=== PATIENT | female | born 1955 | race Caucasian/White ===

== ENCOUNTER → 2021-09-13 | Outpatient (CLI) | payer MEDICARE ==
--- NOTE | 2021-09-13 15:43 | XR ---
EXAMINATION TYPE: XR chest 2V DATE OF EXAM: 09/13/2021 COMPARISON: NONE TECHNIQUE: PA and lateral views submitted. HISTORY: Cough FINDINGS: The lungs are clear and there is no pneumothorax, pleural effusion, or focal pneumonia. Large 7.4 c m mass right upper lobe. Hyperinflation suggests COPD. Hypertrophic changes of the spine. Heart size normal with no overt failure. IMPRESSION: 1. Large 7.4 cm right upper lobe lung mass correlate for history of malignancy..
--- NOTE | 2021-09-13 16:15 | BD ---
EXAMINATION TYPE: Axial Bone Density DATE OF EXAM: 09/13/2021 COMPARISON: 2006 CLINICAL HISTORY: Postmenopausal screening Height: 5 FT 3 1/2 IN Weight: 126 FRAX RISK QUESTIONS: Alcohol (3 or more units per day): NO Family History (Parent hip fracture): NO Glucocorticoids (More than 3mos): NO (Ex: prednisone, prednisolone, methylprednisolone, dexamethasone, and hydrocortisone). History of Fracture in Adulthood: YES Secondary Osteoporosis: 1. Type 1 Diabetes: NO 2. Hyperthyroidism: NO 3. Menopause before 45: YES 4. Malnutrition: NO 5. Chronic liver disease: NO Rheumatoid Arthritis: YES Current Tobacco Use: YES RISK FACTORS HISTORY OF: Surgery to Spine/Hip(right/left)/Wrist (right/left): NO Family History of Osteoporosis: NO Active: SOMEWHAT Diet low in dairy products/other sources of calcium: NO Postmenopausal woman: YES HYST Take estrogen and/or progesterone medications: NO Lost more than 2 inches in height since high school: NO MEDICATIONS: Thyroid Medications: YES Which medication: SYNTHROID How Long: APPROX 30 YEARS Additional Medications: SYNTHROID, SINGULAIR, LISINOPRIL ,ALBUTEROL Additional History: EXAM MEASUREMENTS: Bone mineral densitometry was performed using the [employer] System. Bone mineral density as measured about the Lumbar spine is: ----- L1-L4(G/cm2): 1.099 T Score Values are as follows: ----- L2: -1.2 ----- L3: 0.2 ----- L4: -0.6 ----- L1-L4: -0.7 Bone mineral density has: NO CHANGE % since study of: 2006 Bone mineral density about the R hip (g/cm2): 0.777 Bone mineral density about the L hip (g/cm2): 0.803 T Score values are as follows: -----R Neck: -1.9 -----L Neck: -1.7 -----R Total: -2.0 -----L Total: -1.7 Bone mineral density has: DECREASED -11.3 % since study of: 2006 IMPRESSION: Osteopenia (T Score between -2.5 and -1). There is slightly increased risk of fracture and the patient may be considered for treatment. Re-Screen 2-5 years. NOTE: T-SCORE=SD OF THE YOUNG ADULT MEAN.
== END | disposition home or self-care (01) ==
LOC: RADBDWWP 15:06
PROVIDERS: ATTEND Family Medicine
DX: R91.8 Other nonspecific abnormal finding of lung field (principal); M85.89 Other specified disorders of bone density and structure, multiple sites; Z78.0 Asymptomatic menopausal state; Z79.899 Other long term (current) drug therapy
CPT/HCPCS: 71046; 77080

== ENCOUNTER → 2021-09-17 | Outpatient (CLI) | payer MEDICARE ==
--- NOTE | 2021-09-18 14:17 | MM ---
Reason for exam: screening (asymptomatic). Last mammogram was performed 14 years and 8 months ago. History: Patient is postmenopausal. 2 cyst aspirations of the left breast. Taking estrogen for 8 years 1 month beginning at age 43. Physical Findings: A clinical breast exam by your physician is recommended on an annual basis and results should be correlated with mammographic findings. MG 3D Screening Mammo W/Cad Bilateral CC and MLO view(s) were taken. Prior study comparison: January 26, 2007, bilateral screening mammogram w/CAD. December 12, 2005, CAD bilateral diagnostic mammogram. The breast tissue is heterogeneously dense. This may lower the sensitivity of mammography. There is chronic nodularity bilaterally. No significant changes when compared with prior studies. ASSESSMENT: Benign, BI-RAD 2 RECOMMENDATION: Routine screening mammogram of both breasts in 1 year.
== END | disposition home or self-care (01) ==
LOC: RADMAMWWP 16:29
PROVIDERS: ATTEND Family Medicine
DX: Z12.31 Encounter for screening mammogram for malignant neoplasm of breast (principal); Z78.0 Asymptomatic menopausal state
CPT/HCPCS: 77063; 77067

== ENCOUNTER → 2021-09-18 | Outpatient (CLI) | payer MEDICARE ==
[2021-09-18 07:57] LABS: African American GFR (CKD) >90 (>60 ml/min/1.73 sqM); Blood Urea Nitrogen 9 mg/dL (7-17); Non-African American GFR(CKD) 79 (>60 ml/min/1.73 sqM)
--- NOTE | 2021-09-18 09:30 | CT ---
EXAMINATION TYPE: CT chest w con DATE OF EXAM: 09/18/2021 COMPARISON: Radiograph 09/13/2021 HISTORY: 65-year-old female cough, D38.1, Lung mass TECHNIQUE: Contiguous axial scanning of the chest after the administration of 100 ml mL of Isovue 300 . Coronal/sagittal reconstructions performed. CT DLP: 163.1mGycm. Automatic exposure control utilized for a dose reduction. FINDINGS: Heart normal size with trace anterior pericardial effusion measuring 5 mm thick. Aorta normal caliber with mild atherosclerotic arch calcifications and balloon configuration to the a ortic arch. There is a medially located right upper lobe mass which cuts off the apical segmental bronchi measuri ng 7.9 cm craniocaudal (coronal image 35) by 6.7 x 5.9 cm. Some internal areas of early cavitary brown ge are demonstrated. There is contiguous right hilar lymphadenopathy measuring up to 3.5 x 2.2 cm. There is also adjacent precarinal lymphadenopathy measuring 1.9 x 1.8 cm. Moderate to advanced centrilobular emphysema. Septal thickening in the right upper lobe with some mil d volume loss and some patchy density which extends up to the apex likely postobstructive changes. Cl inical correlation to exclude postobstructive pneumonitis. 3 mm peripheral left basilar pulmonary nodule, axial image 51 is nonspecific. 3 mm left lower lobe pulmonary nodule, axial image 48 is nonspecific. 4 mm left mid lung pulmonary nodule, axial ex 35 is nonspecific. Nodular thickening left adrenal gland measuring 1.7 x 1.0 cm is nonspecific. Adrenal adenoma is possi ble. Scattered cortical hypodensities in both kidneys measuring up to 1.4 cm likely cysts. Bones: There is a destructive soft tissue lesion of the L1 vertebral body with mild extraosseous exte nsion into the ventral epidural space. IMPRESSION: 1. COPD with moderate to advanced emphysema. 2. Medial right upper lobe mass measuring 7.9 x 6.7 x 5.9 cm cutting off the apical segmental right u pper lobe bronchi. Endobronchial sampling recommended for tissue diagnosis. Some areas of early inter nal cavitation are demonstrated. Some postobstructive changes are present. Correlate to exclude posto bstructive pneumonitis. 3. Metastatic right hilar and precarinal lymphadenopathy. Additional lytic, soft tissue osseous metas tasis to the L1 vertebral body. 4. A 1.7 x 1.0 cm left adrenal gland nodule is nonspecific. Adrenal adenoma and early adrenal metasta sis are both in the differential. The former is somewhat favored. PET/CT can further evaluate. 5. A few left-sided pulmonary nodules measuring up to 4 mm are nonspecific.
== END | disposition home or self-care (01) ==
LOC: RADCTMAIN 07:03
PROVIDERS: ATTEND Family Medicine
DX: J43.9 Emphysema, unspecified (principal); R91.8 Other nonspecific abnormal finding of lung field; R59.0 Localized enlarged lymph nodes
CPT/HCPCS: 82565; 84520; 71260; 36415; Q9967

== ENCOUNTER 2021-09-27 10:48 | Day surgery (SDC) | payer MEDICARE ==
[2021-09-25 13:21] VITALS: BMI 21.9
[~2021-09-27 10:48] MED LIST: ALBUTEROL NEB (CONC) 2.5 MG/0.5 ML INHALATION ONE; LACTATED RINGERS 1,000 ML IV SCH; LIDOCAINE 2% (PF) 20 MG/ML 5 ML VIAL INHALATION ONE; LIDOCAINE VISCOUS 300 MG/15 ML CUP MUCOUS MEM ONE; SODIUM CHLORIDE 0.9% 1,000 ML IV SCH
[2021-09-27 11:22] VITALS: RESP 16
[2021-09-27] MEDS ORDERED: MIDAZOLAM 2 MG/2 ML VIAL IVP ONE (12:23)
--- NOTE | 2021-09-27 12:43 | CT ---
EXAMINATION TYPE: CT Chest theresa Felton Protocol DATE OF EXAM: 09/27/2021 COMPARISON: 09/18/2021 HISTORY: Pre bronchial navigation CT DLP: 658 mGycm, Automated exposure control for dose reduction was used. CONTRAST: Performed injected with 0 mL of Isovue 300. TECHNIQUE: Axial images were obtained at 5 mm thick sections. Reconstructed images are reviewed on [employer] computer in the coronal plane. FINDINGS: Portion of the thyroid visualized is normal. There is a 6.8 cm mass in the right upper lobe. This extends to the hilum. There is a 1.9 cm pretracheal lymph node just above the level of the aneesh. The ascending aorta jarad meter at the level of the main pulmonary artery is 3.2 cm. The main pulmonary artery diameter at the bifurcation is 2.[address] sections are obtained through the upper abdomen. Abdomen is essentially unremarkable. IMPRESSIONS: 1. Right upper lobe lung mass. 2. Enlarged pretracheal lymph node.
[2021-09-27] MEDS ORDERED: PHENYLEPHRINE-0.9% NACL SYG 1,000 MCG/10 ML SYRINGE ONE (13:00)
[2021-09-27] MEDS ORDERED: SUCCINYLCHOLINE CHLORIDE 100 MG/5 ML SYR IV ONE (13:00)
[2021-09-27] MEDS ORDERED: PROPOFOL 10 MG/ML 20 ML VIAL IV ONE (13:00)
[2021-09-27] MEDS ORDERED: fentaNYL (PF) 50 MCG/ML 2 ML AMP ONE (13:00)
[2021-09-27] MEDS ORDERED: MIDAZOLAM 2 MG/2 ML VIAL ONE (13:00)
--- NOTE | 2021-09-27 13:56 | P.PCN ---
Date of Procedure: 09/27/21 Operative Findings: Postoperative Diagnosis: 1 right upper lobe mass 2 mediastinal lymphadenopathy Postoperative Diagnosis: 1 right upper lobe mass 2 mediastinal lymphadenopathy 3 bronchial stenosis involving the apical segment of the right upper lobe with some endobronchial irregularities consistent of cancer. Procedure(s) Performed: 1 Navigational flexible bronchoscopy, airway inspection 2 endoscopic ultrasound (EBUS) 3 EBUS guided transbronchial needle aspirate of station 4R and station 10 R lymph nodes Surgeon: Casey Lorenzana Side Laster Staple #1: Kristine Mathew (Mervinjorje) Estimated Blood Loss (ml): 0 Pathology: other Condition: stable Disposition: same day Operative Findings: The patient underwent a CAT scan of the chest using the Veran protocol. The appropriate the pads were applied to her chest. The images were reviewed and the right upper lobe mass was mapped and all of this information was uploaded into a USB and later on into the medications hour. After obtaining the consent the patient was taken to the OR suite he was intubated and put on MV by anesthesia then the scope was advanced to the ET tube until the Trachea was seen and it was normal and then the aneesh appears normal then the scope advanced to the left main and VIKA LB1-LB3 were seen and no endobronchial lesions were seen then the scope advanced to the lingula and the LB4 and LB5 were seen and no endobronchial lesions were seen the scope retracted and advanced to the left lower lobes LB6 to LB12 were seen one by one and no endobronchial lesions, then the scope was retracted back to the aneesh and advanced to the Right main and RUL RB1 and RB2 and RB3 were seen one by one and there was endobronchial lesions causing significant narrowing and obstruction of the apical segment of the right upper lobe. Anterior segment and the posterior segments were patent within normal limits. Following that, the bronchoscope was retracted and advanced to the BI and RML RB4 and RB5 were seen and no endobronchial lesions were seen then it was retracted and advanced to the RLL RB6 to RB12 were seen one by one and no endobronchial lesions. The appropriate calibration was done using the aneesh and the secondary aneesh on the left as a reference points. Other navigational guidance, the bronchoscope was advanced to the right upper lobe and multiple biopsies of the right upper lobe mass was done. Following that, transbronchial brushing of the right upper lobe and lavage of the right upper lobe was done with a total of 80 mL of fluid was infused in 20 mL was suctioned back. The flexible bronchoscope was removed and the EBUS bronchoscope was introduced. The EBUS was used and the lymph nodes were examined. Direct measurement of the mediastinal lymph nodes revealed a 1.9x3 cm station 4R lymph node, and a very large station 10 R lymph node which was probably the extension of the right upper lobe mass. I performed transbronchial needle aspirate of station 4R and a total of 3 passes FNA without major bleeding station 10R lymph nodes were a total of 3 passes were obtained. No major bleeding and the scope was removed and taken out in total the patient was send to the floor in stable condition
[2021-09-27 14:05] VITALS: TEMP 97
--- NOTE | 2021-09-27 14:51 | XR ---
EXAMINATION TYPE: XR chest 1V portable DATE OF EXAM: 09/27/2021 COMPARISON: 09/13/2021 INDICATION: Post bronchoscopy TECHNIQUE: Single frontal view of the chest is obtained. FINDINGS: The heart size is normal. The pulmonary vasculature is normal. No pneumothorax is evident on this study. The 6 cm mass at the right suprahilar region is again evident. IMPRESSION: 1. No pneumothorax post bronchoscopy. Right suprahilar mass remains present.
[2021-09-27 15:09] VITALS: BP 152/78; PULSE 79
== END 2021-09-27 15:39 | disposition home or self-care (01) ==
LOC: ORWHC2ENDO 10:48
PROVIDERS: ATTEND Internal Medicine Critical Care Medicine
DX: C96.9 Malignant neoplasm of lymphoid, hematopoietic and related tissue, unspecified (principal); J44.9 Chronic obstructive pulmonary disease, unspecified; E03.9 Hypothyroidism, unspecified; I10 Essential (primary) hypertension; F17.210 Nicotine dependence, cigarettes, uncomplicated; K21.9 Gastro-esophageal reflux disease without esophagitis; M19.90 Unspecified osteoarthritis, unspecified site; Z79.899 Other long term (current) drug therapy
CPT/HCPCS: 88104; 88108; 88305; 88173; 88342; 88341; 71045; 71250; 31629; 31625; 31623; 31624; 31627; 31653; J2250; J3010; J2370; J0330; J2704

== ENCOUNTER → 2021-09-28 | Outpatient (CLI) | payer MEDICARE ==
--- NOTE | 2021-09-30 11:56 | PE ---
EXAMINATION TYPE: PET CT fusion skull to thigh DATE OF EXAM: 09/28/2021 COMPARISON: NONE chest CT September 18, 2021 HISTORY: Newly diagnosed lung cancer. TECHNIQUE: Following the intravenous administration of 11.79 mCi of F-18 FDG, whole body images are performed from the skull base to the midthigh. Images are reviewed on the computer in the coronal, a xial, and sagittal planes. Reconstructed rotating images are created on independent workstation and reviewed on the computer. A localization and attenuation correction CT is performed in conjunction with the PET scan. Blood glucose level equals 106 SCAN: Initial Scan FINDINGS: SKULL BASE AND NECK: No suspicious abnormal hypermetabolic uptake. Mild uptake at the level of vocal cords is symmetric presumed physiologic. CHEST, MEDIASTINUM, AND HILAR REGION: Frontal moderate to advanced underlying emphysematous change redemonstrated. Persistent hypermetaboli c left upper lobe mass extending to left hilar level measuring 6.8 x 5.9 cm axial image 84, central n ecrosis is present. Max SUV is 10.95. Abnormal hypermetabolic 2.3 x 1.8 cm paracarinal lymph node axial image 91, Max SUV is 6.25. ABDOMEN AND PELVIS: Normal excretion is seen. No adrenal masses. OSSEOUS STRUCTURES: Suspicious hypermetabolic destructive lesion L1 vertebral extends into the anteri or spinal canal axial image 142, max SUV is 8.88. OTHER CT: Ixhy-sg-lmfpeyjo calcified plaque bilateral carotid bulb level. Nasal septum deviated to ri ght of midline. Coronary calcifications are present. Mild/moderate calcified plaque of the aorta extends into branch vessels. Sigmoid colonic diverticulos is. There is a pessary type device in the vagina. Uterus is absent or atrophic. Slight underlying sco liotic curvature. IMPRESSION: Large right upper lung neoplasm extending to right hilar region. Abnormal paracarinal rosa elena nopathy. Large destructive lesion L1 vertebral extends into the anterior aspect of the spinal canal.
== END | disposition home or self-care (01) ==
LOC: RADPETMAIN 10:25
PROVIDERS: ATTEND Internal Medicine Critical Care Medicine
DX: C34.11 Malignant neoplasm of upper lobe, right bronchus or lung (principal); J43.9 Emphysema, unspecified; R59.0 Localized enlarged lymph nodes; G95.89 Other specified diseases of spinal cord
CPT/HCPCS: 78815; A9552

== ENCOUNTER 2021-10-25 10:15 | Inpatient (IN) | payer MEDICARE ==
[2021-10-25] MEDS ORDERED: SODIUM CHLORIDE 0.9% 1,000 ML IV STA (10:57)
[2021-10-25] MEDS ORDERED: MORPHINE SULFATE 4 MG/ML SYRINGE IVP STA (10:57)
[2021-10-25 11:28] LABS: Basophils % (A) 0 %; Eosinophils # (A) 0.3 k/uL (0-0.7); Eosinophils % (A) 1 %; HGB 12.4 gm/dL (11.4-16.0); Lymphocytes # (A) 0.5 k/uL (1.0-4.8); Lymphocytes % (A) 2 %; MCH 30.7 pg (25.0-35.0); MCHC 33.6 g/dL (31.0-37.0); MCV 91.2 fL (80.0-100.0); Mean Platelet Volume 7.3; Monocytes % (A) 4 %; Neutrophils # (A) 24.6 k/uL (1.3-7.7); Neutrophils % (A) 93 %; Platelet Count 376 k/uL (150-450); RBC 4.06 m/uL (3.80-5.40); RDW 14.7 % (11.5-15.5); WBC 26.6 k/uL (3.8-10.6)
[2021-10-25 11:45] LABS: ALT 22 U/L (4-34); African American GFR (CKD) >90 (>60 ml/min/1.73 sqM); Albumin 3.1 g/dL (3.5-5.0); Anion Gap 6 mmol/L; Blood Urea Nitrogen 29 mg/dL (7-17); Calcium 8.7 mg/dL (8.4-10.2); Carbon Dioxide 22 mmol/L (22-30); Chloride 107 mmol/L (98-107); Glucose 111 mg/dL (74-99); Non-African American GFR(CKD) >90 (>60 ml/min/1.73 sqM); Sodium 135 mmol/L (137-145); Total Bilirubin 0.6 mg/dL (0.2-1.3); Total Protein 6.7 g/dL (6.3-8.2)
[2021-10-25 11:52] LABS: AST 24 U/L (14-36); Alkaline Phosphatase 75 U/L (38-126); Potassium 4.2 mmol/L (3.5-5.1)
--- NOTE | 2021-10-25 12:16 | XR ---
EXAMINATION TYPE: XR Hip RT and AP Pelvis DATE OF EXAM: 10/25/2021 COMPARISON: NONE HISTORY: Pain TECHNIQUE: A single AP view of the pelvis is obtained. Two views of the right hip are obtained. FINDINGS: There is no acute fracture/dislocation evident in the pelvis. Moderate to severe arthropat hy of the hips. No acute fracture. Mild arthropathy of the SI joints. No destructive changes seen. IMPRESSION: 1. Arthropathy of the hips but no evidence of destructive change or acute fracture. Correlate with bandar ne scan as clinically warranted.
--- NOTE | 2021-10-25 12:17 | XR ---
EXAM TYPE: LUMBAR SPINE X RAY SERIES COMPARISON: NONE HISTORY: Pain TECHNIQUE: 3 views are submitted. FINDINGS: Compression fracture of L1 with probable destructive changes. Hypertrophic and degenerative change re maining lumbar spine. Vascular calcifications of the aorta. Facet arthropathy. IMPRESSION: 1. Probable pathologic compression fracture L1 which is been previously noted by PET scan. Correlate with MRI as clinically warranted. Suspected degree of retropulsion.
--- NOTE | 2021-10-25 12:48 | ED ---
Extremity Problem HPI - General Chief complaint: Extremity Problem,Nontraumatic Stated complaint: hip pain Time Seen by Provider: 10/25/21 10:43 Source: patient, RN notes reviewed Mode of arrival: wheelchair Limitations: no limitations - History of Present Illness Initial comments: Patient is a 65-year-old female that presents to the emergency Department from the oncologist's office for pain control. Patient notes she has not had a normal bowel movement in almost 2 weeks. Patient did have blood work this morning but it was outpatient. 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 She's done radiation to the spine 6. She notes that she cannot go home at this type of pain she is having difficulty just laying in bed by herself. Patient notes that her oncologist wants her admitted for pain control and constipation. Patient denied any other issues or complaints. She was very uncomfortable and emotionally distress while laying in bed. She denied chest pain shortness of breath headache nausea vomiting diarrhea constipation fever fatigue chills. - Related Data Home Medications Medication Instructions Recorded Confirmed Albuterol Sulfate [Proair Hfa] 2 puff INHALATION RT-Q6H PRN 09/25/21 10/25/21 Levothyroxine Sodium [Synthroid] 125 mcg PO DAILY 09/25/21 10/25/21 Lisinopril [Prinivil] 10 mg PO DAILY 09/25/21 10/25/21 Montelukast Sodium [Singulair] 10 mg PO HS 09/25/21 10/25/21 Multivitamins, Thera [Multivitamin 1 tab PO DAILY 09/25/21 10/25/21 (formulary)] Aspirin EC [Ecotrin Low Dose] 81 mg PO DAILY 10/25/21 10/25/21 Cholecalciferol [Vitamin D3 (25 25 mcg PO DAILY 10/25/21 10/25/21 Mcg = 1000 Iu)] Dexamethasone [Decadron] 4 mg PO Q6H 10/25/21 10/25/21 HYDROcodone/APAP 5-325MG [Gerry 1 tab PO Q6H PRN 10/25/21 10/25/21 5-325] Lisinopril [Prinivil] 5 mg PO HS 10/25/21 10/25/21 Vitamin C W/Zinc 1 tab PO DAILY 10/25/21 10/25/21 Zolpidem [Ambien] 10 mg PO HS PRN 10/25/21 10/25/21 Allergies Allergy/AdvReac Type Severity Reaction Status Date / Time procaine [From Novocain] Allergy Swelling Verified 10/25/21 12:40 Review of Systems ROS Statement: Those systems with pertinent positive or pertinent negative responses have been documented in the HPI. ROS Other: All systems not noted in ROS Statement are negative. Past Medical History Past Medical History: COPD, Hypertension Additional Past Medical History / Comment(s): "I have a spot on my lungs". 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 History of Any Multi-Drug Resistant Organisms: None Reported Past Surgical History: Hysterectomy Past Anesthesia/Blood Transfusion Reactions: No Reported Reaction Past Psychological History: No Psychological Hx Reported Smoking Status: Former smoker Past Alcohol Use History: None Reported Past Drug Use History: None Reported - Past Family History Father Family Medical History: No Reported History General Exam Limitations: no limitations General appearance: alert, in no apparent distress Head exam: Present: atraumatic, normocephalic, normal inspection Eye exam: Present: normal appearance, PERRL, EOMI. Absent: scleral icterus, conjunctival injection, periorbital swelling ENT exam: Present: normal exam, mucous membranes moist Neck exam: Present: normal inspection Respiratory exam: Present: normal lung sounds bilaterally. Absent: respiratory distress, wheezes, rales, rhonchi, stridor Cardiovascular Exam: Present: regular rate, normal rhythm, normal heart sounds. Absent: systolic murmur, diastolic murmur, rubs, gallop, clicks GI/Abdominal exam: Present: soft, normal bowel sounds. Absent: distended, tenderness, guarding, rebound, rigid Extremities exam: Present: normal inspection, full ROM, normal capillary refill. Absent: tenderness, pedal edema, joint swelling, calf tenderness Back exam: Present: normal inspection, paraspinal tenderness (Right low back) Neurological exam: Present: alert, oriented X3 Psychiatric exam: Present: normal affect, normal mood Skin exam: Present: warm, dry, intact, normal color. Absent: rash Course Vital Signs 10/25/21 10:33 Temperature 97.9 F Pulse Rate 91 Respiratory 17 Rate Blood Pressure 154/92 O2 Sat by Pulse 99 Oximetry Medical Decision Making - Medical Decision Making 65-year-old female complaining of low back pain and constipation for 2 weeks. Basic labs, x-ray lumbar and right hip ordered. Labs show a white count of 26.6, rest of labs are unremarkable. X-ray imaging shows no acute fractures dislocations or processes. Case discussed with Dr. Galloway, patient will be admitted per [facility] request for intractable pain and constipation. Dr. Aggarwal was consulted and will accept the admit, wants a CT of the abdomen and pelvis ordered. - Lab Data Result diagrams: 10/25/21 11:10/25/21 11: Lab Results 10/25/21 10/25/21 Range/Units 11:21 11:21 WBC 26.6 H (3.8-10.6) k/uL RBC 4.06 (3.80-5.40) m/uL Hgb 12.4 (11.4-16.0) gm/dL Hct 37.0 (34.0-46.0) % MCV 91.2 (80.0-100.0) fL MCH 30.7 (25.0-35.0) pg MCHC 33.6 (31.0-37.0) g/dL RDW 14.7 (11.5-15.5) % Plt Count 376 (150-450) k/uL MPV 7.3 Neutrophils % 93 % Lymphocytes % 2 % Monocytes % 4 % Eosinophils % 1 % Basophils % 0 % Neutrophils # 24.6 H (1.3-7.7) k/uL Lymphocytes # 0.5 L (1.0-4.8) k/uL Monocytes # 1.0 (0-1.0) k/uL Eosinophils # 0.3 (0-0.7) k/uL Basophils # 0.0 (0-0.2) k/uL Sodium 135 L (137-145) mmol/L Potassium 4.2 (3.5-5.1) mmol/L Chloride 107 (98-107) mmol/L Carbon Dioxide 22 (22-30) mmol/L Anion Gap 6 mmol/L BUN 29 H (7-17) mg/dL Creatinine 0.57 (0.52-1.04) mg/dL Est GFR (CKD-EPI)AfAm >90 (>60 ml/min/1.73 sqM) Est GFR (CKD-EPI)NonAf >90 (>60 ml/min/1.73 sqM) Glucose 111 H (74-99) mg/dL Calcium 8.7 (8.4-10.2) mg/dL Total Bilirubin 0.6 (0.2-1.3) mg/dL AST 24 (14-36) U/L ALT 22 (4-34) U/L Alkaline Phosphatase 75 (38-126) U/L Total Protein 6.7 (6.3-8.2) g/dL Albumin 3.1 L (3.5-5.0) g/dL - Radiology Data Radiology results: report reviewed, image reviewed X-ray of the lumbar spine: Probable pathologic compression fracture L1 which is been previously noted by PET scan. Correlate with MRI as clinically warranted suspect degree of retropulsion. X-ray the right hip and pelvis: Arthropathy of the hips but no evidence of distress change or acute fracture. Correlate with bone scan as clinically warranted. Disposition Clinical Impression: Constipation, Intractable pain Disposition: ADMITTED IP TO THIS [facility] Condition: Stable Is patient prescribed a controlled substance at d/c from ED?: No Referrals: Keenan Aggarwal DO [Primary Care Provider] - 1-2 days Time of Disposition: 12:53
[2021-10-25] MEDS ORDERED: NALOXONE 0.4 MG/ML 1 ML VIAL IV PRN (12:50)
--- NOTE | 2021-10-25 13:59 | CT ---
EXAMINATION TYPE: CT abdomen pelvis w con DATE OF EXAM: 10/25/2021 HISTORY: Rt hip pain, constipation, adenocarcinoma with bone mets CT DLP: 621.6mGycm Automated Exposure Control for Dose Reduction was Utilized. CONTRAST: CT scan of the abdomen and pelvis is performed without oral but with IV Contrast, patient injected wi th 100 mL of Isovue 300. COMPARISON: PET CT September 28, 2021. FINDINGS: LUNG BASES: Emphysematous change visualized lung bases.. LIVER/GB: No significant abnormality is appreciated. PANCREAS: No significant abnormality is seen. SPLEEN: No significant abnormality is seen. ADRENALS: No significant abnormality is seen. KIDNEYS: Scattered simple appearing thin-walled cysts seen throughout both kidneys. BOWEL: No suspicious small or large bowel dilatation. Moderate diffuse colonic fecal prominence now identified. Left and Sigmoid colonic diverticula are redemonstrated, no CT evidence for acute diverti culitis. UTERUS/ADNEXA: Uterus surgically absent or atrophic. Intravaginal pessary type device redemonstrated. LYMPH NODES: No greater than 1cm abdominal or pelvic lymph nodes are appreciated. OSSEOUS STRUCTURES: Redemonstration of pathologic fracture involving L1 vertebra with posterior exten jean paul into anterior spinal canal sagittal image 70. OTHER: Moderate peripheral plaque aorta extends into branch vessels. IMPRESSION: New moderate diffuse colonic fecal stasis. No bowel obstruction. No additional significan t new or acute finding is seen to account for patient's clinical symptoms.
[2021-10-25] MEDS: MORPHINE SULFATE 4 MG/ML SYRINGE IV PRN ×2 (16:47→22:35)
[2021-10-25] MEDS: SODIUM CHLORIDE 0.9% 1,000 ML IV SCH (19:29)
[2021-10-26] MEDS: MORPHINE SULFATE 4 MG/ML SYRINGE IV PRN ×3 (01:41→09:20)
[2021-10-26] MEDS: SODIUM CHLORIDE 0.9% 1,000 ML IV SCH ×3 (02:26→15:51)
[2021-10-26 11:24] VITALS: BMI 21.9
--- NOTE | 2021-10-26 11:55 | P.PAINCN ---
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, pt states no BM past 2 weeks since PET/cat scan, hypothyroid, bilateral pedal edema History of Any Multi-Drug Resistant Organisms: None Reported Past Surgical History: Hysterectomy Additional Past Surgical History / Comment(s): 09/27/21 bronchoscopy Past Anesthesia/Blood Transfusion Reactions: No Reported Reaction Smoking Status: Former smoker - Past Family History Father History Unknown: Yes Family Medical History: No Reported History Mother Family Medical History: Diabetes Mellitus Additional Family Medical History / Comment(s): Mother had a "bad heart" and at the age of 56yrs Medications and Allergies Home Medications Medication Instructions Recorded Confirmed Type Albuterol Sulfate [Proair Hfa] 2 puff INHALATION RT-Q6H PRN 09/25/21 10/25/21 History Levothyroxine Sodium [Synthroid] 125 mcg PO DAILY 09/25/21 10/25/21 History Lisinopril [Prinivil] 10 mg PO DAILY 09/25/21 10/25/21 History Montelukast Sodium [Singulair] 10 mg PO HS 09/25/21 10/25/21 History Multivitamins, Thera [Multivitamin 1 tab PO DAILY 09/25/21 10/25/21 History (formulary)] Aspirin EC [Ecotrin Low Dose] 81 mg PO DAILY 10/25/21 10/25/21 History Cholecalciferol [Vitamin D3 (25 25 mcg PO DAILY 10/25/21 10/25/21 History Mcg = 1000 Iu)] Dexamethasone [Decadron] 4 mg PO Q6H 10/25/21 10/25/21 History HYDROcodone/APAP 5-325MG [[place] 1 tab PO Q6H PRN 10/25/21 10/25/21 History 5-325] Lisinopril [Prinivil] 5 mg PO HS 10/25/21 10/25/21 History Vitamin C W/Zinc 1 tab PO DAILY 10/25/21 10/25/21 History Zolpidem [Ambien] 10 mg PO HS PRN 10/25/21 10/25/21 History Allergies Allergy/AdvReac Type Severity Reaction Status Date / Time procaine [From Novocain] Allergy Swelling Verified 10/25/21 12:40 Physical Exam Vitals: Vital Signs Temp Pulse Pulse Resp BP BP Pulse Ox 10/26/21 05:17 97.6 F 67 18 169/82 92 L 10/25/21 22:55 98.1 F 85 18 170/91 95 10/25/21 22:30 18 10/25/21 19:34 89 15 135/84 99 10/25/21 14:40 90 18 139/87 99 Intake and Output 10/25/21 10/26/21 10/26/21 22:59 06:59 14:59 Other: Voiding Method Toilet # Voids 3 Weight 56.245 kg Physical Examinations : -Constitutiona : Cooperative , not in acute distress . -HEENT : nech : supple , no Lymphadenopathy , normal thyroid size . : eyes : no ptosis , no icterus, no p hotophobia . - neurologic : Cranial nerve II to XII intact , no focal neurological deffecit . -psychatric : alert , oriented X 3 , appropriate affect , intact judgment and insight . -Lymphatic : no Lymphadenopathy . - musculoskeltal : Lumber spine moter stegnth lower extremities ,thigh and legs 5/5 Right side , 4/5 Left side deep tendon reflexes : normal Knee Jerk , normal ankle Jerk lumber facet Loading Test =positive Right , positive Left Range of motion of the lumbar spine Flexion 30 degrees, extension 10 degrees strait leg raising test = positive at 60 degree Fabere test= positive Right , and positive LT . Tenderness over the upper part of the lumbar spine. Sever tenderness over the Sacroiliac joint on the Right . Gaenslen test= positive right . Seated flexion test= positive right . Distraction test= positive right Sacroiliac compression test= positive right Results CBC & Chem 7: 10/25/21 11:21 10/25/21 11:21 Labs: Abnormal Lab Results - Last 24 Hours (Table) 10/25/21 Range/Units 11:21 Sodium 135 L (137-145) mmol/L BUN 29 H (7-17) mg/dL Glucose 111 H (74-99) mg/dL Albumin 3.1 L (3.5-5.0) g/dL Comments: X-ray of the lumbar spine compression fracture of L1 lumbar degenerative disc disease and lumbar facet arthropathy. pet scan= right upper lung neoplasm and large destructive lesion extend to L1 Assessment and Plan Plan: Assessment and plan=1-intractable pain. 2-pain secondary to malignancy. 3-compression fracture L1 vertebral. 4-lumbar spondylosis with lumbar facet arthropathy. 5-right sacroiliitis. The clinical findings support that currently most of the pain is coming from the right sacroiliac joint. She could benefit from a right sacroiliac joint steroid injection which can be done today under fluoroscopy guidance. Seizure risk and benefits and alternatives discussed with the patient she agreed to proceed Time with Patient: Greater than 30 PQRS Measure Charge Sheet PQRS Narrative: Do You Want the Pneumonia Yes Vaccine AT THIS TIME? Blood Pressure [Right Arm] 169/82 Blood Pressure 135/84 Pain Intensity [Right Hip] 8 Pain Intensity [Lower Back] 8 Pain Intensity 8 Pain Scale Used Numeric (1 - 10) Scale Used Numeric (1 - 10) Home Medications: Ambulatory Orders Albuterol Sulfate [Proair Hfa] 2 puff INHALATION RT-Q6H PRN 09/25/21 Levothyroxine Sodium [Synthroid] 125 mcg PO DAILY 09/25/21 Lisinopril [Prinivil] 10 mg PO DAILY 09/25/21 Montelukast Sodium [Singulair] 10 mg PO HS 09/25/21 Multivitamins, Thera [Multivitamin (formulary)] 1 tab PO DAILY 09/25/21 Aspirin EC [Ecotrin Low Dose] 81 mg PO DAILY 10/25/21 Cholecalciferol [Vitamin D3 (25 Mcg = 1000 Iu)] 25 mcg PO DAILY 10/25/21 Dexamethasone [Decadron] 4 mg PO Q6H 10/25/21 HYDROcodone/APAP 5-325MG [[place] 5-325] 1 tab PO Q6H PRN 10/25/21 Lisinopril [Prinivil] 5 mg PO HS 10/25/21 Vitamin C W/Zinc 1 tab PO DAILY 10/25/21 Zolpidem [Ambien] 10 mg PO HS PRN 10/25/21
[2021-10-26] MEDS ORDERED: ALBUTEROL NEBULIZED 2.5 MG/3 ML INHALATION PRN (13:15)
[2021-10-26] MEDS ORDERED: ZOLPIDEM 5 MG TAB PO PRN (13:15)
[2021-10-26] MEDS ORDERED: NA PHOS,M-B/NA PHOS,DI-BA 133 ML ENEMA RECTAL STA (13:15)
[2021-10-26] MEDS ORDERED: IV FLUID CONTINUATION 1,000 ML IV ONE (13:54)
[2021-10-26] MEDS ORDERED: ROPIVACAINE 5MG/ML 20ML VIAL ONE (14:28)
[2021-10-26] MEDS ORDERED: methylPREDNISolone ACETATE 40 MG/ML 1 ML VIAL ONE (14:28)
--- NOTE | 2021-10-26 14:54 | P.PCN ---
Date of Procedure: 10/26/21 Procedure(s) Performed: Procedure= Right sacroiliac joints steroid injection under fluoroscopy guidance (fluoroscopy image stored on file in the radiology Department ) Preoperative diagnosis= 1- Right sacroiliitis 2-lumbar degenerative disc disease 3-lumbar spondylosis with facet arthropathy Postoperative diagnosis=Same as preop Diagnosis . Complication = none Condition= stable Anesthesia= local anesthesia with ropivacaine 0.5% one mL. Indication for the procedure= patient complaining of low back pain , examination was positive for severe tenderness over the sacroiliac joints bilaterally and patient diagnosed with sacroiliitis, for this reason she was good candidate for sacroiliac joint steroid injection. Description of the procedure= procedure risk and benefits discussed with the patient, including but not limited, risk of infection and bleeding, and ALLERGIC reaction to the medication and not complete pain relief and patient agreed with the preceding patient taken to the operating room, placed in prone position or standard monitors applied to the patient then after induction of anesthesia back prepped with chlorhexidine 3 times , Then under strict sterile technique, I did the right sacroiliac joint the which was identified under fluoroscopy guidance been local infiltration of the skin and subcu interstitial with lidocaine 1% then 25-gauge Quincke Needle advanced slowly under fluoroscopy and placed in the right sacroiliac joint needle placement confirmed with AP and oblique and lateral view and after appropriate needle placement confirmed and after negative aspiration, or heme , then Ropivacaine 0.5% 4 mL, and 40 mg of Depo-Medrol mixed together and injected in the right sacroiliac joint after negative aspiration patient tolerated the procedure well without any complication.
--- NOTE | 2021-10-26 14:55 | FL ---
EXAMINATION TYPE: FL guided pain mgmt statistic DATE OF EXAM: 10/26/2021 HISTORY: Fluoroscopy time 7 seconds of fluoroscopy provided. IMPRESSION: 1. Fluoroscopy time.
[2021-10-26] MEDS: LACTULOSE 20 GM/30 ML CUP PO SCH (15:52)
[2021-10-26] MEDS: LEVOTHYROXINE 125 MCG TAB PO SCH (15:52)
[2021-10-26] MEDS: CHOLECALCIFEROL 25 MCG (1000 IU) TABLET PO SCH (15:52)
[2021-10-26] MEDS: PANTOPRAZOLE 40 MG/10 ML VIAL IVP SCH (15:52)
[2021-10-26] MEDS: lisinopriL 10 MG TAB PO SCH (15:53)
[2021-10-26] MEDS: ASPIRIN 81 MG PO SCH (15:53)
[2021-10-26] MEDS: MULTIVITAMINS, THERA 1 EACH TAB PO SCH (15:53)
--- NOTE | 2021-10-26 16:29 | P.CONS ---
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 This lesion has spinal canal invasion and the patient presents with significant pain. The patient completed a course of palliative radiotherapy from T12 to L2 finishing on October 19, 2021. She is subsequently been hospitalized now complaining of severe right buttock pain and also complaining of constipation. The patient reports that she was initially feeling much better after initiating radiotherapy and dexamethasone. However, she states this past she began having severe pain in the upper right buttock region. When this pain would flareup, it would radiate to the groin. This does seem to be in a different location from her prior pain, which was more consistent with her L1 metastatic disease. When the pain became intractable, she presented to the ER on October 25. She did have a repeat CT scan of the abdomen and pelvis which revealed the known L1 metastatic lesion, as well as moderate fecal stasis with no evidence of acute change. The patient was seen by pain management, and earlier today underwent an injection into the right sacroiliac joint with corticosteroids. There were concerned about right sacroiliitis. The patient reports she is feeling much better, but she is just recently completed this procedure. She has not attempted to get up and move around much since the procedure. Review of Systems Constitutional: Denies chills, Denies fever Eyes: denies blurred vision Ears, nose, mouth and throat: Denies headache Cardiovascular: Denies chest pain Respiratory: Denies cough, Denies dyspnea Gastrointestinal: Reports constipation Musculoskeletal: Reports low back pain Integumentary: Denies rash Neurological: Denies confusion Psychiatric: Denies anxiety, Denies depression 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, pt states no BM past 2 weeks since PET/cat scan, hypothyroid, bilateral pedal edema History of Any Multi-Drug Resistant Organisms: None Reported Past Surgical History: Hysterectomy Additional Past Surgical History / Comment(s): 09/27/21 bronchoscopy Past Anesthesia/Blood Transfusion Reactions: No Reported Reaction Smoking Status: Former smoker - Past Family History Father History Unknown: Yes Family Medical History: No Reported History Mother Family Medical History: Diabetes Mellitus Additional Family Medical History / Comment(s): Mother had a "bad heart" and di ed at the age of 56yrs Medications and Allergies Home Medications Medication Instructions Recorded Confirmed Type Albuterol Sulfate [Proair Hfa] 2 puff INHALATION RT-Q6H PRN 09/25/21 10/25/21 History Levothyroxine Sodium [Synthroid] 125 mcg PO DAILY 09/25/21 10/25/21 History Lisinopril [Prinivil] 10 mg PO DAILY 09/25/21 10/25/21 History Montelukast Sodium [Singulair] 10 mg PO HS 09/25/21 10/25/21 History Multivitamins, Thera [Multivitamin 1 tab PO DAILY 09/25/21 10/25/21 History (formulary)] Aspirin EC [Ecotrin Low Dose] 81 mg PO DAILY 10/25/21 10/25/21 History Cholecalciferol [Vitamin D3 (25 25 mcg PO DAILY 10/25/21 10/25/21 History Mcg = 1000 Iu)] Dexamethasone [Decadron] 4 mg PO Q6H 10/25/21 10/25/21 History HYDROcodone/APAP 5-325MG [[place] 1 tab PO Q6H PRN 10/25/21 10/25/21 History 5-325] Lisinopril [Prinivil] 5 mg PO HS 10/25/21 10/25/21 History Vitamin C W/Zinc 1 tab PO DAILY 10/25/21 10/25/21 History Zolpidem [Ambien] 10 mg PO HS PRN 10/25/21 10/25/21 History Allergies Allergy/AdvReac Type Severity Reaction Status Date / Time procaine [From Novocain] Allergy Swelling Verified 10/25/21 12:40 Physical Exam Vitals: Vital Signs Temp Pulse Pulse Resp BP BP Pulse Ox 10/26/21 13:55 89 20 152/76 95 10/26/21 12:32 97.7 F 85 17 158/88 94 L 10/26/21 05:17 97.6 F 67 18 169/82 92 L 10/25/21 22:55 98.1 F 85 18 170/91 95 10/25/21 22:30 18 10/25/21 19:34 89 15 135/84 99 Intake and Output 10/26/21 10/26/21 10/26/21 06:59 14:59 22:59 Intake Total 50 Balance 50 Intake: IV 50 Other: Voiding Method Toilet # Voids 3 Weight 56.245 kg - Constitutional General appearance: no acute distress - EENT Eyes: EOMI, PERRLA ENT: hearing grossly normal - Neck Neck: no lymphadenopathy - Respiratory Respiratory: bilateral: CTA - Cardiovascular Rhythm: regular - Gastrointestinal General gastrointestinal: no distended, no tenderness - Neurologic Neurologic: CNII-XII intact - Musculoskeletal Musculoskeletal: strength equal bilaterally - Psychiatric Psychiatric: A&O x's 3, appropriate affect, intact judgment & insight Results CBC & Chem 7: 10/25/21 11:21 10/25/21 11:21 CT scan - abdomen: report reviewed, image reviewed CT scan - pelvis: report reviewed, image reviewed Assessment and Plan Assessment: The patient is a 65-year-old female with a history of a clinical stage BLAISE (cT4, cN2, M1b) 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 This lesion has spinal canal invasion and the patient presents with significant pain. The patient completed a course of palliative radiotherapy from T12 to L2 finishing on October 19, 2021. She is subsequently been hospitalized now complaining of severe right buttock pain and also complaining of constipation. Plan: 1. Right upper buttock pain: This pain seems different in nature and location compared to the patient's initial presenting pain a few weeks ago prior to initiating radiotherapy. Following radiotherapy, the patient has had some increase in compression of the disc at L1. It is possible that the tumor is causing some more impingement, but this radiculopathy would not typically radiate to the buttock (although the groin is possible). I would recommend MRI of the LS spine to ensure that this increased compression has not resulted in retropulsion and spinal cord compromise. If this has, the patient would likely benefit from evaluation with spine surgery considering she has already completed a course of radiotherapy just 1 week prior. The patient is currently on 4 mg of Dex 4 times a day. 2. NSCLC - metastatic: Currently awaiting biomarker testing prior to initiation of therapy. Patient does need an MRI of the brain to rule out metastatic disease. This could be done as on an outpatient basis. Time with Patient: Less than 30
[2021-10-26] MEDS: MORPHINE SULFATE ER 15 MG TABLET PO SCH ×2 (16:33→21:30)
[2021-10-26] MEDS: dexAMETHasone 4 MG TAB PO SCH ×2 (16:34→17:22)
[2021-10-26] MEDS: MAG HYDROX/AL HYDROX/SIMETH 30 ML, diphenhydrAMINE ELIXIR 75 MG, LIDOCAINE VISCOUS 30 ML PO SCH ×6 (16:34→21:31)
[2021-10-26] MEDS: MONTELUKAST 10 MG TAB PO SCH (21:30)
[2021-10-26] MEDS: SENNOSIDES-DOCUSATE SODIUM 1 EACH TAB PO SCH (21:30)
[2021-10-26] MEDS: lisinopriL 5 MG TAB PO SCH (21:31)
--- NOTE | 2021-10-26 22:25 | P.CONS ---
History of Present Illness - Reason for Consult Consult date: 10/26/21 Pain and COnstipation Requesting physician: Chriss Roland - History of Present Illness Jud is referred by Dr Lorenzana after recent CT Scan and bronchoscopy revealed Adenocarcinoma of lung She stated having increasing cough X 6-12 months, had CXR > CT Scan > RUL 7.9 cm mass with R hilar & Pre-carinal lymphadenopathy. PET Scan: Highly supicious RUL and lymphadenopathy, as well as, L1 metastatic lesion. C/O increasing back pain X 2 months, Tyleno+Motrin not enough for pain control. Has anorexia & weight loss of 30-40 LBS X 3-6 months. She smoked 1 PPD X 45 years, quit 1 months ago. She was seen in office on 10/25/21 in severe pain. She also had complaints of severe constipation. She was taking 2 norco every 4 hours without relief. therefore she was sent to er for further evaluation. Pain management did evaluate and administer corticosteroid injection into hip. She stated this provided a little relief however still in pain. Her pain medication was adjusted with the addition of long acting Morphine sulfate and IV MS PRN. A bowel regimen was added to her daily scheduled medications as well. Review of Systems All systems: negative Constitutional: Reports as per HPI 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, pt states no BM past 2 weeks since PET/cat scan, hypothyroid, bilateral pedal edema History of Any Multi-Drug Resistant Organisms: None Reported Past Surgical History: Hysterectomy Additional Past Surgical History / Comment(s): 09/27/21 bronchoscopy Past Anesthesia/Blood Transfusion Reactions: No Reported Reaction Smoking Status: Former smoker - Past Family History Father History Unknown: Yes Family Medical History: No Reported History Mother Family Medical History: Diabetes Mellitus Additional Family Medical History / Comment(s): Mother had a "bad heart" and at the age of 56yrs Medications and Allergies Home Medications Medication Instructions Recorded Confirmed Type Albuterol Sulfate [Proair Hfa] 2 puff INHALATION RT-Q6H PRN 09/25/21 10/25/21 History Levothyroxine Sodium [Synthroid] 125 mcg PO DAILY 09/25/21 10/25/21 History Lisinopril [Prinivil] 10 mg PO DAILY 09/25/21 10/25/21 History Montelukast Sodium [Singulair] 10 mg PO HS 09/25/21 10/25/21 History Multivitamins, Thera [Multivitamin 1 tab PO DAILY 09/25/21 10/25/21 History (formulary)] Aspirin EC [Ecotrin Low Dose] 81 mg PO DAILY 10/25/21 10/25/21 History Cholecalciferol [Vitamin D3 (25 25 mcg PO DAILY 10/25/21 10/25/21 History Mcg = 1000 Iu)] Dexamethasone [Decadron] 4 mg PO Q6H 10/25/21 10/25/21 History HYDROcodone/APAP 5-325MG [[place] 1 tab PO Q6H PRN 10/25/21 10/25/21 History 5-325] Lisinopril [Prinivil] 5 mg PO HS 10/25/21 10/25/21 History Vitamin C W/Zinc 1 tab PO DAILY 10/25/21 10/25/21 History Zolpidem [Ambien] 10 mg PO HS PRN 10/25/21 10/25/21 History Allergies Allergy/AdvReac Type Severity Reaction Status Date / Time procaine [From Novocain] Allergy Swelling Verified 10/25/21 12:40 Physical Exam Vitals: Vital Signs Temp Pulse Pulse Resp BP BP Pulse Ox 10/26/21 13:55 89 20 152/76 95 10/26/21 12:32 97.7 F 85 17 158/88 94 L 10/26/21 05:17 97.6 F 67 18 169/82 92 L 10/25/21 22:55 98.1 F 85 18 170/91 95 10/25/21 22:30 18 10/25/21 19:34 89 15 135/84 99 10/25/21 14:40 90 18 139/87 99 Intake and Output 10/25/21 10/26/21 10/26/21 22:59 06:59 14:59 Other: Voiding Method Toilet Toilet # Voids 3 Weight 56.245 kg - Constitutional General appearance: cooperative, mild distress - EENT Eyes: EOMI ENT: hard of hearing, NA/AT - Neck Neck: normal ROM - Respiratory Respiratory: bilateral: diminished - Cardiovascular Rhythm: regular - Gastrointestinal General gastrointestinal: soft, tenderness - Integumentary Integumentary: pale - Neurologic non focal - Musculoskeletal Musculoskeletal: generalized weakness - Psychiatric Psychiatric: A&O x's 3 Results CBC & Chem 7: 10/25/21 11:21 10/25/21 11:21 CT scan - abdomen: report reviewed CT scan - pelvis: report reviewed Assessment and Plan (1) Constipation Current Visit: Yes Status: Acute Code(s): K59.00 - CONSTIPATION, UNSPECIFIED SNOMED Code(s): 67899580 (2) Intractable pain Current Visit: Yes Status: Acute Code(s): R52 - PAIN, UNSPECIFIED SNOMED Code(s): 42065022 (3) Mass of upper lobe of right lung Current Visit: No Status: Acute Code(s): R91.8 - OTHER NONSPECIFIC ABNORMAL FINDING OF LUNG FIELD SNOMED Code(s): 381333138 (4) Mediastinal adenopathy Current Visit: No Status: Acute Code(s): R59.0 - LOCALIZED ENLARGED LYMPH NODES SNOMED Code(s): 47725282 (5) Metastatic adenocarcinoma Current Visit: Yes Status: Acute Code(s): C79.9 - SECONDARY MALIGNANT NEOPLASM OF UNSPECIFIED SITE SNOMED Code(s): 844166724775205 Plan: Goals of admission is Pain management and Constipation relief - Senna-s and miralax scheduled - Pain Management following status post injection - Further evaluation of hip with MRI if not improved over next 24 hours - Status post Palliaitive radiation to spine and continues on dexamethasone for cord involvement, PPI - Long acting pain manageent added MSER 15 q12 and PRN MS IVP Physician Attest: I have completed the full history and physical and agree with above dictation, dictated as a scribe
[2021-10-27] MEDS: dexAMETHasone 4 MG TAB PO SCH ×4 (01:03→17:11)
[2021-10-27 04:25] LABS: Basophils % (A) 0 %; Eosinophils # (A) 0.1 k/uL (0-0.7); Eosinophils % (A) 1 %; HCT 34.7 % (34.0-46.0); HGB 11.3 gm/dL (11.4-16.0); Lymphocytes # (A) 0.4 k/uL (1.0-4.8); Lymphocytes % (A) 3 %; MCH 30.4 pg (25.0-35.0); MCHC 32.4 g/dL (31.0-37.0); MCV 93.7 fL (80.0-100.0); Mean Platelet Volume 7.1; Monocytes # (A) 0.3 k/uL (0-1.0); Monocytes % (A) 2 %; Neutrophils # (A) 15.6 k/uL (1.3-7.7); Neutrophils % (A) 94 %; Platelet Count 218 k/uL (150-450); RDW 15.5 % (11.5-15.5); WBC 16.7 k/uL (3.8-10.6)
[2021-10-27] MEDS: SODIUM CHLORIDE 0.9% 1,000 ML IV SCH ×4 (05:39→18:10)
[2021-10-27] MEDS: LEVOTHYROXINE 125 MCG TAB PO SCH (06:02)
[2021-10-27] MEDS ORDERED: ASCORBIC ACID 500 MG TAB PO SCH (09:00)
[2021-10-27] MEDS: CHOLECALCIFEROL 25 MCG (1000 IU) TABLET PO SCH (10:22)
[2021-10-27] MEDS: MULTIVITAMINS, THERA 1 EACH TAB PO SCH (10:23)
[2021-10-27] MEDS: lisinopriL 10 MG TAB PO SCH (10:24)
[2021-10-27] MEDS: ASPIRIN 81 MG PO SCH (10:24)
[2021-10-27] MEDS: MORPHINE SULFATE ER 15 MG TABLET PO SCH ×2 (10:24→20:21)
[2021-10-27] MEDS: PANTOPRAZOLE 40 MG/10 ML VIAL IVP SCH (10:25)
[2021-10-27] MEDS: SENNOSIDES-DOCUSATE SODIUM 1 EACH TAB PO SCH ×2 (10:28→20:21)
[2021-10-27] MEDS: polyethylene glycoL 3350 17 GM POWD.PACK PO SCH (10:28)
[2021-10-27] MEDS: LACTULOSE 20 GM/30 ML CUP PO SCH (10:29)
[2021-10-27 10:58] LABS: African American GFR (CKD) 121.1 (60.0-200.0); Anion Gap 11.4 mmol/L (10.00-18.00); BUN/Creat Ratio 30.29 Ratio (12.00-20.00); Blood Urea Nitrogen 13.6 mg/dL (9.0-27.0); Calcium 8.1 mg/dL (8.7-10.3); Carbon Dioxide 19.2 mmol/L (20.0-27.5); Non-African American GFR(CKD) 104.5 (60.0-200.0); Potassium 3.5 mmol/L (3.5-5.5)
[2021-10-27] MEDS: MORPHINE SULFATE 4 MG/ML SYRINGE IV PRN (14:12)
[2021-10-27] MEDS: MAG HYDROX/AL HYDROX/SIMETH 30 ML, diphenhydrAMINE ELIXIR 75 MG, LIDOCAINE VISCOUS 30 ML PO SCH ×9 (14:12→20:23)
[2021-10-27] MEDS: HYDROmorphone 0.5 MG/0.5 ML SYRINGE IVP PRN (16:05)
[2021-10-27] MEDS: KETOROLAC 30 MG/ML 1 ML VIAL IVP PRN (17:10)
[2021-10-27] MEDS: methylPREDNISolone SOD SUCCI 125 MG/2 ML VIAL IV SCH ×2 (18:06→23:11)
--- NOTE | 2021-10-27 18:43 | HP ---
HISTORY AND PHYSICAL I am covering for Dr. Aggarwal. DATE OF SERVICE: 10/27/2021 CHIEF COMPLAINT: Right hip pain. 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 The patient apparently had an injection in the back. The patient also had radiation to the spine 6 times. Because of significant pain on the hip which is felt while twisting, the patient came to [facility] and was admitted for further evaluation and treatment. Multiple consultants are following the patient closely. Multiple x-rays and a CT scan have been done which were personally reviewed by me. The plain radiograph showed arthropathy of the hip, but no evidence of any destruction. CT scan of the abdomen and pelvis was also done which showed moderate diffuse colonic fecal stasis. Dr. Goldberg performed right sacroiliac joint steroid injection under fluoroscopy. Dr. Bennett is following the patient as well as hematology/oncology team. The patient also had mediastinal adenopathy. There is no history of any fever, rigor or chills at this time. PAST MEDICAL HISTORY: History of COPD, history of GERD, hypertension, hyperlipidemia, hypothyroidism, adenocarcinoma of the right upper lung with metastases. HOME MEDICATIONS: Ambien, vitamin Z, multivitamin, Singulair, Prinivil, Synthroid, hydrocodone, dexamethasone, cholecalciferol, aspirin, albuterol. Doses are reviewed. ALLERGIES: PROCAINE. FAMILY HISTORY: History of heart disease in mother. SOCIAL HISTORY: History of alcohol. History of THC. REVIEW OF SYSTEMS: ENT: No diminished hearing. No diminished vision. CARDIOVASCULAR SYSTEM: As mentioned earlier. RESPIRATORY SYSTEM: As mentioned earlier. GI: As mentioned earlier. : No dysuria. NERVOUS SYSTEM: No numbness, weakness. ALLERGY/IMMUNOLOGY: No asthma or hay fever. MUSCULOSKELETAL: As mentioned earlier. HEMATOLOGY/ONCOLOGY: No history of anemia. ENDOCRINE: As mentioned earlier. CONSTITUTIONAL: As mentioned earlier. DERMATOLOGY: Negative. RHEUMATOLOGY: Negative. PSYCHIATRY: As mentioned earlier. PHYSICAL EXAMINATION: Patient alert and oriented x3. Pulse 70, blood pressure 151/81, respiration 18, temperature is 98.4, pulse ox 94% on room air. HEENT: Conjunctivae normal. NECK: No jugular venous distention. CARDIOVASCULAR: S1, S2 muffled. RESPIRATION: Breath sounds diminished at the bases. No rhonchi. No crackles. ABDOMEN: Soft. LEGS: Right leg pain present. NERVOUS SYSTEM: No focal deficit. LABS: WBC 16.7, hemoglobin 11.3. Sodium 137, potassium 3.5. ASSESSMENT: 1. Right leg pain and right hip pain and gait dysfunction. Rule out metastases. 2. Right upper lobe adenocarcinoma with metastases, status post spine radiation therapy. 3. Mediastinal lymphadenopathy. 4. Increased white count. 5. Anemia, normocytic. 6. Mild lymphopenia. 7. History of chronic obstructive pulmonary disease. 8. History of gastroesophageal reflux disease. 9. Hypertension. 10.History of pneumonia. 11.History of hypothyroidism. 12.History of hysterectomy. 13.Remote history of nicotine dependence. 14.FULL CODE. RECOMMENDATIONS AND DISCUSSION: In this 65-year-old woman who presented with multiple complex medical issues, we will monitor the patient closely, continue the current medications, continue with symptomatic treatment. Otherwise at this time I recommend continuing with pain medications. I would continue with dexamethasone, monitor blood sugars closely. I would also recommend Toradol. Repeat labs. Recommend a bone scan also. Prognosis is guarded because of multiple complex medical issues. Further recommendations to follow. A copy of this dictation is being forwarded to Dr. Aggarwal, who is the primary physician. MMTANISHAL / DEBIN: [id number] /
[2021-10-27 19:54] LABS: Glucose,Whole Blood 143 mg/dL (75-99)
[2021-10-27] MEDS: lisinopriL 5 MG TAB PO SCH (20:21)
[2021-10-27] MEDS: INSULIN ASPART (NovoLOG) 100 UNIT/ML VIAL SQ SCH (20:21)
[2021-10-27] MEDS: MONTELUKAST 10 MG TAB PO SCH (20:21)
[2021-10-28] MEDS: HYDROmorphone 0.5 MG/0.5 ML SYRINGE IVP PRN (01:41)
[2021-10-28] MEDS: SODIUM CHLORIDE 0.9% 1,000 ML IV SCH ×3 (03:33→17:37)
[2021-10-28] MEDS: KETOROLAC 30 MG/ML 1 ML VIAL IVP PRN ×3 (05:12→17:34)
[2021-10-28] MEDS: methylPREDNISolone SOD SUCCI 125 MG/2 ML VIAL IV SCH ×4 (05:12→23:16)
[2021-10-28] MEDS: LEVOTHYROXINE 125 MCG TAB PO SCH (05:13)
[2021-10-28 05:35] LABS: Basophils % (A) 0 %; Eosinophils % (A) 0 %; HCT 36.6 % (34.0-46.0); HGB 11.6 gm/dL (11.4-16.0); Lymphocytes # (A) 0.4 k/uL (1.0-4.8); Lymphocytes % (A) 3 %; MCH 30.2 pg (25.0-35.0); MCHC 31.6 g/dL (31.0-37.0); MCV 95.6 fL (80.0-100.0); Mean Platelet Volume 7.2; Monocytes # (A) 0.3 k/uL (0-1.0); Monocytes % (A) 2 %; Neutrophils # (A) 16.2 k/uL (1.3-7.7); Neutrophils % (A) 95 %; Platelet Count 217 k/uL (150-450); RBC 3.83 m/uL (3.80-5.40); RDW 15.4 % (11.5-15.5); WBC 17.1 k/uL (3.8-10.6)
[2021-10-28 07:25] LABS: Glucose,Whole Blood 170 mg/dL (75-99)
[2021-10-28] MEDS: polyethylene glycoL 3350 17 GM POWD.PACK PO SCH (08:20)
[2021-10-28] MEDS: CHOLECALCIFEROL 25 MCG (1000 IU) TABLET PO SCH (08:21)
[2021-10-28] MEDS: MULTIVITAMINS, THERA 1 EACH TAB PO SCH (08:21)
[2021-10-28] MEDS: MORPHINE SULFATE ER 15 MG TABLET PO SCH ×2 (08:21→22:22)
[2021-10-28] MEDS: LACTULOSE 20 GM/30 ML CUP PO SCH (08:21)
[2021-10-28] MEDS: SENNOSIDES-DOCUSATE SODIUM 1 EACH TAB PO SCH ×2 (08:21→22:21)
[2021-10-28] MEDS: INSULIN ASPART (NovoLOG) 100 UNIT/ML VIAL SQ SCH ×4 (08:21→22:22)
[2021-10-28] MEDS: ASPIRIN 81 MG PO SCH (08:21)
[2021-10-28] MEDS: PANTOPRAZOLE 40 MG TABLET PO SCH (08:21)
[2021-10-28] MEDS: ASCORBIC ACID 500 MG TAB PO SCH (08:22)
[2021-10-28] MEDS: lisinopriL 10 MG TAB PO SCH (08:22)
[2021-10-28] MEDS: MAG HYDROX/AL HYDROX/SIMETH 30 ML, diphenhydrAMINE ELIXIR 75 MG, LIDOCAINE VISCOUS 30 ML PO SCH ×9 (08:24→22:23)
[2021-10-28 10:51] LABS: African American GFR (CKD) 112.2 (60.0-200.0); Albumin 2.9 g/dL (3.8-4.9); Albumin/Globulin Ratio 1.06 (1.60-3.17); Anion Gap 11.9 mmol/L (10.00-18.00); BUN/Creat Ratio 34.74 Ratio (12.00-20.00); Blood Urea Nitrogen 19.7 mg/dL (9.0-27.0); Calcium 8.4 mg/dL (8.7-10.3); Carbon Dioxide 21.4 mmol/L (20.0-27.5); Globulin 2.7 g/dL (1.6-3.3); Non-African American GFR(CKD) 96.8 (60.0-200.0); Potassium 3.8 mmol/L (3.5-5.5); Total Bilirubin 0.3 mg/dL (0.30-1.20); Total Protein 5.6 g/dL (6.2-8.2)
[2021-10-28] MEDS: HYDROcodone/APAP 5-325MG 1 EACH TAB PO PRN ×2 (11:32→17:35)
[2021-10-28 12:14] LABS: Glucose,Whole Blood 81 mg/dL (75-99)
[2021-10-28 17:19] LABS: Glucose,Whole Blood 128 mg/dL (75-99)
--- NOTE | 2021-10-28 18:00 | PN ---
PROGRESS NOTE DATE OF SERVICE: 10/28/2021 I am covering for Dr. Aggarwal. This 65-year-old woman who was admitted with intractable pain is being closely monitored at this time. The patient also had a gluteal injection, also recently. The patient on multiple medications. The patient closely monitor monitored at this time. Lab bustos, white count is elevated to 17.1. The patient had evidence of mental status also on the recently done PET scan. Past medical history reviewed. REVIEW OF SYSTEMS: Cardiovascular: No angina. No palpitations. Respiration: As mentioned earlier. GI as mentioned earlier. : No dysuria. Nervous system: No numbness or weakness. CURRENT MEDICATIONS: Are reviewed and include: [place], vitamin C, aspirin, vitamin D3, Dilaudid. Doses reviewed. PHYSICAL EXAMINATION: Alert and oriented times three. Pulse is 81, blood pressure 170/84, respiration 18, temperature 97.8, pulse ox 95 percent on room air. HEENT: Conjunctivae normal. Neck: No JVD. Cardiovascular: S1, S2. Respiratory: Breath sounds diminished in the bases. A few scattered rhonchi. Abdomen: Soft. Nervous system: No focal deficits. LAB STUDIES: WBC 17.1. Labs are noted. ASSESSMENT: 1. Right leg pain and right hip and gluteal pain with severe gait dysfunction. Rule out metastasis. 2. Right upper lobe adenocarcinoma with METS status post spine radiation therapy. 3. Constipation. 4. Status post gluteal injection. 5. Mediastinal lymphadenopathy. 6. Increased WBC. 7. Anemia, normocytic. 8. Mild lymphopenia. 9. History of chronic obstructive pulmonary disease. 10.History of gastroesophageal reflux disease. 11.Hypertension. 12.History of pneumonia. 13.History of hypothyroidism. 14.History of hysterectomy. 15.Remote history of nicotine dependence. 16.FULL CODE: RECOMMENDATIONS AND DISCUSSION: Recommend to continue current medications, steroids, continue symptomatic treatment. Increase the dose of Toradol to 30 mg IV q.6h p.r.n. Otherwise, monitor renal functions closely. Otherwise Dr. Kenean Aggarwal will follow tomorrow and Hematology/Oncology and Radiation Oncology input appreciated. MMODL / DEBIN: [id number] /
[2021-10-28 20:16] LABS: Glucose,Whole Blood 176 mg/dL (75-99)
[2021-10-28] MEDS: MONTELUKAST 10 MG TAB PO SCH (22:21)
[2021-10-28] MEDS: lisinopriL 5 MG TAB PO SCH (22:22)
[2021-10-29] MEDS: HYDROcodone/APAP 5-325MG 1 EACH TAB PO PRN ×2 (03:28→12:32)
[2021-10-29] MEDS: KETOROLAC 30 MG/ML 1 ML VIAL IVP PRN (03:29)
[2021-10-29] MEDS: SODIUM CHLORIDE 0.9% 1,000 ML IV SCH ×2 (03:32→09:46)
[2021-10-29] MEDS: methylPREDNISolone SOD SUCCI 125 MG/2 ML VIAL IV SCH ×2 (06:01→12:33)
[2021-10-29] MEDS: LEVOTHYROXINE 125 MCG TAB PO SCH (06:03)
[2021-10-29 07:25] LABS: Glucose,Whole Blood 89 mg/dL (75-99)
[2021-10-29] MEDS: INSULIN ASPART (NovoLOG) 100 UNIT/ML VIAL SQ SCH ×4 (07:38→21:29)
[2021-10-29 08:07] LABS: Basophils # (A) 0.1 k/uL (0-0.2); Basophils % (A) 1 %; Eosinophils % (A) 0 %; HCT 38.7 % (34.0-46.0); HGB 11.9 gm/dL (11.4-16.0); Hypochromasia Moderate; Lymphocytes # (A) 0.3 k/uL (1.0-4.8); Lymphocytes % (A) 2 %; MCH 30.8 pg (25.0-35.0); MCHC 30.8 g/dL (31.0-37.0); MCV 100.1 fL (80.0-100.0); Macrocytosis Slight; Mean Platelet Volume 9.4; Monocytes # (A) 0.4 k/uL (0-1.0); Monocytes % (A) 2 %; Neutrophils # (A) 16.2 k/uL (1.3-7.7); Neutrophils % (A) 94 %; Platelet Count 152 k/uL (150-450); RBC 3.87 m/uL (3.80-5.40); RDW 15.3 % (11.5-15.5); WBC 17.3 k/uL (3.8-10.6)
[2021-10-29 09:28] LABS: African American GFR (CKD) 110.1 (60.0-200.0); Anion Gap 13.9 mmol/L (10.00-18.00); Calcium 8.4 mg/dL (8.7-10.3); Carbon Dioxide 18.1 mmol/L (20.0-27.5); Potassium 4.3 mmol/L (3.5-5.5)
[2021-10-29] MEDS: SENNOSIDES-DOCUSATE SODIUM 1 EACH TAB PO SCH ×2 (09:43→21:27)
[2021-10-29] MEDS: PANTOPRAZOLE 40 MG TABLET PO SCH (09:43)
[2021-10-29] MEDS: lisinopriL 10 MG TAB PO SCH (09:43)
[2021-10-29] MEDS: MULTIVITAMINS, THERA 1 EACH TAB PO SCH (09:43)
[2021-10-29] MEDS: ASPIRIN 81 MG PO SCH (09:44)
[2021-10-29] MEDS: MORPHINE SULFATE ER 15 MG TABLET PO SCH ×2 (09:44→21:27)
[2021-10-29] MEDS: CHOLECALCIFEROL 25 MCG (1000 IU) TABLET PO SCH (09:44)
[2021-10-29] MEDS: ASCORBIC ACID 500 MG TAB PO SCH (09:44)
[2021-10-29] MEDS: LACTULOSE 20 GM/30 ML CUP PO SCH (09:45)
[2021-10-29] MEDS: polyethylene glycoL 3350 17 GM POWD.PACK PO SCH (09:45)
[2021-10-29] MEDS: MAG HYDROX/AL HYDROX/SIMETH 30 ML, diphenhydrAMINE ELIXIR 75 MG, LIDOCAINE VISCOUS 30 ML PO SCH ×9 (09:46→21:28)
--- NOTE | 2021-10-29 10:31 | P.PN ---
Subjective Progress Note Date: 10/29/21 Principal diagnosis: Constipation, intractable back/hip pain In follow-up today patient reports bowel movement, decrease in her pain. She is status post steroid injection with pain management and she is on tramadol with good results. Objective - Vital Signs Vital signs: Vital Signs Temp 97.7 F 10/29/21 05:00 Pulse 68 10/29/21 05:00 Resp 16 10/29/21 05:00 BP 168/92 10/29/21 05:00 Pulse Ox 98 10/29/21 05:00 Intake & Output 10/28/21 10/29/21 10/29/21 18:59 06:59 18:59 Intake Total 120 590 Balance 120 590 Intake: Oral 120 590 Other: Voiding Method Toilet Bedside Commode Incontinent Bedpan # Voids 1 3 # Bowel Movements 3 2 - Constitutional General appearance: Present: average body habitus, cooperative, no acute distress - EENT Eyes: Present: anicteric sclerae, EOMI ENT: Present: hearing grossly normal - Respiratory Details: Respirations even and unlabored - Cardiovascular Rhythm: regular Heart sounds: normal: S1, S2 Abnormal Heart Sounds: Absent: systolic murmur, diastolic murmur, rub, S3 G allop, S4 Gallop, click, other - Peripheral edema leg Peripheral Edema: bilateral: None - Gastrointestinal General gastrointestinal: Present: soft - Integumentary Integumentary: Present: normal - Neurologic Neurologic: Present: CNII-XII intact - Musculoskeletal Musculoskeletal Comment(s): Patient is able to flex at the hip, bilateral lower extremity strength slightly weak but symmetrical. - Psychiatric Psychiatric: Present: A&O x's 3, appropriate affect, intact judgment & insight - Labs CBC & Chem 7: 10/29/21 06:44 10/29/21 06:44 Labs: Abnormal Lab Results - Last 24 Hours (Table) 10/28/21 10/28/21 10/28/21 Range/Units 05:06 17:17 20:14 WBC (3.8-10.6) k/uL MCV (80.0-100.0) fL MCHC (31.0-37.0) g/dL Neutrophils # (1.3-7.7) k/uL Lymphocytes # (1.0-4.8) k/uL Carbon Dioxide (20.0-27.5) mmol/L BUN/Creatinine Ratio 34.74 H (12.00-20.00) Ratio Glucose 154 H (70-110) mg/dL POC Glucose (mg/dL) 128 H 176 H (75-99) mg/dL Calcium 8.4 L (8.7-10.3) mg/dL AST 11 L (13-35) U/L Total Protein 5.6 L (6.2-8.2) g/dL Albumin 2.9 L (3.8-4.9) g/dL Albumin/Globulin Ratio 1.06 L (1.60-3.17) g/dL 10/29/21 10/29/21 Range/Units 06:44 06:44 WBC 17.3 H (3.8-10.6) k/uL MCV 100.1 H (80.0-100.0) fL MCHC 30.8 L (31.0-37.0) g/dL Neutrophils # 16.2 H (1.3-7.7) k/uL Lymphocytes # 0.3 L (1.0-4.8) k/uL Carbon Dioxide 18.1 L (20.0-27.5) mmol/L BUN/Creatinine Ratio 35.00 H (12.00-20.00) Ratio Glucose (70-110) mg/dL POC Glucose (mg/dL) (75-99) mg/dL Calcium 8.4 L (8.7-10.3) mg/dL AST (13-35) U/L Total Protein (6.2-8.2) g/dL Albumin (3.8-4.9) g/dL Albumin/Globulin Ratio (1.60-3.17) g/dL Assessment and Plan (1) Constipation due to opioid therapy Narrative/Plan: Patient has had a BM. She will continue on stool softening agents/mild laxative as long as she is on pain medications. Current Visit: Yes Status: Acute Priority: High Code(s): K59.03 - DRUG INDUCED CONSTIPATION; T40.2X5A - ADVERSE EFFECT OF OTHER OPIOIDS, INITIAL ENCOU NTER SNOMED Code(s): 841542805704648 (2) Intractable pain Narrative/Plan: Patient is status post radiation to the spinal lesion. Patient has received a steroid injection into the hip with improvement in pain. Patient states that Tramadol is working very well for her pain. Continue as prescribed. Current Visit: Yes Status: Resolved Priority: High Code(s): R52 - PAIN, UNSPECIFIED SNOMED Code(s): 20437581 (3) Metastatic adenocarcinoma Narrative/Plan: Patient has completed radiation for spinal lesion that was causing symptoms. She continues on dexamethasone 4 mg 4 times a day. F/U as scheduled Current Visit: Yes Status: Acute Priority: High Code(s): C79.9 - SECONDARY MALIGNANT NEOPLASM OF UNSPECIFIED SITE SNOMED Code(s): 393852020742459 Plan: Doctor attests: I performed a history and physical examination of this patient, developed impression and plan of care. Discussed with dictator. I agree with dictators note, documented as a scribe.
[2021-10-29 12:33] LABS: Glucose,Whole Blood 151 mg/dL (75-99)
--- NOTE | 2021-10-29 15:32 | P.PN ---
Subjective Progress Note Date: 10/29/21 Principal diagnosis: right hip pain / history of metastatic lung ca Patient reports she is still having some intermittent right hip pain. This can radiate to the groin or up the back. She states it can be up to 6-7/10 when it comes on. Still is better than prior to admission. Has been up with walker. Was very constipated, but got relief yesterday. She is using [place] + MS Contin. Objective - Vital Signs Vital signs: Vital Signs Temp 97.6 F 10/29/21 12:33 Pulse 83 10/29/21 12:33 Resp 20 10/29/21 12:33 BP 182/95 10/29/21 12:33 Pulse Ox 97 10/29/21 12:33 Intake & Output 10/28/21 10/29/21 10/29/21 18:59 06:59 18:59 Intake Total 120 590 Balance 120 590 Intake: Oral 120 590 Other: Voiding Method Toilet Bedside Commode Bedside Commode Incontinent Bedpan Bedpan # Voids 1 3 # Bowel Movements 3 2 - Constitutional General appearance: Present: no acute distress - EENT Eyes: Present: EOMI, PERRLA ENT: Present: hearing grossly normal - Neck Neck: Absent: lymphadenopathy - Respiratory Respiratory: bilateral: CTA - Cardiovascular Rhythm: regular - Gastrointestinal General gastrointestinal: Absent: distended - Integumentary Integumentary: Absent: calor, cellulitis - Neurologic Neurologic: Present: CNII-XII intact - Musculoskeletal Musculoskeletal: Present: strength equal bilaterally - Labs CBC & Chem 7: 10/29/21 06:44 10/29/21 06:44 Labs: Abnormal Lab Results - Last 24 Hours (Table) 10/28/21 10/28/21 10/29/21 Range/Units 17:17 20:14 06:44 WBC 17.3 H (3.8-10.6) k/uL MCV 100.1 H (80.0-100.0) fL MCHC 30.8 L (31.0-37.0) g/dL Neutrophils # 16.2 H (1.3-7.7) k/uL Lymphocytes # 0.3 L (1.0-4.8) k/uL Carbon Dioxide (20.0-27.5) mmol/L BUN/Creatinine Ratio (12.00-20.00) Ratio POC Glucose (mg/dL) 128 H 176 H (75-99) mg/dL Calcium (8.7-10.3) mg/dL 10/29/21 10/29/21 Range/Units 06:44 12:32 WBC (3.8-10.6) k/uL MCV (80.0-100.0) fL MCHC (31.0-37.0) g/dL Neutrophils # (1.3-7.7) k/uL Lymphocytes # (1.0-4.8) k/uL Carbon Dioxide 18.1 L (20.0-27.5) mmol/L BUN/Creatinine Ratio 35.00 H (12.00-20.00) Ratio POC Glucose (mg/dL) 151 H (75-99) mg/dL Calcium 8.4 L (8.7-10.3) mg/dL Assessment and Plan Assessment: The patient is a 65-year-old female with a history of a clinical stage BLAISE (cT4, cN2, M1b) 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 This lesion has spinal canal invasion and the patient presents with significant pain. The patient completed a course of palliative radiotherapy from T12 to L2 finishing on October 19, 2021. She is subsequently been hospitalized now complaining of severe right buttock pain and also complaining of constipation. Plan: 1. Right upper buttock pain: This pain seems different in nature and location compared to the patient's initial presenting pain a few weeks ago prior to initiating radiotherapy (was more mid-lower back consistent with L1 lesion). Pain is improving, but now on long acting pain medication. Would start to wean Decadron to 4 mg TID. Still consider MRI of the Lumbar/sacrum if patient is not progressing. No clear need for further radiotherapy to this area. Time with Patient: Less than 30
[2021-10-29 17:35] LABS: Glucose,Whole Blood 142 mg/dL (75-99)
[2021-10-29 21:16] LABS: Glucose,Whole Blood 151 mg/dL (75-99)
[2021-10-29] MEDS: lisinopriL 5 MG TAB PO SCH (21:27)
[2021-10-29] MEDS: MONTELUKAST 10 MG TAB PO SCH (21:27)
--- NOTE | 2021-10-29 23:32 | P.PN ---
Subjective Progress Note Date: 10/29/21 10/29/21 Patient evaluated today resting in bed. She is still having complaints for right hip pain about 7-8/10 as well as lower back pain 4/10. This is chronic for her but she states it is improving. She is s/p injection to the right sacroiliac joint from pain management services. She is being followed closely by oncology and rad-onc this admission. Patient will be evaluated by PT/OT today to begin discharge planning. She did have a large bowel movement today, denies blood in stool. She reports her last BM prior was mid September. She is on multiple pain medications which contribute to constipation, we did add miralax daily. Due to need for HOB to be elevated 30 degrees for therapeutics as well as to aid in increased mobility, comfort and healing, patient will require a hospital bed on discharge. Patient will also require a walker on discharge in order for her to complete her activities of daily living. Due to chronic and ongoing pain issues and gait dysfunction patient will also require a bedside commode at discharge. She does have live with family who will be able to assist in the use of these devices and participate in the care of this patient. She feels she may be ready for discharge after PT/OT evaluation. Dilaudid was discontinued today to see how patient tolerates pain and activity with her home medications. Labs today show a WBC count of 17.3. Vital signs include temp 97.9, heart rate 78, blood pressure 171/91, she is 95% on room air. ROS Constitutional: Denied any fatigue denied any fever. Cardio vascular: denied any chest pain, palpitations Gastrointestinal: denied any nausea vomiting Pulmonary: Denied any shortness of breath cough Neurologic denied any new focal deficits All inpatient medications were reviewed and appropriate changes in these medications as dictated in the interval history and assessment and plan. PHYSICAL EXAMINATION: GENERAL: The patient is alert and oriented x3, not in any acute distress. Well developed, well nourished. HEENT: Pupils are round and equally reacting to light. EOMI. No scleral icterus. No conjunctival pallor. Normocephalic, atraumatic. No pharyngeal erythema. No thyromegaly. CARDIOVASCULAR: S1 and S2 present. No murmurs, rubs, or gallops. PULMONARY: Chest is clear to auscultation, no wheezing or crackles. ABDOMEN: Soft, nontender, nondistended, normoactive bowel sounds. No palpable organomegaly. MUSCULOSKELETAL: No joint swelling or deformity. EXTREMITIES: No cyanosis, clubbing, Mild peripheral edema NEUROLOGICAL: Gross neurological examination did not reveal any focal deficits. SKIN: No rashes. Assessment and Plan Assessment Right leg pain and gluteal pain with severe gait dysfunction, rule out me tastasis Right upper lobe adenocarcinoma with METS s/p spine radiation therapy Constipation, resolved Status post right sacroiliac joint injection Mediastinal lymphadenopathy Leukocytosis, possible reactive Anemia History of COPD, not in acute exacerbation History of GERD Hypertension Hypothyroidism Remote nicotine dependence GI Prophylaxis DVT Prophylaxis FULL CODE Plan PT/OT consultation Decrease steroids Rad-Onc recommending f/u MRI to evaluate need for ongoing radiation Increase lisinopril, monitor BP AM labs Possible DC home tomorrow Continue all other supportive care Objective - Vital Signs Vital signs: Vital Signs Temp 97.6 F 10/29/21 12:33 Pulse 83 10/29/21 12:33 Resp 20 10/29/21 12:33 BP 182/95 10/29/21 12:33 Pulse Ox 97 10/29/21 12:33 Intake & Output 10/28/21 10/29/21 10/29/21 18:59 06:59 18:59 Intake Total 120 590 Balance 120 590 Intake: Oral 120 590 Other: Voiding Method Toilet Bedside Commode Bedside Commode Incontinent Bedpan Bedpan # Voids 1 3 # Bowel Movements 3 2 - Labs CBC & Chem 7: 10/29/21 06:44 10/29/21 06:44 Labs: Abnormal Lab Results - Last 24 Hours (Table) 10/28/21 10/28/21 10/29/21 Range/Units 17:17 20:14 06:44 WBC 17.3 H (3.8-10.6) k/uL MCV 100.1 H (80.0-100.0) fL MCHC 30.8 L (31.0-37.0) g/dL Neutrophils # 16.2 H (1.3-7.7) k/uL Lymphocytes # 0.3 L (1.0-4.8) k/uL Carbon Dioxide (20.0-27.5) mmol/L BUN/Creatinine Ratio (12.00-20.00) Ratio POC Glucose (mg/dL) 128 H 176 H (75-99) mg/dL Calcium (8.7-10.3) mg/dL 10/29/21 10/29/21 Range/Units 06:44 12:32 WBC (3.8-10.6) k/uL MCV (80.0-100.0) fL MCHC (31.0-37.0) g/dL Neutrophils # (1.3-7.7) k/uL Lymphocytes # (1.0-4.8) k/uL Carbon Dioxide 18.1 L (20.0-27.5) mmol/L BUN/Creatinine Ratio 35.00 H (12.00-20.00) Ratio POC Glucose (mg/dL) 151 H (75-99) mg/dL Calcium 8.4 L (8.7-10.3) mg/dL
[2021-10-30] MEDS: HYDROcodone/APAP 5-325MG 1 EACH TAB PO PRN (02:47)
[2021-10-30] MEDS: KETOROLAC 30 MG/ML 1 ML VIAL IVP PRN (02:48)
[2021-10-30 06:09] LABS: Basophils % (A) 0 %; Eosinophils # (A) 0.6 k/uL (0-0.7); Eosinophils % (A) 3 %; HCT 35.4 % (34.0-46.0); HGB 11.5 gm/dL (11.4-16.0); Lymphocytes # (A) 1.2 k/uL (1.0-4.8); Lymphocytes % (A) 6 %; MCH 30.7 pg (25.0-35.0); MCHC 32.6 g/dL (31.0-37.0); Mean Platelet Volume 7.6; Monocytes # (A) 0.7 k/uL (0-1.0); Monocytes % (A) 3 %; Neutrophils # (A) 17.8 k/uL (1.3-7.7); Neutrophils % (A) 87 %; Platelet Count 166 k/uL (150-450); RBC 3.75 m/uL (3.80-5.40); RDW 14.9 % (11.5-15.5); WBC 20.4 k/uL (3.8-10.6)
[2021-10-30 06:12] LABS: MCV 94.3 fL (80.0-100.0)
[2021-10-30] MEDS: LEVOTHYROXINE 125 MCG TAB PO SCH (06:17)
[2021-10-30 07:11] LABS: Glucose,Whole Blood 95 mg/dL (75-99)
[2021-10-30] MEDS: INSULIN ASPART (NovoLOG) 100 UNIT/ML VIAL SQ SCH ×3 (07:53→17:14)
[2021-10-30] MEDS: PANTOPRAZOLE 40 MG TABLET PO SCH (08:49)
[2021-10-30] MEDS: ASPIRIN 81 MG PO SCH (08:49)
[2021-10-30] MEDS: ASCORBIC ACID 500 MG TAB PO SCH (08:49)
[2021-10-30] MEDS: MORPHINE SULFATE ER 15 MG TABLET PO SCH (08:49)
[2021-10-30] MEDS: LACTULOSE 20 GM/30 ML CUP PO SCH (08:49)
[2021-10-30] MEDS: CHOLECALCIFEROL 25 MCG (1000 IU) TABLET PO SCH (08:49)
[2021-10-30] MEDS: SENNOSIDES-DOCUSATE SODIUM 1 EACH TAB PO SCH (08:49)
[2021-10-30] MEDS: polyethylene glycoL 3350 17 GM POWD.PACK PO SCH (08:49)
[2021-10-30] MEDS: MULTIVITAMINS, THERA 1 EACH TAB PO SCH (08:49)
[2021-10-30] MEDS: MAG HYDROX/AL HYDROX/SIMETH 30 ML, diphenhydrAMINE ELIXIR 75 MG, LIDOCAINE VISCOUS 30 ML PO SCH ×6 (08:50→17:39)
[2021-10-30] MEDS ORDERED: predniSONE 20 MG TAB PO SCH (09:00)
[2021-10-30] MEDS ORDERED: lisinopriL 10 MG TAB PO SCH (09:00)
[2021-10-30 10:01] LABS: African American GFR (CKD) 116.9 (60.0-200.0); Anion Gap 12.7 mmol/L (10.00-18.00); BUN/Creat Ratio 36.8 Ratio (12.00-20.00); Blood Urea Nitrogen 18.4 mg/dL (9.0-27.0); Calcium 8.1 mg/dL (8.7-10.3); Carbon Dioxide 20.3 mmol/L (20.0-27.5); Non-African American GFR(CKD) 100.9 (60.0-200.0); Potassium 3.9 mmol/L (3.5-5.5)
[2021-10-30 11:53] LABS: Glucose,Whole Blood 139 mg/dL (75-99)
[2021-10-30 12:28] VITALS: BP 143/90; PULSE 105; RESP 17; TEMP 97.7
--- NOTE | 2021-10-30 17:00 | P.PN ---
Subjective Progress Note Date: 10/30/21 Principal diagnosis: Constipation, intractable back/hip pain In follow-up today patient reports bowel movements, quite a few, today. Pain is controlled on current analgesics. She had the steroid injection. Tramadol was discontinued today. Pt is on MS contin and norco. She is also on prednisone. Objective - Vital Signs Vital signs: Vital Signs Temp 97.7 F 10/30/21 11:42 Pulse 105 H 10/30/21 11:42 Resp 17 10/30/21 11:42 BP 143/90 10/30/21 11:42 Pulse Ox 100 10/30/21 11:42 Intake & Output 10/29/21 10/30/21 10/30/21 18:59 06:59 18:59 Intake Total 1560 Balance 1560 Weight 56.245 kg Intake: Intake, IV Titration 1560 Amount Sodium Chloride 0.9% 1, 1560 000 ml @ 130 mls/hr IV . Q7H42M [facility] Rx#:[id number] Other: Voiding Method Bedside Commode Bedside Commode Bedpan - Constitutional General appearance: Present: average body habitus, cooperative, no acute distr ess - EENT Eyes: Present: anicteric sclerae, EOMI ENT: Present: hearing grossly normal - Respiratory Details: resp even and unlabored - Cardiovascular Rhythm: regular Heart sounds: normal: S1, S2 Abnormal Heart Sounds: Absent: systolic murmur, diastolic murmur, rub, S3 Gallop, S4 Gallop, click, other - Peripheral edema leg Peripheral Edema: bilateral: None - Gastrointestinal General gastrointestinal: Present: normal bowel sounds, soft - Neurologic Neurologic: Present: CNII-XII intact - Musculoskeletal Musculoskeletal: Present: generalized weakness, strength equal bilaterally - Psychiatric Psychiatric: Present: A&O x's 3, appropriate affect, intact judgment & insight - Labs CBC & Chem 7: 10/30/21 05:27 10/30/21 05:27 Labs: Abnormal Lab Results - Last 24 Hours (Table) 10/29/21 10/29/21 10/30/21 Range/Units 17:33 21:14 05:27 WBC 20.4 H (3.8-10.6) k/uL RBC 3.75 L (3.80-5.40) m/uL Neutrophils # 17.8 H (1.3-7.7) k/uL Creatinine (0.6-1.5) mg/dL BUN/Creatinine Ratio (12.00-20.00) Ratio POC Glucose (mg/dL) 142 H 151 H (75-99) mg/dL Calcium (8.7-10.3) mg/dL 10/30/21 10/30/21 Range/Units 05:27 11:52 WBC (3.8-10.6) k/uL RBC (3.80-5.40) m/uL Neutrophils # (1.3-7.7) k/uL Creatinine 0.5 L (0.6-1.5) mg/dL BUN/Creatinine Ratio 36.80 H (12.00-20.00) Ratio POC Glucose (mg/dL) 139 H (75-99) mg/dL Calcium 8.1 L (8.7-10.3) mg/dL Assessment and Plan (1) Constipation due to opioid therapy Narrative/Plan: Patient has had a BM. She will continue on stool softening agents daily and miralax PRN as long as she is on pain medications. Current Visit: Yes Status: Acute Priority: High Code(s): K59.03 - DRUG INDUCED CONSTIPATION; T40.2X5A - ADVERSE EFFECT OF OTHER OPIOIDS, INITIAL ENCOUNTER SNOMED Code(s): 289199966863980 (2) Intractable pain Narrative/Plan: Patient is status post radiation to the spinal lesion. Patient has received a steroid injection into the hip with improvement in pain. Patient states that Tramadol is working very well for her pain but, that was last given at 2 am. She has been on the MS contin so that has been sent. She will cont her norco PRN for breakthrough pain. Current Visit: Yes Status: Resolved Priority: High Code(s): R52 - PAIN, UNSPECIFIED SNOMED Code(s): 96978269 (3) Metastatic adenocarcinoma Narrative/Plan: Patient has completed radiation for spinal lesion that was causing symptoms. She was on solumedrol, not dexamethasone, 60 Q 6 while inpt. Will have her cont dex 4mg PO TID and plan for a taper Current Visit: Yes Status: Acute Priority: High Code(s): C79.9 - SECONDARY MALIGNANT NEOPLASM OF UNSPECIFIED SITE SNOMED Code(s): 231178612215034 Plan: Doctor attests: I performed a history and physical examination of this patient, developed impression and plan of care. Discussed with dictator. I agree with dictators note, documented as a scribe.
== END 2021-10-30 18:40 | disposition home or self-care (01) | DRG 552 ==
LOC: EC 10:15 → 5NMEDONC 12:50 → OBSVTOIN 10-27 07:54
PROVIDERS: ADMIT Family Medicine; ATTEND Family Medicine
PROC: 3E0U3BZ Introduction of Anesthetic Agent into Joints, Percutaneous Approach (ICD-10-PCS; 2021-10-26)
PROC: 3E0U33Z Introduction of Anti-inflammatory into Joints, Percutaneous Approach (ICD-10-PCS; principal; 2021-10-26 15:15)
DX: M46.1 Sacroiliitis, not elsewhere classified (principal); C79.51 Secondary malignant neoplasm of bone; M84.58XA Pathological fracture in neoplastic disease, other specified site, initial encounter for fracture; C34.11 Malignant neoplasm of upper lobe, right bronchus or lung; D72.810 Lymphocytopenia; D64.9 Anemia, unspecified; M51.36 Other intervertebral disc degeneration, lumbar region; M47.816 Spondylosis without myelopathy or radiculopathy, lumbar region; I10 Essential (primary) hypertension; J44.9 Chronic obstructive pulmonary disease, unspecified; Z20.822 Contact with and (suspected) exposure to COVID-19; K59.03 Drug induced constipation; T40.2X5A Adverse effect of other opioids, initial encounter; E78.5 Hyperlipidemia, unspecified; D72.829 Elevated white blood cell count, unspecified; E03.9 Hypothyroidism, unspecified; K21.9 Gastro-esophageal reflux disease without esophagitis; R26.9 Unspecified abnormalities of gait and mobility; R59.0 Localized enlarged lymph nodes; H91.90 Unspecified hearing loss, unspecified ear; Z79.82 Long term (current) use of aspirin; Z79.890 Hormone replacement therapy; Z79.899 Other long term (current) drug therapy; Z90.710 Acquired absence of both cervix and uterus; Z87.891 Personal history of nicotine dependence; Z87.42 Personal history of other diseases of the female genital tract; Z87.01 Personal history of pneumonia (recurrent); Z92.3 Personal history of irradiation; Z98.890 Other specified postprocedural states; Z88.4 Allergy status to anesthetic agent; Z83.3 Family history of diabetes mellitus; Z82.49 Family history of ischemic heart disease and other diseases of the circulatory system
CPT/HCPCS: 27096; 36415; 72100; 73502; 74177; 80048; 80053; 85025; 87635; 96361; 96374; 99285

== ENCOUNTER 2021-12-27 16:37 | Inpatient (IN) | payer MEDICARE ==
[2021-12-27] MEDS ORDERED: SODIUM CHLORIDE 0.9% 1,000 ML with MVI, ADULT NO.4 WITH VIT K 10 ML, THIAMINE 100 MG, F... IV ONE ×4 (17:23)
--- NOTE | 2021-12-27 17:50 | ED ---
General Adult HPI - General Chief complaint: Recheck/Abnormal Lab/Rx Stated complaint: LOW O2 SAT,Dr Portillo sent pt in Time Seen by Provider: 12/27/21 17:14 Source: patient, family, RN notes reviewed Mode of arrival: wheelchair Limitations: no limitations - History of Present Illness Initial comments: This is a pleasant 66-year-old female with a history of COPD and lung cancer. She was sent over from the [facility] [place] for low oxygen saturation. Received chemotherapy today. She is been getting chemotherapy every 3 weeks since September. She has also getting radiation therapy. Patient states she is not on home oxygen that was told to come here because of low oxygen percentage. Her only actual complaint is feeling a bit fatigued since this morning. She denies any productive cough. No shortness of breath or increased work of breathing. - Related Data Home Medications Medication Instructions Recorded Confirmed Albuterol Sulfate [Proair Hfa] 2 puff INHALATION RT-Q6H PRN 09/25/21 12/27/21 Levothyroxine Sodium [Synthroid] 125 mcg PO DAILY 09/25/21 12/27/21 Montelukast Sodium [Singulair] 10 mg PO HS 09/25/21 12/27/21 Multivitamins, Thera [Multivitamin 1 tab PO DAILY 09/25/21 12/27/21 (formulary)] Cholecalciferol [Vitamin D3 (25 25 mcg PO DAILY 10/25/21 12/27/21 Mcg = 1000 Iu)] Lisinopril [Zestril] 5 mg PO HS 12/27/21 12/27/21 Morphine Sulfate ER [Ms Contin] 15 mg PO BID 12/27/21 12/27/21 Pantoprazole [Protonix] 40 mg PO AC-BRKFST PRN 12/27/21 12/27/21 lisinopriL [Zestril] 10 mg PO DAILY 12/27/21 12/27/21 ondansetron HCL [Zofran] 8 mg PO Q6H PRN 12/27/21 12/27/21 Allergies Allergy/AdvReac Type Severity Reaction Status Date / Time procaine [From Novocain] Allergy Swelling Verified 12/27/21 18:26 throat Review of Systems ROS Statement: Those systems with pertinent positive or pertinent negative responses have been documented in the HPI. ROS Other: All systems not noted in ROS Statement are negative. 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, pt states no BM past 2 weeks since PET/cat scan, hypothyroid, bilateral pedal edema History of Any Multi-Drug Resistant Organisms: None Reported Past Surgical History: Hysterectomy Additional Past Surgical History / Comment(s): 09/27/21 bronchoscopy Past Anesthesia/Blood Transfusion Reactions: No Reported Reaction Past Psychological History: No Psychological Hx Reported Smoking Status: Former smoker Past Alcohol Use History: None Reported Past Drug Use History: None Reported - Past Family History Father History Unknown: Yes Family Medical History: No Reported History Mother Family Medical History: Diabetes Mellitus Additional Family Medical History / Comment(s): Mother had a "bad heart" and at the age of 56yrs General Exam Limitations: no limitations General appearance: alert, in no apparent distress Head exam: Present: atraumatic, normocephalic, normal inspection Eye exam: Present: normal appearance, PERRL, EOMI. Absent: scleral icterus, conjunctival injection, periorbital swelling ENT exam: Present: normal exam, mucous membranes moist Neck exam: Present: normal inspection. Absent: tenderness, meningismus, lymphadenopathy Respiratory exam: Present: rales. Absent: respiratory distress, wheezes, rhonchi, stridor Cardiovascular Exam: Present: regular rate, normal rhythm, normal heart sounds. Absent: systolic murmur, diastolic murmur, rubs, gallop, clicks GI/Abdominal exam: Present: soft, normal bowel sounds. Absent: distended, tenderness, guarding, rebound, rigid Extremities exam: Present: normal inspection, full ROM, normal capillary refill. Absent: tenderness, pedal edema, joint swelling, calf tenderness Back exam: Present: normal inspection Neurological exam: Present: alert, oriented X3, CN II-XII intact Psychiatric exam: Present: normal affect, normal mood Skin exam: Present: warm, dry, intact, normal color. Absent: rash Course Vital Signs 12/27/21 12/27/21 12/27/21 16:42 17:48 19:00 Temperature 98.9 F Pulse Rate 107 H 100 104 H Respiratory 22 18 18 Rate Blood Pressure 105/64 123/84 122/78 O2 Sat by Pulse 91 L 98 95 Oximetry - Reevaluation(s) Reevaluation #1: 12/27/21 18:24 Medical record is reviewed Symptoms unchanged, patient's potassium is 2.6. Replacement ordered. CT angiogram chest ordered to rule out pulmonary embolism. Patient is informed of results and questions answered Patient in no distress Reevaluation #2: 12/27/21 21:45 Medical record is reviewed Symptoms are improved here in the emergency department Patient is informed of results and questions answered Patient in no distress Reevaluation #3: 12/27/21 21:49 Medical record is reviewed Repeat potassium was 2.6. Patient is informed of results and questions answered Patient in no distress EKG Findings - EKG Comments: EKG Findings:: EKG reveals sinus tachycardia with a rate of 108. Normal intervals. Possible left atrial enlargement, possible right ventricular conduction delay with RSR pattern in V1 and V2. Specific T wave abnormalities, no comparison study Medical Decision Making - Medical Decision Making Vision with history of lung cancer, mild tachycardia, low oxygen saturation at the [facility] [place]. No increased work of breathing or shortness breath. Certainly given the patient's history pulmonary embolism is within the differential. Does not appear to be consistent with cardiac ischemic pain. She has no wheezing. Does not appear to be consistent with COPD exacerbation. Case discussed in detail with the hospitalist physician, Dr. Alvares. Calcitonin added. I believe the patient's CT findings are consistent with worsening lung mass. Patient also has what appears to worsening metastases to the spinal region. We will consult oncology and pulmonary for the patient. Discharge planning and social worker assistant to be consulted as well. Antibiotics held as I believe this is related to the patient's chronic carcinogenic lung disease. There was no evidence of pulmonary embolism. - Lab Data Result diagrams: 12/27/21 17:45 12/27/21 20:33 Lab Results 12/27/21 12/27/21 12/27/21 Range/Units 17:45 17:45 17:45 WBC 15.8 H (3.8-10.6) k/uL RBC 3.41 L (3.80-5.40) m/uL Hgb 8.9 L D (11.4-16.0) gm/dL Hct 30.2 L (34.0-46.0) % MCV 88.6 D (80.0-100.0) fL MCH 26.2 (25.0-35.0) pg MCHC 29.6 L (31.0-37.0) g/dL RDW 16.7 H (11.5-15.5) % Plt Count 735 H D (150-450) k/uL MPV 6.7 Neutrophils % 80 % Lymphocytes % 11 % Monocytes % 5 % Eosinophils % 2 % Basophils % 0 % Neutrophils # 12.7 H (1.3-7.7) k/uL Lymphocytes # 1.7 (1.0-4.8) k/uL Monocytes # 0.8 (0-1.0) k/uL Eosinophils # 0.3 (0-0.7) k/uL Basophils # 0.0 (0-0.2) k/uL Hypochromasia Marked Poikilocytosis Moderate Anisocytosis Slight PT 11.1 (9.0-12.0) sec INR 1.0 (<1.2) APTT 19.4 L (22.0-30.0) sec Sodium 139 (137-145) mmol/L Potassium 2.6 L* (3.5-5.1) mmol/L Chloride 104 (98-107) mmol/L Carbon Dioxide 29 (22-30) mmol/L Anion Gap 6 mmol/L BUN 18 H (7-17) mg/dL Creatinine 0.75 (0.52-1.04) mg/dL Est GFR (CKD-EPI)AfAm >90 (>60 ml/min/1.73 sqM) Est GFR (CKD-EPI)NonAf 83 (>60 ml/min/1.73 sqM) Glucose 104 H (74-99) mg/dL Calcium 11.0 H (8.4-10.2) mg/dL Magnesium 2.4 H (1.6-2.3) mg/dL Total Bilirubin 0.5 (0.2-1.3) mg/dL AST 17 (14-36) U/L ALT 9 (4-34) U/L Alkaline Phosphatase 123 (38-126) U/L Troponin I (0.000-0.034) ng/mL NT-Pro-B Natriuret Pep pg/mL Total Protein 6.6 (6.3-8.2) g/dL Albumin 2.5 L (3.5-5.0) g/dL Lipase 16 L (23-300) U/L Urine Color Urine Appearance (Clear) Urine pH (5.0-8.0) Ur Specific [employer] (1.001-1.035) Urine Protein (Negative) Urine Glucose (UA) (Negative) Urine Ketones (Negative) Urine Blood (Negative) Urine Nitrite (Negative) Urine Bilirubin (Negative) Urine Urobilinogen (<2.0) mg/dL Ur Leukocyte Esterase (Negative) Urine RBC (0-5) /hpf Urine WBC (0-5) /hpf Ur Squamous Epith Cells (0-4) /hpf Amorphous Sediment (None) /hpf Urine Bacteria (None) /hpf Coronavirus (PCR) (Not Detectd) 12/27/21 12/27/21 12/27/21 Range/Units 17:45 17:45 17:45 WBC (3.8-10.6) k/uL RBC (3.80-5.40) m/uL Hgb (11.4-16.0) gm/dL Hct (34.0-46.0) % MCV (80.0-100.0) fL MCH (25.0-35.0) pg MCHC (31.0-37.0) g/dL RDW (11.5-15.5) % Plt Count (150-450) k/uL MPV Neutrophils % % Lymphocytes % % Monocytes % % Eosinophils % % Basophils % % Neutrophils # (1.3-7.7) k/uL Lymphocytes # (1.0-4.8) k/uL Monocytes # (0-1.0) k/uL Eosinophils # (0-0.7) k/uL Basophils # (0-0.2) k/uL Hypochromasia Poikilocytosis Anisocytosis PT (9.0-12.0) sec INR (<1.2) APTT (22.0-30.0) sec Sodium (137-145) mmol/L Potassium (3.5-5.1) mmol/L Chloride (98-107) mmol/L Carbon Dioxide (22-30) mmol/L Anion Gap mmol/L BUN (7-17) mg/dL Creatinine (0.52-1.04) mg/dL Est GFR (CKD-EPI)AfAm (>60 ml/min/1.73 sqM) Est GFR (CKD-EPI)NonAf (>60 ml/min/1.73 sqM) Glucose (74-99) mg/dL Calcium (8.4-10.2) mg/dL Magnesium (1.6-2.3) mg/dL Total Bilirubin (0.2-1.3) mg/dL AST (14-36) U/L ALT (4-34) U/L Alkaline Phosphatase (38-126) U/L Troponin I <0.012 (0.000-0.034) ng/mL NT-Pro-B Natriuret Pep 3790 pg/mL Total Protein (6.3-8.2) g/dL Albumin (3.5-5.0) g/dL Lipase (23-300) U/L Urine Color Urine Appearance (Clear) Urine pH (5.0-8.0) Ur Specific [employer] (1.001-1.035) Urine Protein (Negative) Urine Glucose (UA) (Negative) Urine Ketones (Negative) Urine Blood (Negative) Urine Nitrite (Negative) Urine Bilirubin (Negative) Urine Urobilinogen (<2.0) mg/dL Ur Leukocyte Esterase (Negative) Urine RBC (0-5) /hpf Urine WBC (0-5) /hpf Ur Squamous Epith Cells (0-4) /hpf Amorphous Sediment (None) /hpf Urine Bacteria (None) /hpf Coronavirus (PCR) Not Detected (Not Detectd) 12/27/21 12/27/21 Range/Units 19:00 20:33 WBC (3.8-10.6) k/uL RBC (3.80-5.40) m/uL Hgb (11.4-16.0) gm/dL Hct (34.0-46.0) % MCV (80.0-100.0) fL MCH (25.0-35.0) pg MCHC (31.0-37.0) g/dL RDW (11.5-15.5) % Plt Count (150-450) k/uL MPV Neutrophils % % Lymphocytes % % Monocytes % % Eosinophils % % Basophils % % Neutrophils # (1.3-7.7) k/uL Lymphocytes # (1.0-4.8) k/uL Monocytes # (0-1.0) k/uL Eosinophils # (0-0.7) k/uL Basophils # (0-0.2) k/uL Hypochromasia Poikilocytosis Anisocytosis PT (9.0-12.0) sec INR (<1.2) APTT (22.0-30.0) sec Sodium (137-145) mmol/L Potassium 2.6 L* (3.5-5.1) mmol/L Chloride (98-107) mmol/L Carbon Dioxide (22-30) mmol/L Anion Gap mmol/L BUN (7-17) mg/dL Creatinine (0.52-1.04) mg/dL Est GFR (CKD-EPI)AfAm (>60 ml/min/1.73 sqM) Est GFR (CKD-EPI)NonAf (>60 ml/min/1.73 sqM) Glucose (74-99) mg/dL Calcium (8.4-10.2) mg/dL Magnesium (1.6-2.3) mg/dL Total Bilirubin (0.2-1.3) mg/dL AST (14-36) U/L ALT (4-34) U/L Alkaline Phosphatase (38-126) U/L Troponin I (0.000-0.034) ng/mL NT-Pro-B Natriuret Pep pg/mL Total Protein (6.3-8.2) g/dL Albumin (3.5-5.0) g/dL Lipase (23-300) U/L Urine Color Yellow Urine Appearance Cloudy H (Clear) Urine pH 6.0 (5.0-8.0) Ur Specific [employer] 1.015 (1.001-1.035) Urine Protein 1+ H (Negative) Urine Glucose (UA) Negative (Negative) Urine Ketones Negative (Negative) Urine Blood Trace H (Negative) Urine Nitrite Negative (Negative) Urine Bilirubin Negative (Negative) Urine Urobilinogen <2.0 (<2.0) mg/dL Ur Leukocyte Esterase Trace H (Negative) Urine RBC 3 (0-5) /hpf Urine WBC 17 H (0-5) /hpf Ur Squamous Epith Cells 20 H (0-4) /hpf Amorphous Sediment Rare H (None) /hpf Urine Bacteria Occasional H (None) /hpf Coronavirus (PCR) (Not Detectd) Disposition Clinical Impression: Hypoxemia, Hypokalemia, General weakness, History of lung cancer Narrative: Patient has history of metastatic lung cancer Disposition: ADMITTED IP TO THIS HOSP Condition: Fair Referrals: Bruno Ramírez MD [Primary Care Provider] - 1-2 days Decision to Admit Reason: Admit from EC Decision Time: 21:49
[2021-12-27 18:04] LABS: Anisocytosis Slight; Basophils % (A) 0 %; Eosinophils # (A) 0.3 k/uL (0-0.7); Eosinophils % (A) 2 %; HCT 30.2 % (34.0-46.0); HGB 8.9 gm/dL (11.4-16.0); Hypochromasia Marked; Lymphocytes # (A) 1.7 k/uL (1.0-4.8); Lymphocytes % (A) 11 %; MCH 26.2 pg (25.0-35.0); MCHC 29.6 g/dL (31.0-37.0); Mean Platelet Volume 6.7; Monocytes # (A) 0.8 k/uL (0-1.0); Monocytes % (A) 5 %; Neutrophils # (A) 12.7 k/uL (1.3-7.7); Neutrophils % (A) 80 %; Poikilocytosis Moderate; RBC 3.41 m/uL (3.80-5.40); RDW 16.7 % (11.5-15.5); WBC 15.8 k/uL (3.8-10.6)
[2021-12-27 18:05] LABS: MCV 88.6 fL (80.0-100.0); Platelet Count 735 k/uL (150-450)
[2021-12-27 18:13] LABS: Prothrombin Time 11.1 sec (9.0-12.0)
[2021-12-27 18:14] LABS: ALT 9 U/L (4-34); AST 17 U/L (14-36); African American GFR (CKD) >90 (>60 ml/min/1.73 sqM); Albumin 2.5 g/dL (3.5-5.0); Alkaline Phosphatase 123 U/L (38-126); Anion Gap 6 mmol/L; Blood Urea Nitrogen 18 mg/dL (7-17); Carbon Dioxide 29 mmol/L (22-30); Chloride 104 mmol/L (98-107); Glucose 104 mg/dL (74-99); Lipase 16 U/L (23-300); Magnesium 2.4 mg/dL (1.6-2.3); Non-African American GFR(CKD) 83 (>60 ml/min/1.73 sqM); Sodium 139 mmol/L (137-145); Total Bilirubin 0.5 mg/dL (0.2-1.3); Total Protein 6.6 g/dL (6.3-8.2)
[2021-12-27 18:21] LABS: Potassium 2.6 mmol/L (3.5-5.1)
[2021-12-27 18:23] LABS: Partial Thromboplastin Time 19.4 sec (22.0-30.0)
[2021-12-27] MEDS ORDERED: Potassium Replacement Protocol 1 EACH MISC MISCELLANE PRN (18:23)
--- NOTE | 2021-12-27 18:59 | XR ---
EXAMINATION TYPE: XR chest 1V portable DATE OF EXAM: 12/27/2021 6:04 PM COMPARISON: Chest radiograph 09/27/2021, CT 09/27/2021. TECHNIQUE: XR chest 1V portable Frontal view of the chest. CLINICAL INDICATION:Female, 66 years old with history of abdominal pain; FINDINGS: Lungs/Pleura: Right upper lobe consolidation which is increased from prior on 09/27/2021. No evidence of pneumothorax or pleural effusion. COPD changes with apical lucency of the left upper lung and fla ttening of the diaphragm. Pulmonary vascularity: Unremarkable. Heart/mediastinum: Cardiomediastinal silhouette is unremarkable. Musculoskeletal: No acute osseous pathology. IMPRESSION: 1. Right upper lobe consolidation likely postobstructive atelectasis from known right upper lobe mas s and/or enlargement of the right upper lobe mass. 2. COPD changes
[2021-12-27] MEDS: POTASSIUM CHLORIDE ER 20 MEQ TAB.ER PO SCH (19:04)
[2021-12-27] MEDS: POTASSIUM CHLORIDE 10 MEQ in WATER FOR INJECTION 1 100ML.BAG IVPB SCH ×3 (19:04→23:24)
[2021-12-27 19:14] LABS: Amorphous Sediment,Urine Rare /hpf; Appearance,Urine Cloudy (Clear); Bacteria,Urine Occasional /hpf; Bilirubin,Urine Negative (Negative); Blood,Urine Trace (Negative); Color,Urine Yellow; Glucose,Urine (UA) Negative (Negative); Ketones,Urine Negative (Negative); Leukocyte Esterase,Urine Trace (Negative); Nitrite,Urine Negative (Negative); Protein,Urine 1+ (Negative); RBC,Urine 3 /hpf (0-5); Specific Gravity,Urine 1.015 (1.001-1.035); Squamous Epithelial Cell,Urine 20 /hpf (0-4); Urobilinogen,Urine <2.0 mg/dL (<2.0); WBC,Urine 17 /hpf (0-5)
--- NOTE | 2021-12-27 21:02 | CT ---
EXAMINATION TYPE: CT angio chest CT DLP: 223.8 mGycm, Automated exposure control for dose reduction was used. DATE OF EXAM: 12/27/2021 8:13 PM COMPARISON: Chest radiograph from same day. Multiple CTs of the chest with most recent on 09/18/2021 . CLINICAL INDICATION:Female, 66 years old with history of Shortness of breath; SOB, hx lung ca TECHNIQUE/CONTRAST: CTA scan of the thorax is performed with IV Contrast, patient injected with 100 mL of Isovue 370, pul monary embolism protocol. MIP images are created and reviewed. FINDINGS: Pulmonary Artery: There is no evidence for a filling defect within the pulmonary vasculature to sugge st acute pulmonary embolism. The pulmonary artery is of normal size. Lungs/Pleura: Right upper lobe cavitary lesion with air-fluid level present measuring 10.3 x 10.8 x 8 .2 cm. Right lower lobe pulmonary nodule is increased in size now measuring 7 mm previously 4 mm. Lef t lower lobe 3 mm pulmonary nodules significantly different in size. There is centrilobular emphysema changes most proximal apices. Airway: She of the right upper lobe airways become structured just after the renal sinus simple inclu susan series 501 image 54 Heart: Within normal limits for size.. Vasculature: No evidence of aortic aneurysm. Mediastinum: No gross evidence of adenopathy. Musculoskeletal: Pathologic fractures seen on prior involving L1 vertebral body with increased height loss on today's exam as well as retropulsion into the spinal canal with 7 mm of retropulsion. Additi onal lucent area within the T7 vertebral body with mild compression deformity and 25% height loss is present. Additional lucent area within the T10 vertebral body suspicious for metastatic disease as we ll. Soft Tissues: Unremarkable. Lower neck: No significant findings. Upper Abdomen: Left renal cysts. Right indeterminate renal cyst measuring 31 Hounsfield units. IMPRESSION: 1. No evidence of pulmonary embolism. 2. Right upper lobe cavitary lesion with air-fluid level is new from prior where it had a solid appea sanju. There is surrounding consolidation and likely obstructive atelectasis of the right upper lobe. There is obstruction of the right upper lobe airway. 3. Enlarging right lower lobe pulmonary nodule on with progression of compression deformities with ly tic lesions within T7, T10 and L1 concerning for worsening metastatic disease. 4. Airspace opacities within the right middle lobe may represent acute infectious/inflammatory proces s. 5. L1 vertebral body pathologic compression fracture with 7 mm retropulsion this has has progressed f rom prior imaging with continued significant height loss on today's exam. Additionally there is new compression deformity of the T7 vertebral body with 25% height loss without retropulsion. There is al so a suspicious lucent area within the T11 vertebral body suspicious for metastatic disease. 6. Indeterminate right renal lesion. Stable in size from prior. 7. Moderate emphysema changes.
[2021-12-27] MEDS ORDERED: MAGNESIUM HYDROXIDE 2,400 MG/10 ML CUP PO PRN (21:51)
[2021-12-27] MEDS ORDERED: LORazepam 2 MG/ML INJ IV PRN (21:51)
[2021-12-27] MEDS ORDERED: MAG HYDROX/AL HYDROX/SIMETH 30 ML CUP PO PRN (21:51)
[2021-12-27] MEDS ORDERED: NALOXONE 0.4 MG/ML 1 ML VIAL IV PRN (21:51)
[2021-12-27] MEDS ORDERED: ACETAMINOPHEN TAB 325 MG TAB PO PRN (21:51)
[2021-12-27] MEDS ORDERED: ONDANSETRON 4 MG/2 ML VIAL IVP PRN (21:51)
[2021-12-27] MEDS ORDERED: ALBUTEROL NEBULIZED 2.5 MG/3 ML INHALATION PRN (21:55)
[2021-12-27] MEDS ORDERED: IPRATROPIUM-ALBUTEROL 3 ML NEB INHALATION PRN (21:55)
[2021-12-27] MEDS ORDERED: SODIUM CHLORIDE 0.9% 1,000 ML IV SCH (22:00)
[2021-12-28] MEDS: POTASSIUM CHLORIDE 10 MEQ in WATER FOR INJECTION 1 100ML.BAG IVPB SCH ×4 (01:09→03:46)
[2021-12-28] MEDS: POTASSIUM CHLORIDE ER 20 MEQ TAB.ER PO SCH ×3 (02:38→09:51)
[2021-12-28] MEDS ORDERED: POTASSIUM CHLORIDE ER 20 MEQ TAB.ER PO STA ×2 (03:15→12:24)
--- NOTE | 2021-12-28 03:16 | P.HPIM ---
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 The patient reports that she is currently undergoing chemotherapy for her malignancy and that she was advised to go to the ED since her SpO2 was diminished. The patient reports that she does not use any oxygen at home. She does report losing 20-30 pounds of weight since the diagnosis of her malignancy in August of last year. She denied any additional complaints. She denied chest discomfort, shortness of breath, fever, chills, cough, nausea, vomiting, abdominal pain, diarrhea. Upon presentation, the patient had an SpO2 of 91% on room air with laboratory evaluation showing leukocytosis of 15.8, hemoglobin 8.9, platelets 735, potassium 2.6. Chest CTA revealed a right upper lobe cavitary lesion with air fluid level new from prior with obstruction of the right upper lobe along with enlarging right lower lobe pulmonary nodule as well as a pathologic compression fracture of the L1 v ertebrae with progression. Review of systems: Pertinent positives and negatives as discussed in HPI, a complete review of systems was performed and all other systems are negative. Physical examination: General: non toxic, no distress, appears older than stated age, normal weight Derm: no unusual rashes/lesions no unusual ecchymoses, warm, dry Head: atraumatic, normocephalic, symmetric Eyes: EOMI, no lid lag, anicteric sclera, pupils equal round reactive to light ENT: Nose and ears atraumatic, no thrush, no pharyngeal erythema Neck: No thyromegaly, no cervical lymphadenopathy, trachea midline, supple Mouth: no lip lesion, mucus membranes moist Cardiovascular: S1S2 reg, no murmur, positive posterior tibial pulse bilateral, no edema, capillary refill less than 2 seconds Lungs: Scattered rhonchi without rales, no accessory muscle use Abdominal: soft, nontender to palpation, no guarding, no appreciable organomegaly, normal bowel sounds Ext: no gross muscle atrophy, muscle strength 5 out of 5 in all 4 extremities grossly, no contractures, Neuro: CN II-XI grossly intact, light touch intact all 4 extremities, finger to nose within normal limits, Psych: Alert, oriented, appropriate affect Assessment/plan Shortness of breath, suspected secondary to progression of lung malignancy in setting of emphysema -Patient will likely need chronic oxygen support -Pulmonary consulted -DuoNeb's Hypokalemia -Replace and monitor Leukocytosis, at baseline -Likely secondary to ongoing malignancy -Patient denying new cough, fever, chest pain DVT prophylaxis -Lovenox The patient is admitted with an anticipated less than 2 midnight stay for evaluation of SOB. 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, pt states no BM past 2 weeks since PET/cat scan, hypothyroid, bilateral pedal edema History of Any Multi-Drug Resistant Organisms: None Reported Past Surgical History: Hysterectomy Additional Past Surgical History / Comment(s): 09/27/21 bronchoscopy Past Anesthesia/Blood Transfusion Reactions: No Reported Reaction Past Psychological History: No Psychological Hx Reported Smoking Status: Former smoker Past Alcohol Use History: None Reported Past Drug Use History: None Reported - Past Family History Father History Unknown: Yes Family Medical History: No Reported History Mother Family Medical History: Diabetes Mellitus Additional Family Medical History / Comment(s): Mother had a "bad heart" and at the age of 56yrs Medications and Allergies Home Medications Medication Instructions Recorded Confirmed Type Albuterol Sulfate [Proair Hfa] 2 puff INHALATION RT-Q6H PRN 09/25/21 12/27/21 History Levothyroxine Sodium [Synthroid] 125 mcg PO DAILY 09/25/21 12/27/21 History Montelukast Sodium [Singulair] 10 mg PO HS 09/25/21 12/27/21 History Multivitamins, Thera [Multivitamin 1 tab PO DAILY 09/25/21 12/27/21 History (formulary)] Cholecalciferol [Vitamin D3 (25 25 mcg PO DAILY 10/25/21 12/27/21 History Mcg = 1000 Iu)] Lisinopril [Zestril] 5 mg PO HS 12/27/21 12/27/21 History Morphine Sulfate ER [Ms Contin] 15 mg PO BID 12/27/21 12/27/21 History Pantoprazole [Protonix] 40 mg PO AC-BRKFST PRN 12/27/21 12/27/21 History lisinopriL [Zestril] 10 mg PO DAILY 12/27/21 12/27/21 History ondansetron HCL [Zofran] 8 mg PO Q6H PRN 12/27/21 12/27/21 History Allergies Allergy/AdvReac Type Severity Reaction Status Date / Time procaine [From Novocain] Allergy Swelling Verified 12/27/21 18:26 throat Physical Exam Vitals: Vital Signs Temp Pulse Pulse Resp BP BP Pulse Ox 12/28/21 02:00 97.5 F L 95 18 133/84 94 L 12/28/21 00:00 79 20 143/92 95 12/27/21 22:00 70 18 134/89 94 L 12/27/21 20:00 67 20 124/90 95 12/27/21 19:00 104 H 18 122/78 95 12/27/21 17:48 100 18 123/84 98 12/27/21 16:42 98.9 F 107 H 22 105/64 91 L Intake and Output 12/27/21 12/27/21 12/28/21 14:59 22:59 06:59 Other: Weight 52.617 kg Results CBC & Chem 7: 12/27/21 17:45 12/27/21 20:33 Labs: Abnormal Lab Results - Last 24 Hours (Table) 12/27/21 12/27/21 12/27/21 Range/Units 17:45 17:45 17:45 WBC 15.8 H (3.8-10.6) k/uL RBC 3.41 L (3.80-5.40) m/uL Hgb 8.9 L D (11.4-16.0) gm/dL Hct 30.2 L (34.0-46.0) % MCHC 29.6 L (31.0-37.0) g/dL RDW 16.7 H (11.5-15.5) % Plt Count 735 H D (150-450) k/uL Neutrophils # 12.7 H (1.3-7.7) k/uL APTT 19.4 L (22.0-30.0) sec Potassium 2.6 L* (3.5-5.1) mmol/L BUN 18 H (7-17) mg/dL Glucose 104 H (74-99) mg/dL Calcium 11.0 H (8.4-10.2) mg/dL Magnesium 2.4 H (1.6-2.3) mg/dL Albumin 2.5 L (3.5-5.0) g/dL Lipase 16 L (23-300) U/L Urine Appearance (Clear) Urine Protein (Negative) Urine Blood (Negative) Ur Leukocyte Esterase (Negative) Urine WBC (0-5) /hpf Ur Squamous Epith Cells (0-4) /hpf Amorphous Sediment (None) /hpf Urine Bacteria (None) /hpf 12/27/21 12/27/21 Range/Units 19:00 20:33 WBC (3.8-10.6) k/uL RBC (3.80-5.40) m/uL Hgb (11.4-16.0) gm/dL Hct (34.0-46.0) % MCHC (31.0-37.0) g/dL RDW (11.5-15.5) % Plt Count (150-450) k/uL Neutrophils # (1.3-7.7) k/uL APTT (22.0-30.0) sec Potassium 2.6 L* (3.5-5.1) mmol/L BUN (7-17) mg/dL Glucose (74-99) mg/dL Calcium (8.4-10.2) mg/dL Magnesium (1.6-2.3) mg/dL Albumin (3.5-5.0) g/dL Lipase (23-300) U/L Urine Appearance Cloudy H (Clear) Urine Protein 1+ H (Negative) Urine Blood Trace H (Negative) Ur Leukocyte Esterase Trace H (Negative) Urine WBC 17 H (0-5) /hpf Ur Squamous Epith Cells 20 H (0-4) /hpf Amorphous Sediment Rare H (None) /hpf Urine Bacteria Occasional H (None) /hpf Microbiology - Last 24 Hours (Table) 12/27/21 19:00 Urine Culture - Preliminary Urine,Voided
[2021-12-28 06:02] LABS: Anisocytosis Slight; Basophils # (A) 0.1 k/uL (0-0.2); Basophils % (A) 1 %; Eosinophils # (A) 0.4 k/uL (0-0.7); Eosinophils % (A) 3 %; HCT 30.3 % (34.0-46.0); Hypochromasia Marked; Lymphocytes # (A) 1.9 k/uL (1.0-4.8); Lymphocytes % (A) 14 %; MCH 26.8 pg (25.0-35.0); MCHC 29.6 g/dL (31.0-37.0); MCV 90.7 fL (80.0-100.0); Mean Platelet Volume 6.9; Monocytes # (A) 0.7 k/uL (0-1.0); Monocytes % (A) 5 %; Neutrophils # (A) 10.3 k/uL (1.3-7.7); Neutrophils % (A) 75 %; Platelet Count 655 k/uL (150-450); Poikilocytosis Moderate; RBC 3.34 m/uL (3.80-5.40); RDW 16.5 % (11.5-15.5); WBC 13.7 k/uL (3.8-10.6)
[2021-12-28 06:16] LABS: ALT 9 U/L (4-34); AST 16 U/L (14-36); African American GFR (CKD) >90 (>60 ml/min/1.73 sqM); Albumin 2.3 g/dL (3.5-5.0); Alkaline Phosphatase 115 U/L (38-126); Anion Gap 4 mmol/L; Blood Urea Nitrogen 15 mg/dL (7-17); Calcium 10.4 mg/dL (8.4-10.2); Carbon Dioxide 25 mmol/L (22-30); Chloride 109 mmol/L (98-107); Glucose 107 mg/dL (74-99); Non-African American GFR(CKD) 85 (>60 ml/min/1.73 sqM); Potassium 3.4 mmol/L (3.5-5.1); Sodium 138 mmol/L (137-145); Total Bilirubin 0.5 mg/dL (0.2-1.3); Total Protein 6.2 g/dL (6.3-8.2)
[2021-12-28] MEDS: IPRATROPIUM-ALBUTEROL 3 ML NEB INHALATION SCH ×4 (07:22→19:44)
[2021-12-28] MEDS: ENOXAPARIN 40 MG/0.4 ML SYRINGE SQ SCH (08:20)
[2021-12-28] MEDS: HYDROcodone/APAP 5-325MG 1 EACH TAB PO PRN ×2 (10:02→20:34)
[2021-12-28 15:56] LABS: T4, Free (Free Thyroxine) 2.33 ng/dL (0.78-2.19)
[2021-12-28] MEDS: 0.9% NACL WITH KCL 20 MEQ/L 1,000 ML IV SCH (16:28)
--- NOTE | 2021-12-28 17:14 | P.CNPUL ---
History of Present Illness Consult date: 12/28/21 Requesting physician: Jer Alvares Reason for consult: hypoxemia, abnormal CXR/CT Chief complaint: generalized weakness History of present illness: This is a pleasant 66-year-old female patient with a known history of chronic and ongoing tobacco dependence of 50 years, chronic obstructive pulmonary disease with an FEV1 value 63% of predicted. she was initially seen in September 2021 for right upper lobe mass. 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 he was also found to have metastatic lytic lesions and [id number] lesion. She has been receiving chemotherapy and radiation therapy. She was receiving chemotherapy yesterday when they found her oxygen saturations to be low and she was referred here for the same. Chest x-ray continues to show a right upper lobe consolidation likely postobstructive atelectasis from known right upper lobe mass and/or enlargement of the right upper lobe mass. There is evidence of COPD. CT angiogram ruled out pulmonary embolism. There is again evidence of the right upper lobe cavitary lesion with air fluid level which is new compared to previous solid appearance. There is surrounding consolidation and likely obstructive atelectasis of the right upper lobe. There is obstruction of the right upper lobe airway. There is an enlarging right lower lobe pulmonary nodule with progression of compression deformities with lytic lesions T7, T10 and L1 concerning for worsening metastatic disease. Moderate emphysema changes. white count 13.7. Hemoglobin 9.0. Platelets 655. Sodium 138. Potassium 3.4. Creatinine 0.74. Glucose 107. Pro-calcitonin 0.17. TSH 0.37. Free T4 2 0.33. Cortisol 28. Narayan virus by PCR not detected. Urine culture pending. She's been initiated on DuoNeb inhalations, Lovenox for DVT prophylaxis. She is seen today in consultation on the oncology unit. She is currently sitting up in bed. Awake and alert. She does have a loose nonproductive cough. She is dyspneic with exertion. Her appetite is poor. She is having complaints of back pain. Review of Systems REVIEW OF SYSTEMS: CONSTITUTIONAL: Generalized weakness. Denies any recent significant weight loss or weight gain. EYES: Denies change in vision. EARS, NOSE, MOUTH, THROAT: Denies headaches, denies sore throat. CARDIOVASCULAR: Denies chest pain, palpitations or syncopal episodes. RESPIRATORY: Positive for shortness of breath, cough, congestion no hemoptysis. GASTROINTESTINAL: Denies change in appetite, denies abdominal pain GENITOURINARY: Denies hematuria, denies infections. MUSKULOSKELETAL: Positive for back pain, denies swelling. INTEGUMENTARY: Denies rash, denies eczema. NEUROLOGICAL: Denies recent memory loss, no recent seizure activity. PSYCHIATRIC: Denies anxiety, denies depression. HEMATOLOGIC/LYMPHATIC: Denies anemia, denies enlarged lymph nodes. 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, pt states no BM past 2 weeks since PET/cat sc an, hypothyroid, bilateral pedal edema History of Any Multi-Drug Resistant Organisms: None Reported Past Surgical History: Hysterectomy Additional Past Surgical History / Comment(s): 09/27/21 bronchoscopy Past Anesthesia/Blood Transfusion Reactions: No Reported Reaction Past Psychological History: No Psychological Hx Reported Smoking Status: Former smoker Past Alcohol Use History: None Reported Past Drug Use History: None Reported - Past Family History Father History Unknown: Yes Family Medical History: No Reported History Mother Family Medical History: Diabetes Mellitus Additional Family Medical History / Comment(s): Mother had a "bad heart" and at the age of 56yrs Medications and Allergies Home Medications Medication Instructions Recorded Confirmed Type Albuterol Sulfate [Proair Hfa] 2 puff INHALATION RT-Q6H PRN 09/25/21 12/27/21 History Levothyroxine Sodium [Synthroid] 125 mcg PO DAILY 09/25/21 12/27/21 History Montelukast Sodium [Singulair] 10 mg PO HS 09/25/21 12/27/21 History Multivitamins, Thera [Multivitamin 1 tab PO DAILY 09/25/21 12/27/21 History (formulary)] Cholecalciferol [Vitamin D3 (25 25 mcg PO DAILY 10/25/21 12/27/21 History Mcg = 1000 Iu)] Lisinopril [Zestril] 5 mg PO HS 12/27/21 12/27/21 History Morphine Sulfate ER [Ms Contin] 15 mg PO BID 12/27/21 12/27/21 History Pantoprazole [Protonix] 40 mg PO AC-BRKFST PRN 12/27/21 12/27/21 History lisinopriL [Zestril] 10 mg PO DAILY 12/27/21 12/27/21 History ondansetron HCL [Zofran] 8 mg PO Q6H PRN 12/27/21 12/27/21 History Allergies Allergy/AdvReac Type Severity Reaction Status Date / Time procaine [From Novocain] Allergy Swelling Verified 12/27/21 18:26 throat Physical Exam Vitals: Vital Signs Temp Pulse Pulse Pulse Pulse Pulse Pulse 12/28/21 15:56 84 12/28/21 15:47 12/28/21 15:44 83 12/28/21 12:25 97 90 12/28/21 11:56 78 85 78 84 12/28/21 11:27 70 12/28/21 11:25 98.0 F 70 12/28/21 11:18 67 12/28/21 07:23 12/28/21 04:26 97.6 F 85 12/28/21 02:00 97.5 F L 95 12/28/21 00:00 79 12/27/21 22:00 70 12/27/21 20:00 67 12/27/21 19:00 104 H 12/27/21 17:48 100 Resp BP BP Pulse Ox Pulse Ox Pulse Ox Pulse Ox 12/28/21 15:56 12/28/21 15:47 93 L 12/28/21 15:44 12/28/21 12:25 12/28/21 11:56 100 98 97 12/28/21 11:27 12/28/21 11:25 16 115/77 98 12/28/21 11:18 12/28/21 07:23 99 12/28/21 04:26 18 128/83 97 12/28/21 02:00 18 133/84 94 L 12/28/21 00:00 20 143/92 95 12/27/21 22:00 18 134/89 94 L 12/27/21 20:00 20 124/90 95 12/27/21 19:00 18 122/78 95 12/27/21 17:48 18 123/84 98 Pulse Ox 12/28/21 15:56 12/28/21 15:47 12/28/21 15:44 12/28/21 12:25 12/28/21 11:56 90 L 12/28/21 11:27 12/28/21 11:25 12/28/21 11:18 12/28/21 07:23 12/28/21 04:26 12/28/21 02:00 12/28/21 00:00 12/27/21 22:00 12/27/21 20:00 12/27/21 19:00 12/27/21 17:48 Intake and Output 12/28/21 12/28/21 12/28/21 06:59 14:59 22:59 Intake Total 840 Balance 840 Intake: Intake, IV Titration 600 Amount Potassium Chloride 10 meq 600 In Water For Injection 1 100ml.bag @ 100 mls/hr IVPB Q1HR TEN Rx#: [id number] Oral 240 Other: # Voids 1 # Bowel Movements 1 GENERAL EXAM: Alert, very pleasant 66 year old female patient, on 2 L nasal cannula, fairly comfortable in no apparent distress. HEAD: Normocephalic. EYES: Normal reaction of pupils, equal size. NOSE: Clear with pink turbinates. THROAT: No erythema or exudates. NECK: No masses, no JVD. CHEST: No chest wall deformity. LUNGS: Equal air entry with scattered rhonchi of the right lung. CVS: S1 and S2 normal with no audible murmur, regular rhythm. ABDOMEN: No hepatosplenomegaly, normal bowel sounds, no guarding or rigidity. SPINE: No scoliosis or deformity SKIN: No rashes CENTRAL NERVOUS SYSTEM: No focal deficits, tone is normal in all 4 extremities. EXTREMITIES: There is no peripheral edema. No clubbing, no cyanosis. Peripheral pulses are intact. Results - Laboratory Findings CBC and BMP: 12/28/21 05:36 12/28/21 05:36 PT/INR, D-dimer PT 11.1 sec (9.0-12.0) 12/27/21 17:45 INR 1.0 (<1.2) 12/27/21 17:45 Abnormal lab findings: Abnormal Labs 12/27/21 12/27/21 12/27/21 17:45 17:45 17:45 WBC 15.8 H RBC 3.41 L Hgb 8.9 L D Hct 30.2 L MCHC 29.6 L RDW 16.7 H Plt Count 735 H D Neutrophils # 12.7 H APTT 19.4 L Potassium 2.6 L* Chloride BUN 18 H Glucose 104 H Calcium 11.0 H Magnesium 2.4 H Total Protein Albumin 2.5 L Lipase 16 L Procalcitonin TSH Free T4 Urine Appearance Urine Protein Urine Blood Ur Leukocyte Esterase Urine WBC Ur Squamous Epith Cells Amorphous Sediment Urine Bacteria 12/27/21 12/27/21 12/28/21 19:00 20:33 05:36 WBC RBC Hgb Hct MCHC RDW Plt Count Neutrophils # APTT Potassium 2.6 L* Chloride BUN Glucose Calcium Magnesium Total Protein Albumin Lipase Procalcitonin 0.17 H TSH Free T4 Urine Appearance Cloudy H Urine Protein 1+ H Urine Blood Trace H Ur Leukocyte Esterase Trace H Urine WBC 17 H Ur Squamous Epith Cells 20 H Amorphous Sediment Rare H Urine Bacteria Occasional H 12/28/21 12/28/21 12/28/21 05:36 05:36 14:23 WBC 13.7 H RBC 3.34 L Hgb 9.0 L Hct 30.3 L MCHC 29.6 L RDW 16.5 H Plt Count 655 H Neutrophils # 10.3 H APTT Potassium 3.4 L Chloride 109 H BUN Glucose 107 H Calcium 10.4 H Magnesium Total Protein 6.2 L Albumin 2.3 L Lipase Procalcitonin TSH 0.373 L Free T4 2.33 H Urine Appearance Urine Protein Urine Blood Ur Leukocyte Esterase Urine WBC Ur Squamous Epith Cells Amorphous Sediment Urine Bacteria - Diagnostic Findings Chest x-ray: image reviewed CT scan - chest: image reviewed Assessment and Plan Assessment: 1 Acute hypoxemic respiratory failure secondary to progressive right upper lobe lung cancer with suspected postobstructive atelectasis 2 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 Currently receiving chemotherapy and radiation therapy with evidence of possible progression 3 Lytic lesions of L1, T10 and T7 4 Chronic obstructive pulmonary disease 5 Chronic tobacco dependence 6 Hypothyroidism 7 Hypertension Plan: The patient was seen and evaluated Chest x-ray, CAT scans and labs reviewed Continue DuoNeb inhalations Add empiric antibiotics in the form of Augmentin Titrate the FiO2 as tolerated We will continue to follow and make further recommendations based on her clinical status I, the cosigning physician, performed a history & physical examination of the patient. Lungs sounds with scattered rhonchi of the right lung. Maintaining good O2 saturations in the 90s on 2 L/m per nasal cannula. I discussed the assessment and plan of care with my nurse practitioner, Kristine Mathew. I attest to the above consultation as dictated by her. I have personally seen and examined the patient, performed the documentation and the assessment and plan as written. Number of minutes spent on the visit: 20.
--- NOTE | 2021-12-28 18:59 | P.CONS ---
History of Present Illness - Reason for Consult Consult date: 12/28/21 Lung Cancer Requesting physician: Keith May - History of Present Illness Follow up on lung cancer HPI : Jud is referred by Dr Lorenzana after recent CT Scan and bronchoscopy revealed Adenocarcinoma of lung, PMH of adenocarcinoma of the lung with metastases to spine, COPD, hypertension, and hypothyroidism She stated having increasing cough X 6-12 months, had CXR > CT Scan > RUL 7.9 cm mass with R hilar & Pre-carinal lymphadenopathy. PET Scan: Highly suspicious RUL and lymphadenopathy, as well as, L1 metastatic lesion. C/O increasing back pain X 2 months, Tyleno+Motrin not enough for pain control. Has anorexia & weight loss of 30-40 LBS X 3-6 months. She smoked 1 PPD X 45 years, quit 1 months ago. She has recently been evaluated by Dr. Portillo and was started on Keytruda 12/06/21 (status post two immune therapy). She presented to ER with hypoxia and increasing Shortness of breath. On admission: leukocytosis of 15.8, hemoglobin 8.9, platelets 735, potassium 2.6 CTA revealed a right upper lobe cavitary lesion with air fluid level new from prior with obstruction of the right upper lobe along with enlarging right lower lobe pulmonary nodule as and pathologic compression fracture of the L1 vertebrae with what appears to be progression. Review of Systems All systems: negative Constitutional: Reports as per HPI 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, pt states no BM past 2 weeks since PET/cat scan, hypothyroid, bilateral pedal edema History of Any Multi-Drug Resistant Organisms: None Reported Past Surgical History: Hysterectomy Additional Past Surgical History / Comment(s): 09/27/21 bronchoscopy Past Anesthesia/Blood Transfusion Reactions: No Reported Reaction Past Psychological History: No Psychological Hx Reported Smoking Status: Former smoker Past Alcohol Use History: None Reported Past Drug Use History: None Reported - Past Family History Father History Unknown: Yes Family Medical History: No Reported History Mother Family Medical History: Diabetes Mellitus Additional Family Medical History / Comment(s): Mother had a "bad heart" and at the age of 56yrs Medications and Allergies Home Medications Medication Instructions Recorded Confirmed Type Albuterol Sulfate [Proair Hfa] 2 puff INHALATION RT-Q6H PRN 09/25/21 12/27/21 History Levothyroxine Sodium [Synthroid] 125 mcg PO DAILY 09/25/21 12/27/21 History Montelukast Sodium [Singulair] 10 mg PO HS 09/25/21 12/27/21 History Multivitamins, Thera [Multivitamin 1 tab PO DAILY 09/25/21 12/27/21 History (formulary)] Cholecalciferol [Vitamin D3 (25 25 mcg PO DAILY 10/25/21 12/27/21 History Mcg = 1000 Iu)] Lisinopril [Zestril] 5 mg PO HS 12/27/21 12/27/21 History Morphine Sulfate ER [Ms Contin] 15 mg PO BID 12/27/21 12/27/21 History Pantoprazole [Protonix] 40 mg PO AC-BRKFST PRN 12/27/21 12/27/21 History lisinopriL [Zestril] 10 mg PO DAILY 12/27/21 12/27/21 History ondansetron HCL [Zofran] 8 mg PO Q6H PRN 12/27/21 12/27/21 History Allergies Allergy/AdvReac Type Severity Reaction Status Date / Time procaine [From Novocain] Allergy Swelling Verified 12/27/21 18:26 throat Physical Exam Vitals: Vital Signs Temp Pulse Pulse Pulse Pulse Pulse Pulse 12/28/21 12:25 97 90 12/28/21 11:56 78 85 78 84 12/28/21 11:27 70 12/28/21 11:25 98.0 F 70 12/28/21 11:18 67 12/28/21 07:23 12/28/21 04:26 97.6 F 85 12/28/21 02:00 97.5 F L 95 12/28/21 00:00 79 12/27/21 22:00 70 12/27/21 20:00 67 12/27/21 19:00 104 H 12/27/21 17:48 100 12/27/21 16:42 98.9 F 107 H Resp BP BP Pulse Ox Pulse Ox Pulse Ox Pulse Ox 12/28/21 12:25 12/28/21 11:56 100 98 97 12/28/21 11:27 02/18/22 11:25 16 115/77 98 12/28/21 11:18 12/28/21 07:23 99 12/28/21 04:26 18 128/83 97 12/28/21 02:00 18 133/84 94 L 12/28/21 00:00 20 143/92 95 12/27/21 22:00 18 134/89 94 L 12/27/21 20:00 20 124/90 95 12/27/21 19:00 18 122/78 95 12/27/21 17:48 18 123/84 98 12/27/21 16:42 22 105/64 91 L Pulse Ox 12/28/21 12:25 12/28/21 11:56 90 L 12/28/21 11:27 12/28/21 11:25 12/28/21 11:18 12/28/21 07:23 12/28/21 04:26 12/28/21 02:00 12/28/21 00:00 12/27/21 22:00 12/27/21 20:00 12/27/21 19:00 12/27/21 17:48 12/27/21 16:42 Intake and Output 12/27/21 12/28/21 12/28/21 22:59 06:59 14:59 Intake Total 840 Balance 840 Intake: Intake, IV Titration 600 Amount Potassium Chloride 10 meq 600 In Water For Injection 1 100ml.bag @ 100 mls/hr IVPB Q1HR TEN Rx#: [id number] Oral 240 Other: # Voids 1 # Bowel Movements 1 Weight 52.617 kg - Constitutional General appearance: Present: average body habitus, cooperative, no acute di stress - EENT Eyes: Present: anicteric sclerae, EOMI ENT: Present: hearing grossly normal - Respiratory Details: resp even and unlabored - Cardiovascular Rhythm: regular Heart sounds: normal: S1, S2 Abnormal Heart Sounds: Absent: systolic murmur, diastolic murmur, rub, S3 Gallop, S4 Gallop, click, other - Peripheral edema leg Peripheral Edema: bilateral: None - Gastrointestinal General gastrointestinal: Present: normal bowel sounds, soft - Neurologic Neurologic: Present: CNII-XII intact - Musculoskeletal Musculoskeletal: Present: generalized weakness, strength equal bilaterally - Psychiatric Psychiatric: Present: A&O x's 3, appropriate affect, intact judgment & insight Results CBC & Chem 7: 12/28/21 05:36 12/28/21 05:36 Labs: Abnormal Lab Results - Last 24 Hours (Table) 12/27/21 12/27/21 12/27/21 Range/Units 17:45 17:45 17:45 WBC 15.8 H (3.8-10.6) k/uL RBC 3.41 L (3.80-5.40) m/uL Hgb 8.9 L D (11.4-16.0) gm/dL Hct 30.2 L (34.0-46.0) % MCHC 29.6 L (31.0-37.0) g/dL RDW 16.7 H (11.5-15.5) % Plt Count 735 H D (150-450) k/uL Neutrophils # 12.7 H (1.3-7.7) k/uL APTT 19.4 L (22.0-30.0) sec Potassium 2.6 L* (3.5-5.1) mmol/L Chloride (98-107) mmol/L BUN 18 H (7-17) mg/dL Glucose 104 H (74-99) mg/dL Calcium 11.0 H (8.4-10.2) mg/dL Magnesium 2.4 H (1.6-2.3) mg/dL Total Protein (6.3-8.2) g/dL Albumin 2.5 L (3.5-5.0) g/dL Lipase 16 L (23-300) U/L Procalcitonin (0.02-0.09) ng/mL Urine Appearance (Clear) Urine Protein (Negative) Urine Blood (Negative) Ur Leukocyte Esterase (Negative) Urine WBC (0-5) /hpf Ur Squamous Epith Cells (0-4) /hpf Amorphous Sediment (None) /hpf Urine Bacteria (None) /hpf 12/27/21 12/27/21 12/28/21 Range/Units 19:00 20:33 05:36 WBC (3.8-10.6) k/uL RBC (3.80-5.40) m/uL Hgb (11.4-16.0) gm/dL Hct (34.0-46.0) % MCHC (31.0-37.0) g/dL RDW (11.5-15.5) % Plt Count (150-450) k/uL Neutrophils # (1.3-7.7) k/uL APTT (22.0-30.0) sec Potassium 2.6 L* (3.5-5.1) mmol/L Chloride (98-107) mmol/L BUN (7-17) mg/dL Glucose (74-99) mg/dL Calcium (8.4-10.2) mg/dL Magnesium (1.6-2.3) mg/dL Total Protein (6.3-8.2) g/dL Albumin (3.5-5.0) g/dL Lipase (23-300) U/L Procalcitonin 0.17 H (0.02-0.09) ng/mL Urine Appearance Cloudy H (Clear) Urine Protein 1+ H (Negative) Urine Blood Trace H (Negative) Ur Leukocyte Esterase Trace H (Negative) Urine WBC 17 H (0-5) /hpf Ur Squamous Epith Cells 20 H (0-4) /hpf Amorphous Sediment Rare H (None) /hpf Urine Bacteria Occasional H (None) /hpf 12/28/21 12/28/21 Range/Units 05:36 05:36 WBC 13.7 H (3.8-10.6) k/uL RBC 3.34 L (3.80-5.40) m/uL Hgb 9.0 L (11.4-16.0) gm/dL Hct 30.3 L (34.0-46.0) % MCHC 29.6 L (31.0-37.0) g/dL RDW 16.5 H (11.5-15.5) % Plt Count 655 H (150-450) k/uL Neutrophils # 10.3 H (1.3-7.7) k/uL APTT (22.0-30.0) sec Potassium 3.4 L (3.5-5.1) mmol/L Chloride 109 H (98-107) mmol/L BUN (7-17) mg/dL Glucose 107 H (74-99) mg/dL Calcium 10.4 H (8.4-10.2) mg/dL Magnesium (1.6-2.3) mg/dL Total Protein 6.2 L (6.3-8.2) g/dL Albumin 2.3 L (3.5-5.0) g/dL Lipase (23-300) U/L Procalcitonin (0.02-0.09) ng/mL Urine Appearance (Clear) Urine Protein (Negative) Urine Blood (Negative) Ur Leukocyte Esterase (Negative) Urine WBC (0-5) /hpf Ur Squamous Epith Cells (0-4) /hpf Amorphous Sediment (None) /hpf Urine Bacteria (None) /hpf Microbiology - Last 24 Hours (Table) 12/27/21 19:00 Urine Culture - Preliminary Urine,Voided Assessment and Plan Plan: Hypercalcemia: - Likely secondary to metastatic cancer to spine and pathologic fracture - PTH - Hydration and Recheck in am - Will check if Biphosphonate was given in past 30 days Acute on Chronic Hypoxic Respiratory Failure: - Likely secondary to metastatic lung cancer, potential part of post obstructive - Blood cultures and Urinalysis and Culture Hypokalemia: - Replaced per primary team - Patient on immune therapy need to assess for adrenal insufficiency and/or worsening hypothyroid. TSh, Cortisol, ACTH Metastatic adenocarcinoma Narrative/Plan: - Diagnosed in October - Patient has completed radiation for spinal lesion that was causing symptoms at time of diagnosis and started on monotherapy with imune therapy Keytruda in November 2021. - Potential Progression Current Visit: Yes Status: Acute Priority: High Code(s): C79.9 - SECONDARY MALIGNANT NEOPLASM OF UNSPECIFIED SITE SNOMED Code(s): 227595510309113 PLAN: - Add IV hydration for clinical and metabolic dehydration - Recheck Calcium in am, if improve will hold off on biphosphonate - Await IO side effect work up Doctor attests: I performed a history and physical examination of this patient, developed impression and plan of care. Discussed with dictator. I agree with dictators note, documented as a scribe.
[2021-12-28] MEDS: SENNOSIDES-DOCUSATE SODIUM 1 EACH TAB PO SCH (20:34)
[2021-12-29 02:41] LABS: % Iron Saturation 13.72 (12.00-45.00); Iron 22 ug/dL (50-170); Total Iron Binding Capacity 160 ug/dL (228-460); Vitamin B12 >2000.0 pg/mL (200.0-944.0)
[2021-12-29 03:22] LABS: Folate, Serum >20.00 ng/mL (4.40-31.00)
[2021-12-29] MEDS: 0.9% NACL WITH KCL 20 MEQ/L 1,000 ML IV SCH ×3 (07:08→22:43)
[2021-12-29] MEDS: IPRATROPIUM-ALBUTEROL 3 ML NEB INHALATION SCH ×4 (07:15→19:23)
[2021-12-29 08:59] LABS: Basophils # (A) 0.05 X 10*3/uL (0.00-0.10); Basophils % (A) 0.4 %; Eosinophils # (A) 0.38 X 10*3/uL (0.04-0.35); Eosinophils % (A) 3.2 %; HCT 27.2 % (37.2-46.3); HGB 7.7 g/dL (12.0-15.0); Immature Grans, Automated 1.8 %; Lymphocytes # (A) 1.97 X 10*3/uL (0.90-5.00); Lymphocytes % (A) 16.5 %; MCH 25.8 pg (27.0-32.0); MCHC 28.3 g/dL (32.0-37.0); Mean Platelet Volume 9.1 fL (9.5-12.2); Monocytes % (A) 6.7 %; NRBC Per 100 WBC 0.3 /100 WBCS (0.0-0.0); Neutrophils % (A) 71.4 %; Platelet Count 578 X 10*3/uL (140-440); RBC 2.99 X 10*6/uL (4.10-5.20); RDW 17.4 % (11.5-14.5); WBC 11.91 X 10*3/uL (4.50-10.00)
[2021-12-29 09:13] LABS: ALT 7 U/L (8-44); AST 9 U/L (13-35); African American GFR (CKD) 116.2 (60.0-200.0); Albumin 2.1 g/dL (3.8-4.9); Albumin/Globulin Ratio 0.62 (1.60-3.17); Alkaline Phosphatase 91 U/L (41-126); BUN/Creat Ratio 24.45 Ratio (12.00-20.00); Blood Urea Nitrogen 12.2 mg/dL (9.0-27.0); Calcium 9.5 mg/dL (8.7-10.3); Carbon Dioxide 20.6 mmol/L (20.0-27.5); Chloride 112 mmol/L (96-109); Globulin 3.4 g/dL (1.6-3.3); Glucose 85 mg/dL (70-110); Magnesium 2.6 mg/dL (1.5-2.4); Non-African American GFR(CKD) 100.2 (60.0-200.0); Potassium 4.1 mmol/L (3.5-5.5); Sodium 142 mmol/L (135-145); Total Bilirubin <0.15 mg/dL (0.30-1.20); Total Protein 5.6 g/dL (6.2-8.2)
[2021-12-29] MEDS: SENNOSIDES-DOCUSATE SODIUM 1 EACH TAB PO SCH ×2 (10:09→20:45)
[2021-12-29] MEDS: ENOXAPARIN 40 MG/0.4 ML SYRINGE SQ SCH (10:09)
[2021-12-29] MEDS: HYDROcodone/APAP 5-325MG 1 EACH TAB PO PRN ×3 (10:17→22:41)
[2021-12-29] MEDS: AMOXIC-POT CLAV 875-125MG 1 EACH TAB PO SCH ×2 (13:43→20:43)
--- NOTE | 2021-12-29 15:21 | P.PN ---
Subjective Progress Note Date: 12/29/21 This is a pleasant 66-year-old female patient with a known history of chronic and ongoing tobacco dependence of 50 years, chronic obstructive pulmonary disease with an FEV1 value 63% of predicted. she was initially seen in September 2021 for right upper lobe mass. 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 he was also found to have metastatic lytic lesions and [id number] lesion. She has been receiving chemotherapy and radiation therapy. She was receiving chemotherapy yesterday when they found her oxygen saturations to be low and she was referred here for the same. Chest x-ray continues to show a right upper lobe consolidation likely postobstructive atelectasis from known right upper lobe mass and/or enlargement of the right upper lobe mass. There is evidence of COPD. CT angiogram ruled out pulmonary embolism. There is again evidence of the right upper lobe cavitary lesion with air fluid level which is new compared to previous solid appearance. There is surrounding consolidation and likely obstructive atelectasis of the right upper lobe. There is obstruction of the right upper lobe airway. There is an enlarging right lower lobe pulmonary nodule with progression of compression deformities with lytic lesions T7, T10 and L1 concerning for worsening metastatic disease. Moderate emphysema changes. white count 13.7. Hemoglobin 9.0. Platelets 655. Sodium 138. Potassium 3.4. Creatinine 0.74. Glucose 107. Pro-calcitonin 0.17. TSH 0.37. Free T4 2 0.33. Cortisol 28. Narayan virus by PCR not detected. Urine culture pending. She's been initiated on DuoNeb inhalations, Lovenox for DVT prophylaxis. She is seen today in consultation on the oncology unit. She is currently sitting up in bed. Awake and alert. She does have a loose nonproductive cough. She is dyspneic with exertion. Her appetite is poor. She is having complaints of back pain. The patient is seen today 12/29/2021 in follow-up on the regular medical floor. She is currently sitting up in bed having lunch. Awake and alert in no acute distress. Breathing easier today compared to yesterday. Less cough and congestion. He is maintaining good O2 saturations in the mid to upper 90s on 2 L/m per nasal cannula. Afebrile. Hemodynamically stable. Urine culture positive for group D enterococcus. White count 11.9. Hemoglobin 7.7. Sodium 142. Potassium 4.1. Creatinine 0.5. Cortisol level XIX.5. ACTH 20.9. She remains on Augmentin, DuoNeb inhalations, prednisone. Objective - Vital Signs Vital signs: Vital Signs Temp 97.7 F 12/29/21 13:00 Pulse 84 12/29/21 15:13 Resp 19 12/29/21 13:00 BP 120/77 12/29/21 13:00 Pulse Ox 97 12/29/21 13:00 Intake & Output 12/28/21 12/29/21 12/29/21 18:59 06:59 18:59 Intake Total 200 1100 Balance 200 1100 Intake: Intake, IV Titration 200 1100 Amount 0.9% NaCl with KCl 20 Meq 200 1100 /l 1,000 ml @ 100 mls/hr IV .Q10H [facility] Rx#: [id number] Other: Voiding Method Toilet # Voids 1 3 # Bowel Movements 1 2 - Exam GENERAL EXAM: Alert, very pleasant 66 year old female patient, on 2 L nasal cannula, fairly comfortable in no apparent distress. HEAD: Normocephalic. EYES: Normal reaction of pupils, equal size. NOSE: Clear with pink turbinates. THROAT: No erythema or exudates. NECK: No masses, no JVD. CHEST: No chest wall deformity. LUNGS: Equal air entry with scattered rhonchi of the right lung. CVS: S1 and S2 normal with no audible murmur, regular rhythm. ABDOMEN: No hepatosplenomegaly, normal bowel sounds, no guarding or rigidity. SPINE: No scoliosis or deformity SKIN: No rashes CENTRAL NERVOUS SYSTEM: No focal deficits, tone is normal in all 4 extremities. EXTREMITIES: There is no peripheral edema. No clubbing, no cyanosis. Peripheral pulses are intact. - Labs CBC & Chem 7: 12/29/21 06:19 12/29/21 06:19 Labs: Abnormal Lab Results - Last 24 Hours (Table) 12/28/21 12/28/21 12/29/21 Range/Units 14:23 14:23 06:19 WBC 11.91 H (4.50-10.00) X 10*3/uL RBC 2.99 L (4.10-5.20) X 10*6/uL Hgb 7.7 L (12.0-15.0) g/dL Hct 27.2 L (37.2-46.3) % MCH 25.8 L (27.0-32.0) pg MCHC 28.3 L (32.0-37.0) g/dL RDW 17.4 H (11.5-14.5) % Plt Count 578 H (140-440) X 10*3/uL MPV 9.1 L (9.5-12.2) fL Absolute Nucleated RBC 0.03 H (0.00-0.00) X 10*3/uL Immature Gran # 0.21 H (0.00-0.04) X 10*3/uL Neutrophils # 8.50 H (1.80-7.70) X 10*3/uL Eosinophils # 0.38 H (0.04-0.35) X 10*3/uL NRBC/100 WBC Diff 0.3 H (0.0-0.0) /100 WBCS Chloride (96-109) mmol/L Anion Gap (10.00-18.00) mmol/L Creatinine (0.6-1.5) mg/dL BUN/Creatinine Ratio (12.00-20.00) Ratio Magnesium (1.5-2.4) mg/dL Iron 22 L (50-170) ug/dL TIBC 160 L (228-460) ug/dL Transferrin 114.0 L (204.0-354.0) mg/dL Total Bilirubin (0.30-1.20) mg/dL AST (13-35) U/L ALT (8-44) U/L Total Protein (6.2-8.2) g/dL Albumin (3.8-4.9) g/dL Globulin (1.6-3.3) g/dL Albumin/Globulin Ratio (1.60-3.17) g/dL Vitamin B12 >2000.0 H (200.0-944.0) pg/mL TSH 0.373 L (0.465-4.680) mIU/L Free T4 2.33 H (0.78-2.19) ng/dL PTH Intact 7.2 L (14.0-72.0) pg/mL 12/29/21 Range/Units 06:19 WBC (4.50-10.00) X 10*3/uL RBC (4.10-5.20) X 10*6/uL Hgb (12.0-15.0) g/dL Hct (37.2-46.3) % MCH (27.0-32.0) pg MCHC (32.0-37.0) g/dL RDW (11.5-14.5) % Plt Count (140-440) X 10*3/uL MPV (9.5-12.2) fL Absolute Nucleated RBC (0.00-0.00) X 10*3/uL Immature Gran # (0.00-0.04) X 10*3/uL Neutrophils # (1.80-7.70) X 10*3/uL Eosinophils # (0.04-0.35) X 10*3/uL NRBC/100 WBC Diff (0.0-0.0) /100 WBCS Chloride 112 H (96-109) mmol/L Anion Gap 9.50 L (10.00-18.00) mmol/L Creatinine 0.5 L (0.6-1.5) mg/dL BUN/Creatinine Ratio 24.45 H (12.00-20.00) Ratio Magnesium 2.6 H (1.5-2.4) mg/dL Iron (50-170) ug/dL TIBC (228-460) ug/dL Transferrin (204.0-354.0) mg/dL Total Bilirubin <0.15 L (0.30-1.20) mg/dL AST 9 L (13-35) U/L ALT 7 L (8-44) U/L Total Protein 5.6 L (6.2-8.2) g/dL Albumin 2.1 L (3.8-4.9) g/dL Globulin 3.4 H (1.6-3.3) g/dL Albumin/Globulin Ratio 0.62 L (1.60-3.17) g/dL Vitamin B12 (200.0-944.0) pg/mL TSH (0.465-4.680) mIU/L Free T4 (0.78-2.19) ng/dL PTH Intact (14.0-72.0) pg/mL Microbiology - Last 24 Hours (Table) 02/17/22 19:00 Urine Culture - Preliminary Urine,Voided Group D Enterococcus Assessment and Plan Assessment: 1 Acute hypoxemic respiratory failure secondary to progressive right upper lobe lung cancer with suspected postobstructive atelectasis 2 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 Currently receiving chemotherapy and radiation therapy with evidence of possible progression 3 Lytic lesions of L1, T10 and T7 4 Chronic obstructive pulmonary disease 5 Chronic tobacco dependence 6 Hypothyroidism 7 Hypertension Plan: The patient was seen and evaluated Continue DuoNeb inhalations, Symbicort, prednisone Continue Augmentin Titrate the FiO2 as tolerated Follow-up chest x-ray in a.m. We will continue to follow I, the cosigning physician, performed a history & physical examination of the patient. Lungs sounds with scattered rhonchi of the right lung. Maintaining good O2 saturations in the 90s on 2 L/m per nasal cannula. I discussed the assessment and plan of care with my nurse practitioner, Kristine Mathew. I attest to the above note as dictated by her. I have personally seen and examined the patient, performed the documentation and the assessment and plan as written. Number of minutes spent on the visit: 10.
[2021-12-29] MEDS: MORPHINE SULFATE 4 MG/ML SYRINGE IV PRN (16:12)
[2021-12-29] MEDS: SYMBICORT 160-4.5 MCG INHALER INHALATION SCH (19:23)
--- NOTE | 2021-12-29 21:20 | P.PN ---
Subjective Progress Note Date: 12/29/21 66-year-old female with a PMH of adenocarcinoma of the lung with metastases to spine, COPD, hypertension, and hypothyroidism who was sent to the emergency room from [facility] for hypoxia. The patient reports that she is currently undergoing chemotherapy for her malignancy and that she was advised to go to the ED since her SpO2 was diminished. The patient reports that she does not use any oxygen at home. She does report losing 20-30 pounds of weight since the diagnosis of her malignancy in August of last year. She denied any additional complaints. She denied chest discomfort, shortness of breath, fever, chills, cough, nausea, vomiting, abdominal pain, diarrhea. Upon presentation, the patient had an SpO2 of 91% on room air with laboratory evaluation showing leukocytosis of 15.8, hemoglobin 8.9, platelets 735, potassium 2.6. Chest CTA revealed a right upper lobe cavitary lesion with air fluid level new from prior with obstruction of the right upper lobe along with enlarging right lower lobe pulmonary nodule as well as a pathologic compression fracture of the L1 vertebrae with progression. Objective - Vital Signs Vital signs: Vital Signs Temp 97.7 F 12/29/21 13:00 Pulse 84 12/29/21 15:25 Resp 19 12/29/21 13:00 BP 120/77 12/29/21 13:00 Pulse Ox 97 12/29/21 13:00 Intake & Output 12/28/21 12/29/21 12/29/21 18:59 06:59 18:59 Intake Total 200 1100 Balance 200 1100 Intake: Intake, IV Titration 200 1100 Amount 0.9% NaCl with KCl 20 Meq 200 1100 /l 1,000 ml @ 100 mls/hr IV .Q10H [facility] Rx#: [id number] Other: Voiding Method Toilet # Voids 1 3 # Bowel Movements 1 2 - Exam General: non toxic, no distress, appears older than stated age, normal weight Head: atraumatic, normocephalic, symmetric Eyes: EOMI, no lid lag, anicteric sclera, pupils equal round reactive to light Neck: No thyromegaly, no cervical lymphadenopathy, trachea midline, supple Cardiovascular: S1S2 reg, no murmur, positive posterior tibial pulse bilateral, no edema, capillary refill less than 2 seconds Lungs: Scattered rhonchi without rales, no accessory muscle use Abdominal: soft, nontender to palpation, no guarding, no appreciable organomegaly, normal bowel sounds Ext: no gross muscle atrophy, muscle strength 5 out of 5 in all 4 extremities grossly, no contractures, Neuro: CN II-XI grossly intact, light touch intact all 4 extremities, finger to nose within normal limits, - Labs CBC & Chem 7: 12/29/21 06:19 12/29/21 06:19 Labs: Abnormal Lab Results - Last 24 Hours (Table) 12/28/21 12/28/21 12/29/21 Range/Units 14:23 14:23 06:19 WBC 11.91 H (4.50-10.00) X 10*3/uL RBC 2.99 L (4.10-5.20) X 10*6/uL Hgb 7.7 L (12.0-15.0) g/dL Hct 27.2 L (37.2-46.3) % MCH 25.8 L (27.0-32.0) pg MCHC 28.3 L (32.0-37.0) g/dL RDW 17.4 H (11.5-14.5) % Plt Count 578 H (140-440) X 10*3/uL MPV 9.1 L (9.5-12.2) fL Absolute Nucleated RBC 0.03 H (0.00-0.00) X 10*3/uL Immature Gran # 0.21 H (0.00-0.04) X 10*3/uL Neutrophils # 8.50 H (1.80-7.70) X 10*3/uL Eosinophils # 0.38 H (0.04-0.35) X 10*3/uL NRBC/100 WBC Diff 0.3 H (0.0-0.0) /100 WBCS Chloride (96-109) mmol/L Anion Gap (10.00-18.00) mmol/L Creatinine (0.6-1.5) mg/dL BUN/Creatinine Ratio (12.00-20.00) Ratio Magnesium (1.5-2.4) mg/dL Iron 22 L (50-170) ug/dL TIBC 160 L (228-460) ug/dL Transferrin 114.0 L (204.0-354.0) mg/dL Total Bilirubin (0.30-1.20) mg/dL AST (13-35) U/L ALT (8-44) U/L Total Protein (6.2-8.2) g/dL Albumin (3.8-4.9) g/dL Globulin (1.6-3.3) g/dL Albumin/Globulin Ratio (1.60-3.17) g/dL Vitamin B12 >2000.0 H (200.0-944.0) pg/mL Free T4 2.33 H (0.78-2.19) ng/dL PTH Intact 7.2 L (14.0-72.0) pg/mL 12/29/21 Range/Units 06:19 WBC (4.50-10.00) X 10*3/uL RBC (4.10-5.20) X 10*6/uL Hgb (12.0-15.0) g/dL Hct (37.2-46.3) % MCH (27.0-32.0) pg MCHC (32.0-37.0) g/dL RDW (11.5-14.5) % Plt Count (140-440) X 10*3/uL MPV (9.5-12.2) fL Absolute Nucleated RBC (0.00-0.00) X 10*3/uL Immature Gran # (0.00-0.04) X 10*3/uL Neutrophils # (1.80-7.70) X 10*3/uL Eosinophils # (0.04-0.35) X 10*3/uL NRBC/100 WBC Diff (0.0-0.0) /100 WBCS Chloride 112 H (96-109) mmol/L Anion Gap 9.50 L (10.00-18.00) mmol/L Creatinine 0.5 L (0.6-1.5) mg/dL BUN/Creatinine Ratio 24.45 H (12.00-20.00) Ratio Magnesium 2.6 H (1.5-2.4) mg/dL Iron (50-170) ug/dL TIBC (228-460) ug/dL Transferrin (204.0-354.0) mg/dL Total Bilirubin <0.15 L (0.30-1.20) mg/dL AST 9 L (13-35) U/L ALT 7 L (8-44) U/L Total Protein 5.6 L (6.2-8.2) g/dL Albumin 2.1 L (3.8-4.9) g/dL Globulin 3.4 H (1.6-3.3) g/dL Albumin/Globulin Ratio 0.62 L (1.60-3.17) g/dL Vitamin B12 (200.0-944.0) pg/mL Free T4 (0.78-2.19) ng/dL PTH Intact (14.0-72.0) pg/mL Microbiology - Last 24 Hours (Table) 12/27/21 19:00 Urine Culture - Preliminary Urine,Voided Group D Enterococcus Assessment and Plan Assessment: 1. Acute hypoxemic respiratory failure; multifactorial -- Progressive right upper lobe lung cancer - Suspected postobstructive atelectasis 2. Metastatic adenocarcinoma of lung with metastases to spine - Patient is currently receiving chemotherapy and radiation therapy; there is evidence of possible progression 3. Spine metastasis with lytic lesions to L1, T10 and T7 4. COPD; not in exacerbation; continue with DuoNeb nebulizer treatments, Symbicort and steroids; patient remains on Augmentin 5. Hypothyroidism; continue with home dose of levothyroxine 6. Hypertension; currently stable DVT prophylaxis; SCDs/subcu Lovenox CODE STATUS; full code
[2021-12-30] MEDS: MORPHINE SULFATE 4 MG/ML SYRINGE IV PRN ×3 (01:51→13:54)
--- NOTE | 2021-12-30 07:55 | XR ---
EXAMINATION TYPE: XR chest 1V portable DATE OF EXAM: 12/30/2021 Comparison: 12/27/2021 Clinical History: 66-year-old female RUL mass, post obstructive pneumonia Findings: Near-complete opacification right upper lobe persists. Air cavity in the right apex persists. Interst itial prominence throughout the remainder of the lungs and hyperinflation is similar. Heart normal si ze. Impression: Similar dense right upper lobe opacification with right apical cavitary change. Background COPD.
[2021-12-30] MEDS: IPRATROPIUM-ALBUTEROL 3 ML NEB INHALATION SCH ×4 (08:10→20:06)
[2021-12-30] MEDS: SYMBICORT 160-4.5 MCG INHALER INHALATION SCH ×2 (08:10→20:05)
[2021-12-30] MEDS: AMOXIC-POT CLAV 875-125MG 1 EACH TAB PO SCH ×2 (09:28→20:52)
[2021-12-30] MEDS: ENOXAPARIN 40 MG/0.4 ML SYRINGE SQ SCH (09:28)
[2021-12-30] MEDS: 0.9% NACL WITH KCL 20 MEQ/L 1,000 ML IV SCH ×2 (09:29→17:09)
[2021-12-30] MEDS: predniSONE 10 MG TAB PO SCH ×2 (09:29→09:31)
[2021-12-30] MEDS: SENNOSIDES-DOCUSATE SODIUM 1 EACH TAB PO SCH ×3 (09:29→20:53)
[2021-12-30] MEDS: MORPHINE SULFATE ER 15 MG TABLET PO SCH ×2 (11:15→20:50)
--- NOTE | 2021-12-30 11:54 | P.PN ---
Subjective Progress Note Date: 12/30/21 Principal diagnosis: Acute hypoxemic respiratory failure; multifactorial Progressive right upper lobe lung cancer Suspected postobstructive atelectasis Metastatic adenocarcinoma of lung with metastases to spine 66-year-old female with a PMH of adenocarcinoma of the lung with metastases to spine, COPD, hypertension, and hypothyroidism who was sent to the emergency room from [facility] for hypoxia. The patient reports that she is currently undergoing chemotherapy for her malignancy and that she was advised to go to the ED since her SpO2 was diminished. The patient reports that she does not use any oxygen at home. She does report losing 20-30 pounds of weight since the diagnosis of her malignancy in August of last year. She denied any additional complaints. She denied chest discomfort, shortness of breath, fever, chills, cough, nausea, vomiting, abdominal pain, diarrhea. Upon presentation, the patient had an SpO2 of 91% on room air with laboratory evaluation showing leukocytosis of 15.8, hemoglobin 8.9, platelets 735, potassium 2.6. Chest CTA revealed a right upper lobe cavitary lesion with air fluid level new from prior with obstruction of the right upper lobe along with enlarging right lower lobe pulmonary nodule as well as a pathologic compression fracture of the L1 vertebrae with progression. 12/30/2021 Patient is seen and evaluated in room at bedside and discussed with nursing staff; reports uncontrolled back pain Vital signs are reviewed; temperature of 97.7, pulse 73, respirations 16 and blo od pressure 137/82 Continues to have uncontrolled pain; currently on morphine sulfate 4 mg IV every 4 hours when necessary which is not sustaining; we will reorder home medication of MS Contin 15 mg every 12 hours Repeat chest x-ray this morning remains unchanged, revealing similar dense right upper lobe opacification with right apical cavitary change Continue with DuoNeb nebulizer treatments, Symbicort and prednisone; patient remains on Augmentin; plan is to titrate FiO2 as able Pulmonary to make further recommendations after reviewing chest x-ray Objective - Vital Signs Vital signs: Vital Signs Temp 97.7 F 12/30/21 04:51 Pulse 86 12/30/21 08:20 Resp 16 12/30/21 04:51 BP 137/82 12/30/21 04:51 Pulse Ox 97 12/30/21 04:51 Intake & Output 02/19/22 02/20/22 02/20/22 18:59 06:59 18:59 Intake Total 1200 590 Balance 1200 590 Intake: Intake, IV Titration 1200 Amount 0.9% NaCl with KCl 20 Meq 1200 /l 1,000 ml @ 100 mls/hr IV .Q10H [facility] Rx#: [id number] Oral 590 Other: Voiding Method Toilet # Voids 2 3 # Bowel Movements 3 3 - Exam General: non toxic, no distress, appears older than stated age, normal weight Head: atraumatic, normocephalic, symmetric Eyes: EOMI, no lid lag, anicteric sclera, pupils equal round reactive to light Neck: No thyromegaly, no cervical lymphadenopathy, trachea midline, supple Cardiovascular: S1S2 reg, no murmur, positive posterior tibial pulse bilateral, no edema, capillary refill less than 2 seconds Lungs: Scattered rhonchi without rales, no accessory muscle use Abdominal: soft, nontender to palpation, no guarding, no appreciable organomegaly, normal bowel sounds Ext: no gross muscle atrophy, muscle strength 5 out of 5 in all 4 extremities grossly, no contractures, Neuro: CN II-XI grossly intact, light touch intact all 4 extremities, finger to nose within normal limits, - Labs CBC & Chem 7: 12/29/21 06:19 12/29/21 06:19 Labs: Microbiology - Last 24 Hours (Table) 12/27/21 19:00 Urine Culture - Final Urine,Voided Enterococcus faecalis 12/28/21 14:23 Blood Culture - Preliminary Blood No Growth after 24 hours 12/28/21 14:23 Blood Culture - Preliminary Blood No Growth after 24 hours Assessment and Plan Assessment: 1. Acute hypoxemic respiratory failure; multifactorial -- Progressive right upper lobe lung cancer - Suspected postobstructive atelectasis 2. Metastatic adenocarcinoma of lung with metastases to spine - Patient is currently receiving chemotherapy and radiation therapy; there is evidence of possible progression 3. Spine metastasis with lytic lesions to L1, T10 and T7 4. COPD; not in exacerbation; continue with DuoNeb nebulizer treatments, Symbicort and steroids; patient remains on Augmentin 5. Hypothyroidism; continue with home dose of levothyroxine 6. Hypertension; currently stable DVT prophylaxis; SCDs/subcu Lovenox CODE STATUS; full code
--- NOTE | 2021-12-30 14:31 | P.PN ---
Subjective Progress Note Date: 12/30/21 Principal diagnosis: Lung cancer. This is a pleasant 66-year-old female patient with a known history of chronic and ongoing tobacco dependence of 50 years, chronic obstructive pulmonary disease with an FEV1 value 63% of predicted. she was initially seen in September 2021 for right upper lobe mass. 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 he was also found to have metastatic lytic lesions and E4ioeyl lesion. She has been receiving chemotherapy and radiation therapy. She was receiving chemotherapy yesterday when they found her oxygen saturations to be low and she was referred here for the same. Chest x-ray continues to show a right upper lobe consolidation likely postobstructive atelectasis from known right upper lobe mass and/or enlargement of the right upper lobe mass. There is evidence of COPD. CT angiogram ruled out pulmonary embolism. There is again evidence of the right upper lobe cavitary lesion with air fluid level which is new compared to previous solid appearance. There is surrounding consolidation and likely obstructive atelectasis of the right upper lobe. There is obstruction of the right upper lobe airway. There is an enlarging right lower lobe pulmonary nodule with progression of compression deformities with lytic lesions T7, T10 and L1 concerning for worsening metastatic disease. Moderate emphysema changes. white count 13.7. Hemoglobin 9.0. Platelets 655. Sodium 138. Potassium 3.4. Creatinine 0.74. Glucose 107. Pro-calcitonin 0.17. TSH 0.37. Free T4 2 0.33. Cortisol 28. Narayan virus by PCR not detected. Urine culture pending. She's been initiated on DuoNeb inhalations, Lovenox for DVT prophylaxis. She is seen today in consultation on the oncology unit. She is currently sitting up in bed. Awake and alert. She does have a loose nonproductive cough. She is dyspneic with exertion. Her appetite is poor. She is having complaints of back pain. The patient is seen today 12/29/2021 in follow-up on the regular medical floor. She is currently sitting up in bed having lunch. Awake and alert in no acute distress. Breathing easier today compared to yesterday. Less cough and congestion. He is maintaining good O2 saturations in the mid to upper 90s on 2 L/m per nasal cannula. Afebrile. Hemodynamically stable. Urine culture positive for group D enterococcus. White count 11.9. Hemoglobin 7.7. Sodium 142. Potassium 4.1. Creatinine 0.5. Cortisol level XIX.5. ACTH 20.9. She remains on Augmentin, DuoNeb inhalations, prednisone. Progress note dated 12/30/2021. Currently, the patient's feeling much better. The patient is currently on 2 L nasal cannula. She's getting saline with 20 mEq potassium, at 50 mL an hour. Her cough is much improved. She feels much less short of breath. Yesterday, we added Augmentin, prednisone and updrafts. It seems to have helped. No new labs today. Labs from yesterday are reviewed. Urine reveals Enterococcus faecalis. Chest x-ray shows density in the right upper lobe, with cavitary changes. X-ray is essentially unchanged in my opinion. Objective - Vital Signs Vital signs: Vital Signs Temp 98 F 12/30/21 13:00 Pulse 91 12/30/21 13:00 Resp 18 12/30/21 13:00 BP 145/81 12/30/21 13:00 Pulse Ox 98 12/30/21 13:00 Intake & Output 12/29/21 12/30/21 12/30/21 18:59 06:59 18:59 Intake Total 1200 590 Balance 1200 590 Intake: Intake, IV Titration 1200 Amount 0.9% NaCl with KCl 20 Meq 1200 /l 1,000 ml @ 100 mls/hr IV .Q10H [facility] Rx#: [id number] Oral 590 Other: Voiding Method Toilet Toilet # Voids 2 3 # Bowel Movements 3 3 - Exam No acute distress, oriented 3. Currently on 2 L nasal cannula. Saturations are 96%. HEENT examination is grossly unremarkable. Neck supple. Full range of motion. No adenopathy thyromegaly or neck vein distention. Cardiovascular examination reveals regular rhythm rate. S1-S2 normal. No S3 or S4. No discernible murmur noted. Heart sounds are distant. Heart rate 80 bpm. Lungs reveal diffuse coarse rhonchi. Breath sounds equal bilaterally. Minimal expiratory wheezes. No crackles. Breath sounds are improved. Abdomen soft bowel sounds are heard. No masses or tenderness. Extremities are intact. No cyanosis clubbing or edema. Skin is without rash or lesion. Neurologic examination is brief but nonfocal. - Labs CBC & Chem 7: 12/29/21 06:19 12/29/21 06:19 Labs: Microbiology - Last 24 Hours (Table) 12/27/21 19:00 Urine Culture - Final Urine,Voided Enterococcus faecalis 12/28/21 14:23 Blood Culture - Preliminary Blood No Growth after 24 hours 12/28/21 14:23 Blood Culture - Preliminary Blood No Growth after 24 hours Assessment and Plan Assessment: 1 Acute hypoxemic respiratory failure secondary to progressive right upper lobe lung cancer with suspected postobstructive atelectasis. 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 Currently receiving chemotherapy and radiation therapy with evidence of possible progression. 3 Lytic lesions of L1, T10 and T7. 4 Chronic obstructive pulmonary disease. 5 Chronic tobacco dependence. 6 Hypothyroidism. 7 Hypertension. 8 Enterococcus faecalis urinary tract infection. Plan: Plan dated 12/30/2021. Patient is doing much better. The patient's breathing is much improved. The patient states that her cough is much improved as well. She's currently on 2 L nasal cannula. The patient's getting saline with 20 mEq of potassium at 50 mL an hour. In addition, we added Augmentin, Symbicort, DuoNeb nebs, and prednisone. Additional recommendations and suggestions are forthcoming. Prognosis is guarded. We will continue to follow make recommendations where appropriate. Time with Patient: Less than 30
--- NOTE | 2021-12-30 18:26 | P.PN ---
Subjective Progress Note Date: 12/30/21 The patient is doing better. She continues on oxygen, as well as respiratory treatments and antibiotic. Well endurance is still markedly compromise, respiratory status at rest, as well as cough has shown definite improvement Objective - Vital Signs Vital signs: Vital Signs Temp 98 F 12/30/21 13:00 Pulse 91 12/30/21 13:00 Resp 18 12/30/21 13:00 BP 145/81 12/30/21 13:00 Pulse Ox 98 12/30/21 13:00 Intake & Output 12/29/21 12/30/21 12/30/21 18:59 06:59 18:59 Intake Total 5721 599 9986 Balance 1975 668 0801 Intake: Intake, IV Titration 1200 1200 Amount 0.9% NaCl with KCl 20 Meq 1200 1200 /l 1,000 ml @ 100 mls/hr IV .Q10H TEN Rx#: [id number] Oral 590 240 Other: Voiding Method Toilet Toilet # Voids 2 3 4 # Bowel Movements 3 3 - Constitutional General appearance: Present: no acute distress - EENT Eyes: Present: EOMI ENT: Present: hearing grossly normal, normal oropharynx - Respiratory Respiratory: bilateral: diminished, prolonged expiration - Cardiovascular Rhythm: regular Heart sounds: normal: S1, S2 - Gastrointestinal General gastrointestinal: Present: normal bowel sounds, soft - Integumentary Integumentary: Present: normal - Neurologic Neurologic: Present: CNII-XII intact - Musculoskeletal Musculoskeletal: Present: generalized weakness, strength equal bilaterally - Psychiatric Psychiatric: Present: A&O x's 3, appropriate affect - Labs CBC & Chem 7: 12/29/21 06:19 12/29/21 06:19 Labs: Microbiology - Last 24 Hours (Table) 12/28/21 14:23 Blood Culture - Preliminary Blood No Growth after 48 hours 12/28/21 14:23 Blood Culture - Preliminary Blood No Growth after 48 hours 12/27/21 19:00 Urine Culture - Final Urine,Voided Enterococcus faecalis Assessment and Plan (1) Hypoxemia Narrative/Plan: the patient workup was negative for pulmonary embolus, cardiac causes, as well as pneumonitis. Her symptoms have improved with treatment for COPD exacerbatio n/bronchitis. He is also doing better since being initiated on oxygen. Continue treatment for the admitting service and pulmonary medicine. Current Visit: Yes Status: Acute Code(s): R09.02 - HYPOXEMIA SNOMED Code(s): 445572427 (2) History of lung cancer Narrative/Plan: the patient has been initiated on immunotherapy in the first-line for her met astatic lung cancer in 12/01. Her CT scan results from this visit were discussed with her. They show possible progression of malignancy. She was advised that these results are NOT to be considered in terms of assessing her cancer response at this time. There was a lag between her last CT scan prior to this, and initiation of treatment. During which time operation could have occurred. In addition, with immunotherapy, pseudo-progression in the initial stages of treatment is also quite possible. 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 She was advised that typically with her type of treatment, restaging scans are performed after 3-4 months. - Therefore, the plan would be to resume her current treatment post discharge as and when she is medically stable for the same Current Visit: Yes Status: Acute Code(s): Z85.118 - PERSONAL HISTORY OF MALIGNANT NEOPLASM OF BRONCHUS AND LUNG SNOMED Code(s): 590752591
[2021-12-31] MEDS: HYDROcodone/APAP 5-325MG 1 EACH TAB PO PRN ×2 (00:29→11:57)
[2021-12-31] MEDS: 0.9% NACL WITH KCL 20 MEQ/L 1,000 ML IV SCH ×3 (06:15→22:17)
[2021-12-31] MEDS: SENNOSIDES-DOCUSATE SODIUM 1 EACH TAB PO SCH ×3 (07:49→20:44)
[2021-12-31] MEDS: AMOXIC-POT CLAV 875-125MG 1 EACH TAB PO SCH ×2 (07:49→20:48)
[2021-12-31] MEDS: predniSONE 10 MG TAB PO SCH (07:49)
[2021-12-31] MEDS: MORPHINE SULFATE ER 15 MG TABLET PO SCH ×2 (07:49→20:44)
[2021-12-31] MEDS: ENOXAPARIN 40 MG/0.4 ML SYRINGE SQ SCH (07:49)
[2021-12-31] MEDS: IPRATROPIUM-ALBUTEROL 3 ML NEB INHALATION SCH ×4 (08:17→19:14)
[2021-12-31] MEDS: SYMBICORT 160-4.5 MCG INHALER INHALATION SCH ×2 (08:17→19:14)
--- NOTE | 2021-12-31 11:47 | P.PN ---
Subjective Progress Note Date: 12/31/21 Principal diagnosis: Acute hypoxia On the 12/31/2021 patient seen in follow-up on medical surgical floor. She is breathing more comfortably today, she is satting 98% on 2-1/2 L, she is awake and alert, oriented 3. She's been afebrile, vital signs have been stable. No significant cough or phlegm production, no complaints of chest discomfort, her last chest x-ray from 12/30/2021 showed a similar dense right upper lobe opacification with right apical cavitary changes on the background of COPD. However clinically patient is improving. She remains on abiotic's for evidence of urinary tract infection and urine culture positive for Enterococcus faecalis, blood cultures have been negative. These labs have been reviewed, with blood cell count is improving and is down to 11.9, hemoglobin is 7.7, sodium is 142, potassium is 4.1, chloride is 112, BUN is 12.5, creatinine is 0.5. Patient remains on nebulized bronchodilators, she is on oral Augmentin, Symbicort. She is receiving IV hydration with 0.9 normal saline with 20 of potassium chloride at a rate of 100 ML per hour. Objective - Vital Signs Vital signs: Vital Signs Temp 97.5 F L 12/31/21 04:50 Pulse 79 12/31/21 09:16 Resp 18 12/31/21 04:50 BP 133/81 12/31/21 04:50 Pulse Ox 98 12/31/21 04:50 Intake & Output 12/30/21 12/31/21 12/31/21 18:59 06:59 18:59 Intake Total 1440 900 Balance 1440 900 Intake: Intake, IV Titration 1200 900 Amount 0.9% NaCl with KCl 20 Meq 1200 900 /l 1,000 ml @ 100 mls/hr IV .Q10H TEN Rx#: [id number] Oral 240 Other: Voiding Method Toilet Toilet # Voids 4 4 - Exam GENERAL EXAM: Alert, very pleasant, 66-year-old white female, resting comfortably in bed, satting 98% on 2-1/2 L comfortable in no apparent distress. HEAD: Normocephalic/atraumatic. EYES: Normal reaction of pupils, equal size. Conjunctiva pink, sclera white. NOSE: Clear with pink turbinates. THROAT: No erythema or exudates. NECK: No masses, no JVD, no thyroid enlargement, no adenopathy. CHEST: No chest wall deformity. Symmetrical expansion. LUNGS: Equal air entry with diminished breath sounds in minimal crackles at the right upper lobe CVS: Regular rate and rhythm, normal S1 and S2, no gallops, no murmurs, no rubs ABDOMEN: Soft, nontender. No hepatosplenomegaly, normal bowel sounds, no guarding or rigidity. EXTREMITIES: No clubbing, no edema, no cyanosis, 2+ pulses and upper and lower extremities. MUSCULOSKELETAL: Muscle strength and tone normal. SPINE: No scoliosis or deformity SKIN: No rashes CENTRAL NERVOUS SYSTEM: Alert and oriented -3. No focal deficits, tone is normal in all 4 extremities. PSYCHIATRIC: Alert and oriented -3. Appropriate affect. Intact judgment and insight. - Labs CBC & Chem 7: 12/29/21 06:19 12/29/21 06:19 Labs: Microbiology - Last 24 Hours (Table) 12/28/21 14:23 Blood Culture - Preliminary Blood No Growth after 48 hours 12/28/21 14:23 Blood Culture - Preliminary Blood No Growth after 48 hours Assessment and Plan Plan: Assessment: #1. Acute hypoxic respiratory failure secondary to progressive right upper lobe lung cancer with suspected postobstructive atelectasis #2. 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 Patient is currently receiving chemotherapy and radiation, there is cuca dence of possible progression #3. Lytic lesions to a 1, T10 and T7 #4. Chronic COPD, with FEV1 of 63% of predicted #5. Tobacco dependence #6. Hypothyroidism #7. Hypertension #8. Acute urinary tract infection related to enterococcus faecalis Plan: Patient continues to improve Breathing comfortably, she is afebrile Obtain home oxygen assessment No acute events overnight, no fever or chills Continues on oral antibiotics From pulmonary perspective she can be considered for discharge home if cleared by medicine and medical oncology Outpatient follow-up with Dr. Peña in the office in one or 2 weeks I performed a history & physical examination of the patient and discussed their management with my nurse practitioner, Mary Jeffries. I reviewed the nurse practitioner's note and agree with the documented findings and plan of care. Lung sounds are positive for dim breath sounds throughout the lung velasquez. The findings and the impression was discussed with the patient. I attest to the documentation by the nurse practitioner. Time with Patient: Less than 30
--- NOTE | 2021-12-31 16:04 | P.PN ---
Subjective Progress Note Date: 12/31/21 Acute hypoxemic respiratory failure; multifactorial Progressive right upper lobe lung cancer Suspected postobstructive atelectasis Metastatic adenocarcinoma of lung with metastases to spine 66-year-old female with a PMH of adenocarcinoma of the lung with metastases to spine, COPD, hypertension, and hypothyroidism who was sent to the emergency room from [facility] for hypoxia. The patient reports that she is currently undergoing chemotherapy for her malignancy and that she was advised to go to the ED since her SpO2 was diminished. The patient reports that she does not use any oxygen at home. She does report losing 20-30 pounds of weight since the diagnosis of her malignancy in August of last year. She denied any additional complaints. She denied chest discomfort, shortness of breath, fever, chills, cough, nausea, vomiting, abdominal pain, diarrhea. Upon presentation, the patient had an SpO2 of 91% on room air with laboratory evaluation showing leukocytosis of 15.8, hemoglobin 8.9, platelets 735, potassium 2.6. Chest CTA revealed a right upper lobe cavitary lesion with air fluid level new from prior with obstruction of the right upper lobe along with enlarging right lower lobe pulmonary nodule as well as a pathologic compression fracture of the L1 vertebrae with progression. 12/30/2021 Patient is seen and evaluated in room at bedside and discussed with nursing staff; reports uncontrolled back pain Vital signs are reviewed; temperature of 97.7, pulse 73, respirations 16 and blood pressure 137/82 Continues to have uncontrolled pain; currently on morphine sulfate 4 mg IV every 4 hours when necessary which is not sustaining; we will reorder home medication of MS Contin 15 mg every 12 hours Repeat chest x-ray this morning remains unchanged, revealing similar dense right upper lobe opacification with right apical cavitary change Continue with DuoNeb nebulizer treatments, Symbicort and prednisone; patient remains on Augmentin; plan is to titrate FiO2 as able Pulmonary to make further recommendations after reviewing chest x-ray 12/31/2021 Patient is seen and evaluated and follow-up currently being closely monitored and pulmonary and oncology following closely. Patient is continued on 3 L via nasal cannula and states she does not use oxygen in the outpatient setting. Patient with COPD exacerbation and maintained on breathing inhalational treatments along with prednisone and Symbicort and will continue. Patient also on oral antibiotics in the form of Augmentin and subcutaneous Lovenox and will continue. Patient denies any chest pain or worsening shortness of breath. Patient encouraged to increase activity as tolerated. Recommend continue with current medications. Patient is afebrile. No reports of nausea or vomiting and tolerating diet. Will have home O2 evaluation as patient may require oxygen on discharge Review of systems: Constitutional: No reports of fatigue, fever, or chills Cardiovascular: No reports of chest pain or palpitations Respiratory: No reports of worsening shortness of breath , reports continued co ugh GI: reports of nausea, no reports of of vomiting, or diarrhea : No reports of dysuria or retention Neurovascular: No reports of weakness or numbness All medications have been reviewed Active Medications Acetaminophen (Acetaminophen Tab 325 Mg Tab) 650 mg PO Q6HR PRN PRN Reason: Mild Pain or Fever > 100.5 Hydrocodone Bitart/Acetaminophen (Hydrocodone/Apap 5-325mg 1 Each Tab) 1 each PO Q4HR PRN PRN Reason: Moderate Pain Last Admin: 12/31/21 11:57 Dose: 1 each Documented by: Albuterol/Ipratropium (Ipratropium-Albuterol 3 Ml Neb) 3 ml INHALATION RT-QID PRN PRN Reason: Shortness Of Breath Or Wheezing Last Admin: 12/31/21 02:59 Dose: 3 ml Documented by: Albuterol/Ipratropium (Ipratropium-Albuterol 3 Ml Neb) 3 ml INHALATION RT-QID [facility] Last Admin: 12/31/21 15:53 Dose: 3 ml Documented by: Amoxicillin/Clavulanate Potassium (Amoxic-Pot Clav 875-125mg 1 Each Tab) 1 each PO Q12HR [facility] Last Admin: 12/31/21 07:49 Dose: 1 each Documented by: Budesonide/Formoterol Fumarate (Symbicort 160-4.5 Mcg Inhaler) 2 puff INHALATION RT-BID [facility] Last Admin: 12/31/21 08:17 Dose: 2 puff Documented by: Enoxaparin Sodium (Enoxaparin 40 Mg/0.4 Ml Syringe) 40 mg SQ DAILY [facility] Last Admin: 12/31/21 07:49 Dose: 40 mg Documented by: Potassium Chloride/Sodium Chloride (Ns-Kcl 20 Meq/L Iv Solution) 1,000 mls @ 100 mls/hr IV .Q10H [facility] Last Admin: 12/31/21 11:53 Dose: 100 mls/hr Documented by: Lorazepam (Lorazepam 2 Mg/Ml Inj) 0.5 mg IV Q6HR PRN PRN Reason: Anxiety Last Admin: 12/31/21 03:16 Dose: 0.5 mg Documented by: Miscellaneous Information (Potassium Replacement Protocol 1 Each Misc) 1 each MISCELLANE DAILY PRN; Protocol PRN Reason: Per Protocol Morphine Sulfate (Morphine Sulfate 4 Mg/Ml Syringe) 4 mg IV Q4HR PRN PRN Reason: Severe Pain Last Admin: 12/30/21 13:54 Dose: 4 mg Documented by: Morphine Sulfate (Morphine Sulfate Er 15 Mg Tablet) 15 mg PO Q12HR TEN; Protocol Last Admin: 12/31/21 07:49 Dose: 15 mg Documented by: Naloxone HCl (Naloxone 0.4 Mg/Ml 1 Ml Vial) 0.2 mg IV Q2M PRN PRN Reason: Opioid Reversal Ondansetron HCl (Ondansetron 4 Mg/2 Ml Vial) 4 mg IVP Q8HR PRN PRN Reason: Nausea And Vomiting Prednisone (Prednisone 10 Mg Tab) 30 mg PO DAILY [facility] Last Admin: 12/31/21 07:49 Dose: 30 mg Documented by: Senna/Docusate Sodium (Sennosides-Docusate Sodium 1 Each Tab) 2 each PO BID [facility] Last Admin: 12/31/21 07:53 Dose: Not Given Documented by: PHYSICAL EXAMINATION: GENERAL: The patient is alert and oriented x4, Well developed, well nourished. Thin built HEENT: Pupils are round and equally reacting to light. EOMI. does have scleral icterus. No conjunctival pallor. Normocephalic, atraumatic. No pharyngeal erythema. No thyromegaly. CARDIOVASCULAR: S1 and S2 muffled PULMONARY: diminished breath sounds bilaterally with some scattered rhonchi and expiratory wheezes noted with crackles at the bases. ABDOMEN: soft. Nontender on exam. non-distended, normoactive bowel sounds. No palpable organomegaly. MUSCULOSKELETAL: No joint swelling or deformity. EXTREMITIES: No cyanosis, clubbing, or pedal edema. NEUROLOGICAL: Gross neurological examination did not reveal any focal deficits. SKIN: No rashes. Assessment: Acute hypoxic respiratory failure, multifactorial with progressive right upper lobe lung cancer Suspected postobstructive atelectasis Metastatic adenocarcinoma of the lung with metastasis to the spine, currently receiving chemotherapy and radiation therapy Spine metastasis with lytic lesions to the L1, T10, T7 COPD, acute exacerbation Hypothyroidism Hypertension GI prophylaxis DVT prophylaxis Full code Plan: Recommend to continue with current medications and management. Pulmonary and oncology following as patient is actively receiving chemoradiation treatments in the outpatient setting. Patient is maintained on oral Augmentin along with breathing inhalational treatments and oral prednisone and will continue. Patient is currently on 3 L via nasal cannula and does not wear oxygen in the outpatient setting and will evaluate for home O2 and case management to arrange for possible oxygen upon discharge. Recommend follow-up labs in the morning. Due to multiple complex medical issues, prognosis is guarded. The impression and plan of care has been dictated by Carolin Corrales, nurse practitioner as directed. MD Juany I have performed a history and examination and MDM of this patient, discussed the same with the dictator, and agree with the dictator's assessment and plan as written ,documented as a scribe. Based on total visit time, I have performed more than 50% of the visit. Any additional findings or plans will be noted. Objective - Vital Signs Vital signs: Vital Signs Temp 97.5 F L 12/31/21 04:50 Pulse 79 12/31/21 09:16 Resp 18 12/31/21 04:50 BP 133/81 12/31/21 04:50 Pulse Ox 98 12/31/21 04:50 Intake & Output 12/30/21 12/31/21 12/31/21 18:59 06:59 18:59 Intake Total 1440 900 Balance 1440 900 Intake: Intake, IV Titration 1200 900 Amount 0.9% NaCl with KCl 20 Meq 1200 900 /l 1,000 ml @ 100 mls/hr IV .Q10H TEN Rx#: [id number] Oral 240 Other: Voiding Method Toilet Toilet # Voids 4 4 - Labs CBC & Chem 7: 12/29/21 06:19 12/29/21 06:19 Labs: Microbiology - Last 24 Hours (Table) 12/28/21 14:23 Blood Culture - Preliminary Blood No Growth after 48 hours 12/28/21 14:23 Blood Culture - Preliminary Blood No Growth after 48 hours
[2021-12-31] MEDS ORDERED: CALCIUM CARBONATE 500 MG CHEWABLE PO PRN (19:38)
[2021-12-31] MEDS: PANTOPRAZOLE 40 MG/10 ML VIAL IVP SCH (20:44)
[2022-01-01] MEDS: SYMBICORT 160-4.5 MCG INHALER INHALATION SCH (07:36)
[2022-01-01] MEDS: IPRATROPIUM-ALBUTEROL 3 ML NEB INHALATION SCH ×2 (07:36→11:16)
[2022-01-01 07:44] LABS: Anisocytosis Slight; Basophils % (A) 0 %; Eosinophils # (A) 0.4 k/uL (0-0.7); Eosinophils % (A) 3 %; HCT 30.8 % (34.0-46.0); HGB 8.8 gm/dL (11.4-16.0); Hypochromasia Marked; Lymphocytes # (A) 1.3 k/uL (1.0-4.8); Lymphocytes % (A) 9 %; MCHC 28.6 g/dL (31.0-37.0); MCV 94.2 fL (80.0-100.0); Mean Platelet Volume 6.9; Monocytes # (A) 0.6 k/uL (0-1.0); Monocytes % (A) 5 %; Neutrophils # (A) 11.3 k/uL (1.3-7.7); Neutrophils % (A) 82 %; Platelet Count 548 k/uL (150-450); Poikilocytosis Slight; RBC 3.27 m/uL (3.80-5.40); RDW 17.2 % (11.5-15.5); WBC 13.8 k/uL (3.8-10.6)
[2022-01-01 07:52] VITALS: RESP 18
[2022-01-01 07:58] LABS: African American GFR (CKD) >90 (>60 ml/min/1.73 sqM); Anion Gap 3 mmol/L; Blood Urea Nitrogen 10 mg/dL (7-17); Calcium 8.8 mg/dL (8.4-10.2); Carbon Dioxide 22 mmol/L (22-30); Chloride 117 mmol/L (98-107); Glucose 74 mg/dL (74-99); Non-African American GFR(CKD) >90 (>60 ml/min/1.73 sqM); Potassium 3.8 mmol/L (3.5-5.1); Sodium 142 mmol/L (137-145)
[2022-01-01] MEDS: MORPHINE SULFATE ER 15 MG TABLET PO SCH (08:30)
[2022-01-01] MEDS: predniSONE 10 MG TAB PO SCH (09:43)
[2022-01-01] MEDS: AMOXIC-POT CLAV 875-125MG 1 EACH TAB PO SCH (09:43)
[2022-01-01] MEDS: PANTOPRAZOLE 40 MG/10 ML VIAL IVP SCH ×2 (09:44→10:28)
[2022-01-01] MEDS: ENOXAPARIN 40 MG/0.4 ML SYRINGE SQ SCH (09:44)
[2022-01-01] MEDS: SENNOSIDES-DOCUSATE SODIUM 1 EACH TAB PO SCH (10:13)
--- NOTE | 2022-01-01 11:05 | P.PN ---
Subjective Progress Note Date: 12/31/21 Principal diagnosis: hypoxemia, on IO for metastatic NSCLC In f/u today pt has persistent SOB, stable, congested cough without much expectoration. She had diarrhea on admit but, this is slowing down, she is tolerating oral intake without nausea. She states she is still feeling weak. Objective - Vital Signs Vital signs: Vital Signs Temp 97.5 F L 12/31/21 04:50 Pulse 79 12/31/21 09:16 Resp 18 12/31/21 04:50 BP 133/81 12/31/21 04:50 Pulse Ox 98 12/31/21 04:50 Intake & Output 12/30/21 12/31/21 12/31/21 18:59 06:59 18:59 Intake Total 1440 900 Balance 1440 900 Intake: Intake, IV Titration 1200 900 Amount 0.9% NaCl with KCl 20 Meq 1200 900 /l 1,000 ml @ 100 mls/hr IV .Q10H TEN Rx#: [id number] Oral 240 Other: Voiding Method Toilet Toilet # Voids 4 4 - Constitutional General appearance: Present: average body habitus, cooperative, no acute distress - EENT Eyes: Present: anicteric sclerae, EOMI ENT: Present: hearing grossly normal - Respiratory Respiratory: right: wheezing, left: diminished - Cardiovascular Rhythm: regular Heart sounds: normal: S1, S2 Abnormal Heart Sounds: Absent: systolic murmur, diastolic murmur, rub, S3 Gallop, S4 Gallop, click, other - Peripheral edema leg Peripheral Edema: bilateral: None - Gastrointestinal General gastrointestinal: Present: normal bowel sounds, soft - Integumentary Integumentary: Present: normal - Neurologic Neurologic: Present: CNII-XII intact - Musculoskeletal Musculoskeletal: Present: generalized weakness, strength equal bilaterally - Psychiatric Psychiatric: Present: A&O x's 3, appropriate affect, intact judgment & insight - Labs CBC & Chem 7: 01/01/22 07:27 01/01/22 07:27 Labs: Microbiology - Last 24 Hours (Table) 12/28/21 14:23 Blood Culture - Preliminary Blood No Growth after 48 hours 12/28/21 14:23 Blood Culture - Preliminary Blood No Growth after 48 hours - Imaging and Cardiology Chest x-ray: report reviewed Assessment and Plan (1) Metastatic adenocarcinoma Narrative/Plan: Pt is s/p 2 doses of keytruda. This will be held until pt treated and improved from pulmonary symptoms. Abx and supportive medications per Pulmonary. Will have to also wait for pred to be tapered to 10mg or less to proceed with IO Pt is s/p 2 cycles of keytruda. Pseudoprogress vs true progression needs to be considered. Re-image once pt has tapered on steroids and she has completed treatment for post obstructive pneumonia/atelectasis. Current Visit: No Status: Acute Priority: Medium Code(s): C79.9 - SECONDARY MALIGNANT NEOPLASM OF UNSPECIFIED SITE SNOMED Code(s): 848806554299182 (2) General weakness Narrative/Plan: PT/OT encouraged. Encouraged pt to be out of bed with assistance so she maintains her strength to go home Current Visit: Yes Status: Acute Priority: High Code(s): R53.1 - WEAKNESS SNOMED Code(s): 62229522 (3) Hypoxemia Narrative/Plan: O2 sats>90% on 2.5-3L, stable Current Visit: Yes Status: Acute Code(s): R09.02 - HYPOXEMIA SNOMED Code(s): 026646726 (4) Hypercalcemia Narrative/Plan: Level WNL after hydration PTH noted to be low, most consistent with hypercalcemia of malignancy. Pt did not receive bisphosphonate or RankLigand inhibitor treatment. Will plan for this outpt if needed since her calcium normalized with hydration Current Visit: Yes Status: Acute Priority: High Code(s): E83.52 - HYPERCALCEMIA SNOMED Code(s): 61120497 Plan: Please hold senna for diarrhea. Monitor consistency and makeup of stool to ensure it is not just water. Doctor attests: I performed a history and physical examination of this patient, developed impression and plan of care, discussed with dictator. I agree with dictators note, documented as a scribe.
--- NOTE | 2022-01-01 12:21 | P.PN ---
Subjective Progress Note Date: 01/01/22 Principal diagnosis: hypoxemia, on IO for metastatic NSCLC In f/u today pt feeling better, she is sitting up at the bedside independently. SOB is stable. No other c/o today. Objective - Vital Signs Vital signs: Vital Signs Temp 98.4 F 01/01/22 07:50 Pulse 80 01/01/22 08:30 Resp 18 01/01/22 08:30 BP 145/96 01/01/22 07:50 Pulse Ox 92 L 01/01/22 10:21 Intake & Output 12/31/21 01/01/22 01/01/22 18:59 06:59 18:59 Intake Total 1200 Balance 1200 Intake: Intake, IV Titration 1200 Amount 0.9% NaCl with KCl 20 Meq 1200 /l 1,000 ml @ 100 mls/hr IV .Q10H TEN Rx#: [id number] Other: Voiding Method Toilet # Voids 4 3 - Constitutional General appearance: Present: average body habitus, cooperative, no acute distress - EENT Eyes: Present: anicteric sclerae, EOMI ENT: Present: hearing grossly normal - Respiratory Details: increased RR, E>I, no distress noted - Integumentary Integumentary: Present: normal - Neurologic Neurologic: Present: CNII-XII intact - Musculoskeletal Musculoskeletal: Present: generalized weakness, strength equal bilaterally - Psychiatric Psychiatric: Present: A&O x's 3, appropriate affect, intact judgment & insight - Labs CBC & Chem 7: 01/01/22 07:27 01/01/22 07:27 Labs: Abnormal Lab Results - Last 24 Hours (Table) 01/01/22 01/01/22 Range/Units 07:27 07:27 WBC 13.8 H (3.8-10.6) k/uL RBC 3.27 L (3.80-5.40) m/uL Hgb 8.8 L (11.4-16.0) gm/dL Hct 30.8 L (34.0-46.0) % MCHC 28.6 L (31.0-37.0) g/dL RDW 17.2 H (11.5-15.5) % Plt Count 548 H (150-450) k/uL Neutrophils # 11.3 H (1.3-7.7) k/uL Chloride 117 H (98-107) mmol/L Microbiology - Last 24 Hours (Table) 12/28/21 14:23 Blood Culture - Preliminary Blood No Growth after 72 hours 12/28/21 14:23 Blood Culture - Preliminary Blood No Growth after 72 hours Assessment and Plan (1) Metastatic adenocarcinoma Narrative/Plan: Pt is s/p 2 doses of keytruda. This will be held until pt treated and improved from pulmonary symptoms. Abx and supportive medications per Pulmonary. Will have to also wait for pred to be tapered to 10mg or less to proceed with IO. She is not due for treatment until 01/17. She does see Dr. Portillo before Pt is s/p 2 cycles of keytruda. Pseudoprogression vs true progression needs to be considered. Re-image once pt has tapered on steroids and she has completed treatment for post obstructive pneumonia/atelectasis. Current Visit: No Status: Acute Priority: Medium Code(s): C79.9 - SECONDARY MALIGNANT NEOPLASM OF UNSPECIFIED SITE SNOMED Code(s): 286949693968024 (2) General weakness Narrative/Plan: PT/OT encouraged. Encouraged pt to be out of bed with assistance so she maintains her strength to go home Current Visit: Yes Status: Acute Priority: High Code(s): R53.1 - WEAKNESS SNOMED Code(s): 13106605 (3) Hypoxemia Narrative/Plan: O2 sats>90% on 2.5-3L, stable Current Visit: Yes Status: Acute Code(s): R09.02 - HYPOXEMIA SNOMED Code(s): 134202716 (4) Hypercalcemia Narrative/Plan: Level WNL after hydration PTH noted to be low, most consistent with hypercalcemia of malignancy. Pt did not receive bisphosphonate or RankLigand inhibitor treatment. Will plan for this outpt if needed since her calcium normalized with hydration Current Visit: Yes Status: Acute Priority: High Code(s): E83.52 - HYPERCALCEMIA SNOMED Code(s): 98192062 Plan: Please hold senna for diarrhea. Monitor consistency and makeup of stool to ensure it is not just water. Ok from Onc standpoint to be discharged once cleared by Attending and Consulting Physicians Doctor attests: I performed a history and physical examination of this patient, developed impression and plan of care, discussed with dictator. I agree with dictators note, documented as a scribe.
[2022-01-01 13:17] VITALS: BP 148/84; PULSE 99; TEMP 98.6
[2022-01-02] MEDS ORDERED: PANTOPRAZOLE 40 MG TABLET PO SCH (07:30)
--- NOTE | 2022-01-03 10:43 | P.DS ---
Providers Date of admission: 12/29/21 14:30 Expected date of discharge: 01/01/22 Attending physician: Keenan Aggarwal Consults: 12/27/21 21:51 Consult Physician Urgent Consulting Provider: Benji Portillo Consult Reason/Comments: lung ca Do you want consulting provider notified?: Yes Consult Physician Urgent Consulting Provider: Casey Lorenzana Consult Reason/Comments: lung ca, hypoxemia Do you want consulting provider notified?: Yes Primary care physician: Keenan Aggarwal Hospital Course: Final diagnoses: Acute hypoxic respiratory failure, multifactorial secondary to progressive right upper lobe lung cancer, suspected postobstructive atelectasis 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 Evaluated by oncology and pulmonary. Maintained on nebulized bronchodilators, Symbicort antibiotics, IV fluid hydration. Significant clinical improvement. Breathing improved Afebrile, vital signs stable. Cleared by pulmonary and oncology for discharge. Patient being evaluated for home oxygen. Patient will be discharged home today in a stable condition with guarded prognosis. The impression and plan of care has been dictated as directed. : I performed a history and examination of this patient, discussed the same with the dictator. I agree with the dictator's note ,documented as a scribe. Any additional findings or plans will be noted. Patient Condition at Discharge: Stable Plan - Discharge Summary New Discharge Prescriptions: New Amoxic-Pot Clav 875-125Mg [Augmentin 875-125] 1 each PO Q12HR #10 tab Budesonide-Formot 160-4.5 Mcg [Symbicort 160-4.5 Mcg Inhaler] 2 puff INHALATION RT-BID #1 inh Levothyroxine Sodium 100 mcg PO DAILY #30 tablet predniSONE 10 mg PO DIRECTED #18 tab HYDROcodone/APAP 5-325MG [[place] 5-325] 1 each PO Q6H PRN 3 Days #12 tab PRN Reason: Moderate Pain Sennosides-Docusate Sodium [Senokot-S] 2 each PO BID tab Continue Albuterol Sulfate [Proair Hfa] 2 puff INHALATION RT-Q6H PRN PRN Reason: Shortness Of Breath Lisinopril [Zestril] 5 mg PO HS Pantoprazole [Protonix] 40 mg PO AC-BRKFST PRN PRN Reason: gerds ondansetron HCL [Zofran] 8 mg PO Q6H PRN PRN Reason: Nausea Multivitamins, Thera [Multivitamin (formulary)] 1 tab PO DAILY Montelukast Sodium [Singulair] 10 mg PO HS Cholecalciferol [Vitamin D3 (25 Mcg = 1000 Iu)] 25 mcg PO DAILY Morphine Sulfate ER [Ms Contin] 15 mg PO BID Discontinued Levothyroxine Sodium [Synthroid] 125 mcg PO DAILY Discharge Medication List Albuterol Sulfate [Proair Hfa] 2 puff INHALATION RT-Q6H PRN 09/25/21 [History] Montelukast Sodium [Singulair] 10 mg PO HS 09/25/21 [History] Multivitamins, Thera [Multivitamin (formulary)] 1 tab PO DAILY 09/25/21 [History] Cholecalciferol [Vitamin D3 (25 Mcg = 1000 Iu)] 25 mcg PO DAILY 10/25/21 [History] Lisinopril [Zestril] 5 mg PO HS 12/27/21 [History] Morphine Sulfate ER [Ms Contin] 15 mg PO BID 12/27/21 [History] Pantoprazole [Protonix] 40 mg PO AC-BRKFST PRN 12/27/21 [History] ondansetron HCL [Zofran] 8 mg PO Q6H PRN 12/27/21 [History] Amoxic-Pot Clav 875-125Mg [Augmentin 875-125] 1 each PO Q12HR #10 tab 01/01/22 [Rx] Budesonide-Formot 160-4.5 Mcg [Symbicort 160-4.5 Mcg Inhaler] 2 puff INHALATION RT-BID #1 inh 01/01/22 [Rx] HYDROcodone/APAP 5-325MG [[place] 5-325] 1 each PO Q6H PRN 3 Days #12 tab 01/01/22 [Rx] Levothyroxine Sodium 100 mcg PO DAILY #30 tablet 01/01/22 [Rx] Sennosides-Docusate Sodium [Senokot-S] 2 each PO BID tab 01/01/22 [Rx] predniSONE 10 mg PO DIRECTED #18 tab 01/01/22 [Rx] Follow up Appointment(s)/Referral(s): Keenan Aggarwal DO [Primary Care Provider] - 3 Days (The office is closed for lunch I will try and call again.) Ricardo Peña DO [Doctor of Osteopathic Medicine] - 01/17/22 3:00 pm (You will see adolfo.) Benji Portillo MD [STAFF PHYSICIAN] - 01/08/22 3:30 pm Ambulatory/Diagnostic Orders: Basic Metabolic Panel [LAB.AMB] Time Frame: 3 Days, Location: None Selected Basic Metabolic Panel [LAB.AMB] Time Frame: 3 Days, Location: None Selected Patient Instructions/Handouts: Hydrocodone/Acetaminophen (By mouth), Levothyroxine (By mouth), Amoxicillin/Clavulanate Potassium (By mouth), Budesonide/Formoterol (By breathing), Hypoxemia (DC) Activity/Diet/Wound Care/Special Instructions: O2 Sat on RA after ambulation (Recheck) : Discharge Disposition: HOME SELF-CARE
== END 2022-01-01 15:03 | disposition home or self-care (01) | DRG 180 ==
LOC: EC 16:37 → 5NMEDONC 21:59 → OBSVTOIN 12-29 14:30
PROVIDERS: ADMIT Family Medicine; ATTEND Family Medicine
DX: C34.11 Malignant neoplasm of upper lobe, right bronchus or lung (principal); J96.01 Acute respiratory failure with hypoxia; C79.51 Secondary malignant neoplasm of bone; N39.0 Urinary tract infection, site not specified; J98.11 Atelectasis; J43.9 Emphysema, unspecified; Z20.822 Contact with and (suspected) exposure to COVID-19; B95.2 Enterococcus as the cause of diseases classified elsewhere; J40 Bronchitis, not specified as acute or chronic; K21.9 Gastro-esophageal reflux disease without esophagitis; Z92.3 Personal history of irradiation; Z85.118 Personal history of other malignant neoplasm of bronchus and lung; I10 Essential (primary) hypertension; F17.210 Nicotine dependence, cigarettes, uncomplicated; E03.9 Hypothyroidism, unspecified; E87.6 Hypokalemia; Z79.890 Hormone replacement therapy; Z88.8 Allergy status to other drugs, medicaments and biological substances; E83.52 Hypercalcemia; Z79.52 Long term (current) use of systemic steroids; Z79.899 Other long term (current) drug therapy; Z86.711 Personal history of pulmonary embolism; Z90.710 Acquired absence of both cervix and uterus; Z83.3 Family history of diabetes mellitus
CPT/HCPCS: 36415; 71045; 71275; 80048; 80053; 81001; 82024; 82306; 82533; 82607; 82728; 82746; 83540; 83550; 83690; 83735; 83880; 83921; 83970; 84132; 84145; 84439; 84443; 84484; 85025; 85610; 85730; 87040; 87077; 87086; 87186; 87635; 93005; 94640; 94760; 99285

== ENCOUNTER 2022-01-17 16:20 | Inpatient (IN) | payer MEDICARE ==
--- NOTE | 2022-01-17 16:52 | ED ---
General Adult HPI - General Chief complaint: Shortness of Breath Stated complaint: Low O2 Time Seen by Provider: 01/17/22 16:33 Source: patient Mode of arrival: wheelchair Limitations: no limitations - History of Present Illness Initial comments: Dictation was produced using [employer] dictation software. please excuse any grammatical, word or spelling errors. Chief Complaint: 66-year-old female past medical history of lung cancer presents to the emergency Department for hypoxia History of Present Illness: 66-year-old female she was redirected to the emergency department from [facility] for hypoxia. She allegedly had oxygen levels measuring a 70 percents. She was given a cancer infusion and an iron infusion prior to coming here. Patient reports that she was here approximately 2 weeks ago for the same thing. She was admitted to the hospital and was evaluated by pulmonology and oncology and discharged with diagnosis of multifactorial hypoxia. States she wasn't discharged with any home oxygen. Patient states she feels at baseline. The ROS documented in this emergency department record has been reviewed and confirmed by me. Those systems with pertinent positive or negative responses have been documented in the HPI. All other systems are other negative and/or noncontributory. PHYSICAL EXAM: General Impression: Alert and oriented x3, not in acute distress HEENT: Normocephalic atraumatic, extra-ocular movements intact, pupils equal and reactive to light bilaterally, mucous membranes moist. Cardiovascular: Heart regular rate and rhythm Chest: Able to complete full sentences, no retractions, no tachypnea Abdomen: abdomen soft, non-tender, non-distended, no organomegaly Musculoskeletal: Pulses present and equal in all extremities, no peripheral edema Motor: no focal deficits noted Neurological: CN II-XII grossly intact, no focal motor or sensory deficits noted Skin: Intact with no visualized rashes Psych: Normal affect and mood ED course: 66-year-old male presents to the emergency department for hypoxia. She was just admitted to the hospital for the same thing 2 weeks ago and discharged after medical monitoring and evaluation by pulmonology and oncology. Vital signs upon arrival shows oxygen level 84% on room air, heart rate of 105 cumbersome vital signs within acceptable limits. Laboratory evaluation obtained. CBC within acceptable limits. Coag panel is unremarkable. Potassium 2.4. 4 panel by PCR is negative. Chest x-ray shows worsening cavitation in the right upper lobe. Patient was seen here 2 weeks ago for the same issue. She was admitted and had full workup including CT angios the chest. This point I do not feel it necessary to rescan the patient considering that she is well-appearing, not dyspneic and satting well with minimal nasal cannula oxygen. Patient be admitted to Dr. Keenan Aggarwal. Pulmonology and oncology will be consulted again. EKG interpretation: Ventricular rate 99, sinus rhythm,. 137, QS 93, QTC 316. No [place] prolongation, no QTC prolongation, no ST or T-wave changes noted. EKG compared to 11/28/2021 showing no changes. Overall, this EKG is unremarkable - Related Data Home Medications Medication Instructions Recorded Confirmed Albuterol Sulfate [Proair Hfa] 2 puff INHALATION RT-Q6H PRN 09/25/21 01/17/22 Montelukast Sodium [Singulair] 10 mg PO HS 09/25/21 01/17/22 Multivitamins, Thera [Multivitamin 1 tab PO DAILY 09/25/21 01/17/22 (formulary)] Cholecalciferol [Vitamin D3 (25 25 mcg PO DAILY 10/25/21 01/17/22 Mcg = 1000 Iu)] Lisinopril [Zestril] 5 mg PO HS 12/27/21 01/17/22 ondansetron HCL [Zofran] 8 mg PO Q6H PRN 12/27/21 01/17/22 HYDROcodone/APAP 5-325MG [[place] 1 tab PO Q6H PRN 01/17/22 01/17/22 5-325] Lisinopril [Zestril] 10 mg PO DAILY 01/17/22 01/17/22 Zinc Gluconate [Zinc] 50 mg PO DAILY 01/17/22 01/17/22 Previous Rx's Medication Instructions Recorded Levothyroxine Sodium 100 mcg PO DAILY #30 tablet 01/01/22 Allergies Allergy/AdvReac Type Severity Reaction Status Date / Time procaine [From Novocain] Allergy Swelling Verified 01/17/22 17:42 throat Review of Systems ROS Statement: Those systems with pertinent positive or pertinent negative responses have been documented in the HPI. ROS Other: All systems not noted in ROS Statement are negative. 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, pt states no BM past 2 weeks since PET/cat scan, hypothyroid, bilateral pedal edema History of Any Multi-Drug Resistant Organisms: None Reported Past Surgical History: Hysterectomy Additional Past Surgical History / Comment(s): 09/27/21 bronchoscopy Past Anesthesia/Blood Transfusion Reactions: No Reported Reaction Past Psychological History: No Psychological Hx Reported Smoking Status: Former smoker Past Alcohol Use History: None Reported Past Drug Use History: None Reported - Past Family History Father History Unknown: Yes Family Medical History: No Reported History Mother Family Medical History: Diabetes Mellitus Additional Family Medical History / Comment(s): Mother had a "bad heart" and at the age of 56yrs General Exam Limitations: no limitations Course Vital Signs 01/17/22 01/17/22 01/17/22 16:22 16:55 18:03 Temperature 98.2 F Pulse Rate 105 H 98 105 H Respiratory 20 18 18 Rate Blood Pressure 141/84 129/85 130/73 O2 Sat by Pulse 84 L 95 93 L Oximetry Medical Decision Making - Lab Data Result diagrams: 01/17/22 17:23 01/17/22 17:23 Lab Results 01/17/22 01/17/22 01/17/22 Range/Units 16:48 17:23 17:23 WBC 13.2 H (3.8-10.6) k/uL RBC 3.60 L (3.80-5.40) m/uL Hgb 9.6 L (11.4-16.0) gm/dL Hct 30.9 L (34.0-46.0) % MCV 85.7 D (80.0-100.0) fL MCH 26.6 (25.0-35.0) pg MCHC 31.1 (31.0-37.0) g/dL RDW 17.7 H (11.5-15.5) % Plt Count 493 H (150-450) k/uL MPV 6.5 Neutrophils % 82 % Lymphocytes % 10 % Monocytes % 3 % Eosinophils % 3 % Basophils % 0 % Neutrophils # 10.8 H (1.3-7.7) k/uL Lymphocytes # 1.3 (1.0-4.8) k/uL Monocytes # 0.4 (0-1.0) k/uL Eosinophils # 0.4 (0-0.7) k/uL Basophils # 0.0 (0-0.2) k/uL Hypochromasia Marked Poikilocytosis Slight Anisocytosis Slight PT 10.9 (9.0-12.0) sec INR 1.0 (<1.2) APTT 23.2 (22.0-30.0) sec Sodium (137-145) mmol/L Potassium (3.5-5.1) mmol/L Chloride (98-107) mmol/L Carbon Dioxide (22-30) mmol/L Anion Gap mmol/L BUN (7-17) mg/dL Creatinine (0.52-1.04) mg/dL Est GFR (CKD-EPI)AfAm (>60 ml/min/1.73 sqM) Est GFR (CKD-EPI)NonAf (>60 ml/min/1.73 sqM) Glucose (74-99) mg/dL Calcium (8.4-10.2) mg/dL Magnesium (1.6-2.3) mg/dL Total Bilirubin (0.2-1.3) mg/dL AST (14-36) U/L ALT (4-34) U/L Alkaline Phosphatase (38-126) U/L Total Protein (6.3-8.2) g/dL Albumin (3.5-5.0) g/dL Influenza Type A (PCR) Not Detected (Not Detectd) Influenza Type B (PCR) Not Detected (Not Detectd) RSV (PCR) Not Detected (Not Detectd) SARS-CoV-2 (PCR) Not Detected (Not Detectd) 01/17/22 Range/Units 17:23 WBC (3.8-10.6) k/uL RBC (3.80-5.40) m/uL Hgb (11.4-16.0) gm/dL Hct (34.0-46.0) % MCV (80.0-100.0) fL MCH (25.0-35.0) pg MCHC (31.0-37.0) g/dL RDW (11.5-15.5) % Plt Count (150-450) k/uL MPV Neutrophils % % Lymphocytes % % Monocytes % % Eosinophils % % Basophils % % Neutrophils # (1.3-7.7) k/uL Lymphocytes # (1.0-4.8) k/uL Monocytes # (0-1.0) k/uL Eosinophils # (0-0.7) k/uL Basophils # (0-0.2) k/uL Hypochromasia Poikilocytosis Anisocytosis PT (9.0-12.0) sec INR (<1.2) APTT (22.0-30.0) sec Sodium 135 L (137-145) mmol/L Potassium 2.4 L* (3.5-5.1) mmol/L Chloride 100 (98-107) mmol/L Carbon Dioxide 29 (22-30) mmol/L Anion Gap 6 mmol/L BUN 16 (7-17) mg/dL Creatinine 0.84 (0.52-1.04) mg/dL Est GFR (CKD-EPI)AfAm 83 (>60 ml/min/1.73 sqM) Est GFR (CKD-EPI)NonAf 72 (>60 ml/min/1.73 sqM) Glucose 95 (74-99) mg/dL Calcium 10.0 (8.4-10.2) mg/dL Magnesium 2.3 (1.6-2.3) mg/dL Total Bilirubin 1.1 (0.2-1.3) mg/dL AST 18 (14-36) U/L ALT 10 (4-34) U/L Alkaline Phosphatase 116 (38-126) U/L Total Protein 7.0 (6.3-8.2) g/dL Albumin 2.8 L (3.5-5.0) g/dL Influenza Type A (PCR) (Not Detectd) Influenza Type B (PCR) (Not Detectd) RSV (PCR) (Not Detectd) SARS-CoV-2 (PCR) (Not Detectd) Disposition Clinical Impression: Hypoxia Disposition: ADMITTED IP TO THIS HOSP Condition: Serious Referrals: Keenan Aggarwal DO [Primary Care Provider] - 1-2 days
--- NOTE | 2022-01-17 17:15 | XR ---
EXAMINATION TYPE: XR chest 1V portable DATE OF EXAM: 01/17/2022 COMPARISON: 12/30/2021 HISTORY: Lung cancer with shortness of breath. TECHNIQUE: Single frontal view of the chest is obtained. FINDINGS: There is interval increased cavitation of known large right upper lobe mass with correspon ding decreased area of masslike consolidation. Persistent surrounding mild interstitial opacity. No s ignificant pleural effusion, or pneumothorax seen. The cardiac silhouette size is within normal limi ts. The osseous structures are intact. IMPRESSION: Interval increased cavitation of known large right upper lobe mass. Correlate clinically with treatment history versus progression of disease.
[2022-01-17 17:33] LABS: Anisocytosis Slight; Basophils % (A) 0 %; Eosinophils # (A) 0.4 k/uL (0-0.7); Eosinophils % (A) 3 %; HCT 30.9 % (34.0-46.0); HGB 9.6 gm/dL (11.4-16.0); Hypochromasia Marked; Lymphocytes # (A) 1.3 k/uL (1.0-4.8); Lymphocytes % (A) 10 %; MCH 26.6 pg (25.0-35.0); MCHC 31.1 g/dL (31.0-37.0); Mean Platelet Volume 6.5; Monocytes # (A) 0.4 k/uL (0-1.0); Monocytes % (A) 3 %; Neutrophils # (A) 10.8 k/uL (1.3-7.7); Neutrophils % (A) 82 %; Platelet Count 493 k/uL (150-450); Poikilocytosis Slight; RDW 17.7 % (11.5-15.5); WBC 13.2 k/uL (3.8-10.6)
[2022-01-17 17:41] LABS: Albumin 2.8 g/dL (3.5-5.0); Magnesium 2.3 mg/dL (1.6-2.3); Total Bilirubin 1.1 mg/dL (0.2-1.3)
[2022-01-17 17:45] LABS: Potassium 2.4 mmol/L (3.5-5.1)
[2022-01-17 17:51] LABS: MCV 85.7 fL (80.0-100.0)
[2022-01-17 17:52] LABS: Partial Thromboplastin Time 23.2 sec (22.0-30.0); Prothrombin Time 10.9 sec (9.0-12.0)
[2022-01-17 18:00] LABS: Influenza A Not Detected (Not Detectd); Influenza B Not Detected (Not Detectd)
[2022-01-17] MEDS: POTASSIUM CHLORIDE 20 MEQ in WATER FOR INJECTION 1 100ML.BAG IVPB SCH ×2 (18:37→20:43)
[2022-01-17] MEDS ORDERED: NALOXONE 0.4 MG/ML 1 ML VIAL IV PRN (19:05)
[2022-01-17] MEDS: SODIUM CHLORIDE 0.9% 1,000 ML IV SCH (19:18)
[2022-01-17] MEDS ORDERED: ALBUTEROL NEBULIZED 2.5 MG/3 ML INHALATION PRN (21:39)
[2022-01-17] MEDS ORDERED: ONDANSETRON 4 MG TAB PO PRN (21:39)
[2022-01-17] MEDS: lisinopriL 5 MG TAB PO SCH (21:54)
[2022-01-17] MEDS: HYDROcodone/APAP 5-325MG 1 EACH TAB PO PRN (21:54)
[2022-01-17] MEDS: MONTELUKAST 10 MG TAB PO SCH (21:54)
[2022-01-18] MEDS: HYDROcodone/APAP 5-325MG 1 EACH TAB PO PRN ×3 (04:38→21:21)
[2022-01-18] MEDS: LEVOTHYROXINE 100 MCG TAB PO SCH (06:24)
[2022-01-18 07:09] LABS: Anisocytosis Slight; HCT 28.3 % (34.0-46.0); HGB 8.4 gm/dL (11.4-16.0); Hypochromasia Marked; MCH 26.2 pg (25.0-35.0); MCHC 29.6 g/dL (31.0-37.0); MCV 88.3 fL (80.0-100.0); Platelet Count 447 k/uL (150-450); Poikilocytosis Slight; RDW 17.6 % (11.5-15.5); WBC 11.9 k/uL (3.8-10.6)
[2022-01-18 07:26] LABS: Albumin 2.4 g/dL (3.5-5.0); Calcium 9.2 mg/dL (8.4-10.2); Potassium 2.8 mmol/L (3.5-5.1); Total Bilirubin 0.6 mg/dL (0.2-1.3); Total Protein 6.2 g/dL (6.3-8.2)
[2022-01-18] MEDS: lisinopriL 10 MG TAB PO SCH (07:52)
[2022-01-18] MEDS: MULTIVITAMINS, THERA 1 EACH TAB PO SCH (07:52)
[2022-01-18] MEDS: CHOLECALCIFEROL 25 MCG (1000 IU) TABLET PO SCH (07:52)
[2022-01-18] MEDS: ZINC SULFATE 220 MG CAP PO SCH (07:52)
[2022-01-18] MEDS ORDERED: POTASSIUM CHLORIDE ER 20 MEQ TAB.ER PO STA (07:58)
--- NOTE | 2022-01-18 11:49 | P.CNPUL ---
History of Present Illness Consult date: 01/18/22 Requesting physician: Keenan Aggarwal Reason for consult: dyspnea, cough, COPD, hypoxemia, lung mass, abnormal CXR/CT Chief complaint: Shortness of breath. History of present illness: Pulmonary consult dated 01/18/2022. 66-year-old female seen in the emergency room, yesterday, January 17, because of shortness of breath. The patient was apparently over at the infusion center at [facility], and apparently was short of breath, and had saturations in the 70 range. For that reason, she was directed to the emergency room. She apparently was receiving an iron infusion, and her chemotherapy. The patient was recently inpatient, between December 28, and January 01, for similar episode of shortness of breath. Patient was discharged home, not on any oxygen. She apparently tells me that she did not qualify. The patient has a history of recently diagnosed adenocarcinoma of the right upper lobe. It is metastatic, as she has spinal metastasis. The procedure and making the diagnosis was done by my partner. Currently, she is on saline at 20 mL an hour, and nasal O2 at 4 L/m. She has a history of metastatic adenocarcinoma of the lung, COPD, GERD, hypertension, and hypothyroidism. The patient is a former smoker. White count 11.9, hemoglobin 8.4, hematocrit 28.3, and platelet count 447,000. Sodium 136, potassium 2.8, chlorides 106, CO2 25, anion gap 5, BUN 16, creatinine 0.82. Albumin is 2.4. Testing for coronavirus was negative. On chest x-ray, the patient has a dense consolidation in the right upper lobe, which appears to be a bit worse, and was previously present. Review of Systems REVIEW OF SYSTEMS: CONSTITUTIONAL: [Negative.] NEUROLOGIC: [ Negative.] HEENT: [ Negative.] CARDIAC: [Negative.] PULMONARY: Shortness of breath. GI: [Negative.] : [Negative.] RHEUMATOLOGIC: [ Negative.] IMMUNOLOGIC: [ Negative.] ENDOCRINE: [Negative. ] DERMATOLOGIC: [Negative.] 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, pt states no BM past 2 weeks since PET/cat scan, hypothyroid, bilateral pedal edema. Chemo treatment 01/17/2022 History of Any Multi-Drug Resistant Organisms: None Reported Past Surgical History: Hysterectomy Additional Past Surgical History / Comment(s): 09/27/21 bronchoscopy Past Anesthesia/Blood Transfusion Reactions: No Reported Reaction Past Psychological History: No Psychological Hx Reported Additional Psychological History / Comment(s): Pt resides with grandson, son and other family. Pt recently started using cane to ambulate. She has not driven since recent diagnosis. Pt does want some DME, a BSC/walker/and hospital bed. Smoking Status: Former smoker Past Alcohol Use History: None Reported Additional Past Alcohol Use History / Comment(s): Pt started smoking in her teens and quit 08/2021. Past Drug Use History: None Reported Additional Drug Use History / Comment(s): Pt has not smoked marijuana in several months. Used for pain - Past Family History Father History Unknown: Yes Family Medical History: No Reported History Mother Family Medical History: Diabetes Mellitus Additional Family Medical History / Comment(s): Mother had a "bad heart" and d at the age of 56yrs Medications and Allergies Home Medications Medication Instructions Recorded Confirmed Type Albuterol Sulfate [Proair Hfa] 2 puff INHALATION RT-Q6H PRN 09/25/21 01/17/22 History Montelukast Sodium [Singulair] 10 mg PO HS 09/25/21 01/17/22 History Multivitamins, Thera [Multivitamin 1 tab PO DAILY 09/25/21 01/17/22 History (formulary)] Cholecalciferol [Vitamin D3 (25 25 mcg PO DAILY 10/25/21 01/17/22 History Mcg = 1000 Iu)] Lisinopril [Zestril] 5 mg PO HS 12/27/21 01/17/22 History ondansetron HCL [Zofran] 8 mg PO Q6H PRN 12/27/21 01/17/22 History Levothyroxine Sodium 100 mcg PO DAILY #30 tablet 01/01/22 01/17/22 Rx HYDROcodone/APAP 5-325MG [[place] 1 tab PO Q6H PRN 01/17/22 01/17/22 History 5-325] Lisinopril [Zestril] 10 mg PO DAILY 01/17/22 01/17/22 History Zinc Gluconate [Zinc] 50 mg PO DAILY 01/17/22 01/17/22 History Allergies Allergy/AdvReac Type Severity Reaction Status Date / Time procaine [From Novocain] Allergy Swelling Verified 01/17/22 17:42 throat Physical Exam Osteopathic Statement: *. No significant issues noted on an osteopathic structural exam other than those noted in the History and Physical/Consult. Vitals: Vital Signs Temp Pulse Pulse Pulse Resp BP BP 01/18/22 11:26 18 01/18/22 11:12 97.6 F 109 H 18 156/88 01/18/22 08:00 18 01/18/22 07:18 98.0 F 93 16 132/84 01/18/22 04:00 98.6 F 98 17 139/77 01/18/22 01:28 104 H 17 01/18/22 00:00 97.7 F 104 H 17 148/78 01/17/22 20:09 98.3 F 97 24 134/85 01/17/22 20:00 98.0 F 95 17 133/76 01/17/22 19:23 98.0 F 95 17 133/76 01/17/22 19:21 94 18 122/65 01/17/22 18:03 105 H 18 130/73 01/17/22 16:55 98 18 129/85 01/17/22 16:22 98.2 F 105 H 20 141/84 Pulse Ox 01/18/22 11:26 01/18/22 11:12 94 L 01/18/22 08:00 01/18/22 07:18 91 L 01/18/22 04:00 97 01/18/22 01:28 01/18/22 00:00 93 L 01/17/22 20:09 99 01/17/22 20:00 96 01/17/22 19:23 96 01/17/22 19:21 95 01/17/22 18:03 93 L 01/17/22 16:55 95 01/17/22 16:22 84 L Intake and Output 01/17/22 01/18/22 01/18/22 22:59 06:59 14:59 Intake Total 240 Balance 240 Intake: Oral 240 Other: # Voids 0 # Bowel Movements 0 Weight 49.895 kg 51.2 kg No acute distress, oriented 3. Currently on 4 L nasal oxygen. Saturations are 94%. HEENT examination is grossly unremarkable. Neck supple. Full range of motion. No adenopathy thyromegaly or neck vein distention. Cardiovascular examination reveals regular rhythm rate. S1-S2 normal. No S3 or S4. No discernible murmur noted. Heart rate 100 bpm. Lungs reveal mild scattered rhonchi. Mild expiratory wheezes. No crackles. Breath sounds equal bilaterally but diminished throughout. Saturations are 94% on 4 L. Abdomen soft bowel sounds are heard. No masses or tenderness. Extremities are intact. No cyanosis clubbing or edema. Skin is without rash or lesion. Neurologic examination is brief but nonfocal. Results - Laboratory Findings CBC and BMP: 01/18/22 06:15 01/18/22 06:15 PT/INR, D-dimer PT 10.9 sec (9.0-12.0) 01/17/22 17:23 INR 1.0 (<1.2) 01/17/22 17:23 Abnormal lab findings: Abnormal Labs 01/17/22 01/17/22 01/18/22 17:23 17:23 06:15 WBC 13.2 H 11.9 H RBC 3.60 L 3.20 L Hgb 9.6 L 8.4 L Hct 30.9 L 28.3 L MCHC 29.6 L RDW 17.7 H 17.6 H Plt Count 493 H Neutrophils # 10.8 H Sodium 135 L Potassium 2.4 L* Glucose Total Protein Albumin 2.8 L 01/18/22 06:15 WBC RBC Hgb Hct MCHC RDW Plt Count Neutrophils # Sodium 136 L Potassium 2.8 L Glucose 100 H Total Protein 6.2 L Albumin 2.4 L - Diagnostic Findings Chest x-ray: image reviewed Assessment and Plan Assessment: Advanced non-small cell lung cancer, adenocarcinoma, with spinal metastasis. COPD. Previous heavy tobacco use. History of hypertension. History of hypothyroidism. Gastroesophageal reflux disease. Plan: Plan dated 01/18/2022. Currently, the patient appears to be very comfortable. She does not appear to be any distress. There is no audible wheezing, use of accessory muscles, or conversational dyspnea. She will be placed on DuoNeb's, and Symbicort. Overall prognosis remains guarded. Additional recommendations are made. Patient could be considered for discharge. She feels like she needs oxygen although apparently she does not qualify for it. I will also place her on a Medrol Dosepak. Time with Patient: Greater than 30
[2022-01-18] MEDS: methylPREDNISolone 4 MG TAB TAPER PO SCH (13:38)
[2022-01-18] MEDS ORDERED: Potassium Replacement Protocol 1 EACH MISC MISCELLANE PRN (15:16)
[2022-01-18] MEDS: IPRATROPIUM-ALBUTEROL 3 ML NEB INHALATION SCH ×3 (16:46→21:28)
[2022-01-18 17:13] LABS: African American GFR (CKD) 88 (>60 ml/min/1.73 sqM); Anion Gap 7 mmol/L; Blood Urea Nitrogen 16 mg/dL (7-17); Calcium 9.2 mg/dL (8.4-10.2); Carbon Dioxide 24 mmol/L (22-30); Chloride 103 mmol/L (98-107); Glucose 90 mg/dL (74-99); Non-African American GFR(CKD) 77 (>60 ml/min/1.73 sqM); Potassium 2.9 mmol/L (3.5-5.1); Sodium 134 mmol/L (137-145)
[2022-01-18] MEDS: POTASSIUM CHLORIDE ER 20 MEQ TAB.ER PO SCH ×3 (17:30→21:22)
--- NOTE | 2022-01-18 19:28 | P.CONS ---
History of Present Illness - Reason for Consult Consult date: 01/18/22 Immune therapy for cancer Requesting physician: Santana Hall - History of Present Illness Jud is referred by Dr Lorenzana after recent CT Scan and bronchoscopy revealed Adenocarcinoma of lung She stated having increasing cough X 6-12 months, had CXR > CT Scan > RUL 7.9 cm mass with R hilar & Pre-carinal lymphadenopathy. PET Scan: Highly supicious RUL and lymphadenopathy, as well as, L1 metastatic lesion. C/O increasing back pain X 2 months, Tyleno+Motrin not enough for pain control. Has anorexia & weight loss of 30-40 LBS X 3-6 months. She smoked 1 PPD X 45 years, quit 1 months ago. 11/08/21: C/O back pain > significantly improved, taking Marlton infrequently, C/O fatigue 01/08/22: tolerating Keytruda well, has minimal back pain, appetite improved, no further weight loss. She is status post cycle 3 of Keytruda immune therapy She was recently was discharged from the hospital for one in the same, however was not discharged with oxygen for home as she improved. Unfortunetly after two days at home she again became hypoxic in the 70s and 80s on room air and was re=admitted Review of Systems All systems: negative Constitutional: Reports as per HPI 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, pt states no BM past 2 weeks since PET/cat scan, hypothyroid, bilateral pedal edema. Chemo treatment 01/17/2022 History of Any Multi-Drug Resistant Organisms: None Reported Past Surgical History: Hysterectomy Additional Past Surgical History / Comment(s): 09/27/21 bronchoscopy Past Anesthesia/Blood Transfusion Reactions: No Reported Reaction Past Psychological History: No Psychological Hx Reported Additional Psychological History / Comment(s): Pt resides with grandson, son and other family. Pt recently started using cane to ambulate. She has not driven since recent diagnosis. Pt does want some DME, a BSC/walker/and hospital bed. Smoking Status: Former smoker Past Alcohol Use History: None Reported Additional Past Alcohol Use History / Comment(s): Pt started smoking in her teens and quit 08/2021. Past Drug Use History: None Reported Additional Drug Use History / Comment(s): Pt has not smoked marijuana in several months. Used for pain - Past Family History Father History Unknown: Yes Family Medical History: No Reported History Mother Family Medical History: Diabetes Mellitus Additional Family Medical History / Comment(s): Mother had a "bad heart" and at the age of 56yrs Medications and Allergies Home Medications Medication Instructions Recorded Confirmed Type Albuterol Sulfate [Proair Hfa] 2 puff INHALATION RT-Q6H PRN 09/25/21 01/17/22 History Montelukast Sodium [Singulair] 10 mg PO HS 09/25/21 01/17/22 History Multivitamins, Thera [Multivitamin 1 tab PO DAILY 09/25/21 01/17/22 History (formulary)] Cholecalciferol [Vitamin D3 (25 25 mcg PO DAILY 10/25/21 01/17/22 History Mcg = 1000 Iu)] Lisinopril [Zestril] 5 mg PO HS 12/27/21 01/17/22 History ondansetron HCL [Zofran] 8 mg PO Q6H PRN 12/27/21 01/17/22 History Levothyroxine Sodium 100 mcg PO DAILY #30 tablet 01/01/22 01/17/22 Rx HYDROcodone/APAP 5-325MG [Marlton 1 tab PO Q6H PRN 01/17/22 01/17/22 History 5-325] Lisinopril [Zestril] 10 mg PO DAILY 01/17/22 01/17/22 History Zinc Gluconate [Zinc] 50 mg PO DAILY 01/17/22 01/17/22 History Allergies Allergy/AdvReac Type Severity Reaction Status Date / Time procaine [From Novocain] Allergy Swelling Verified 01/17/22 17:42 throat Physical Exam Vitals: Vital Signs Temp Pulse Pulse Pulse Resp BP BP 01/18/22 11:26 18 01/18/22 11:12 97.6 F 109 H 18 156/88 01/18/22 08:00 18 01/18/22 07:18 98.0 F 93 16 132/84 01/18/22 04:00 98.6 F 98 17 139/77 01/18/22 01:28 104 H 17 01/18/22 00:00 97.7 F 104 H 17 148/78 01/17/22 20:09 98.3 F 97 24 134/85 01/17/22 20:00 98.0 F 95 17 133/76 01/17/22 19:23 98.0 F 95 17 133/76 01/17/22 19:21 94 18 122/65 01/17/22 18:03 105 H 18 130/73 01/17/22 16:55 98 18 129/85 01/17/22 16:22 98.2 F 105 H 20 141/84 Pulse Ox 01/18/22 11:26 01/18/22 11:12 94 L 01/18/22 08:00 01/18/22 07:18 91 L 01/18/22 04:00 97 01/18/22 01:28 01/18/22 00:00 93 L 01/17/22 20:09 99 01/17/22 20:00 96 01/17/22 19:23 96 01/17/22 19:21 95 01/17/22 18:03 93 L 01/17/22 16:55 95 01/17/22 16:22 84 L Intake and Output 01/17/22 01/18/22 01/18/22 22:59 06:59 14:59 Intake Total 240 Balance 240 Intake: Oral 240 Other: # Voids 0 # Bowel Movements 0 Weight 49.895 kg 51.2 kg 51.2 kg - Constitutional General appearance: Present: average body habitus, cooperative, no acute distress - EENT Eyes: Present: anicteric sclerae, EOMI ENT: Present: hearing grossly normal - Respiratory Details: resp even and unlabored - Cardiovascular Rhythm: regular Heart sounds: normal: S1, S2 Abnormal Heart Sounds: Absent: systolic murmur, diastolic murmur, rub, S3 Gallop, S4 Gallop, click, other - Peripheral edema leg Peripheral Edema: bilateral: None - Gastrointestinal General gastrointestinal: Present: normal bowel sounds, soft - Neurologic Neurologic: Present: CNII-XII intact - Musculoskeletal Musculoskeletal: Present: generalized weakness, strength equal bilaterally - Psychiatric Psychiatric: Present: A&O x's 3, appropriate affect, intact judgment & insight Results CBC & Chem 7: 01/18/22 06:15 01/18/22 15:15 Labs: Abnormal Lab Results - Last 24 Hours (Table) 01/17/22 01/17/22 01/18/22 Range/Units 17:23 17:23 06:15 WBC 13.2 H 11.9 H (3.8-10.6) k/uL RBC 3.60 L 3.20 L (3.80-5.40) m/uL Hgb 9.6 L 8.4 L (11.4-16.0) gm/dL Hct 30.9 L 28.3 L (34.0-46.0) % MCHC 29.6 L (31.0-37.0) g/dL RDW 17.7 H 17.6 H (11.5-15.5) % Plt Count 493 H (150-450) k/uL Neutrophils # 10.8 H (1.3-7.7) k/uL Sodium 135 L (137-145) mmol/L Potassium 2.4 L* (3.5-5.1) mmol/L Glucose (74-99) mg/dL Total Protein (6.3-8.2) g/dL Albumin 2.8 L (3.5-5.0) g/dL 01/18/22 Range/Units 06:15 WBC (3.8-10.6) k/uL RBC (3.80-5.40) m/uL Hgb (11.4-16.0) gm/dL Hct (34.0-46.0) % MCHC (31.0-37.0) g/dL RDW (11.5-15.5) % Plt Count (150-450) k/uL Neutrophils # (1.3-7.7) k/uL Sodium 136 L (137-145) mmol/L Potassium 2.8 L (3.5-5.1) mmol/L Glucose 100 H (74-99) mg/dL Total Protein 6.2 L (6.3-8.2) g/dL Albumin 2.4 L (3.5-5.0) g/dL Chest x-ray: report reviewed Assessment and Plan (1) 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 Narrative/Plan: Continue on corticosteroid and follow-up with endocrinology as outpatient Current Visit: Yes Status: Acute Code(s): E27.3 - DRUG-INDUCED ADRENOCORTI FRENCH INSUFFICIENCY SNOMED Code(s): 003000409 (2) Hypothyroid Narrative/Plan: Monitor closely Current Visit: Yes Status: Acute Code(s): E03.9 - HYPOTHYROIDISM, UNSPECIFIED SNOMED Code(s): 56277106 (3) Dyspnea Narrative/Plan: Patient will need home o2 Current Visit: Yes Status: Acute Code(s): R06.00 - DYSPNEA, UNSPECIFIED SNOMED Code(s): 281038624 (4) Hypokalemia Current Visit: Yes Status: Acute Code(s): E87.6 - HYPOKALEMIA SNOMED Code(s): 96795442 (5) Hypoxia Current Visit: Yes Status: Acute Code(s): R09.02 - HYPOXEMIA SNOMED Code(s): 646886912 (6) Mass of upper lobe of right lung Narrative/Plan: Continue on Keytruda as long as pneumonitis is a consideration, pulmonology fol lowing Current Visit: No Status: Acute Code(s): R91.8 - OTHER NONSPECIFIC ABNORMAL FINDING OF LUNG FIELD SNOMED Code(s): 730546205 Plan: Doctor attests: I performed a history and physical examination of this patient, developed impression and plan of care, discussed with dictator. I agree with dictators note, documented as a scribe.
[2022-01-18] MEDS: MONTELUKAST 10 MG TAB PO SCH (21:21)
[2022-01-18] MEDS: lisinopriL 5 MG TAB PO SCH (21:21)
[2022-01-18] MEDS: SYMBICORT 160-4.5 MCG INHALER INHALATION SCH (21:28)
[2022-01-19] MEDS: HYDROcodone/APAP 5-325MG 1 EACH TAB PO PRN ×3 (04:26→21:45)
[2022-01-19] MEDS ORDERED: Potassium Replacement Protocol 1 EACH MISC MISCELLANE PRN (06:11)
[2022-01-19] MEDS: LEVOTHYROXINE 100 MCG TAB PO SCH (06:26)
[2022-01-19] MEDS: POTASSIUM CHLORIDE ER 20 MEQ TAB.ER PO SCH ×2 (06:29→09:17)
[2022-01-19] MEDS: IPRATROPIUM-ALBUTEROL 3 ML NEB INHALATION SCH ×4 (08:04→19:28)
[2022-01-19] MEDS: SYMBICORT 160-4.5 MCG INHALER INHALATION SCH ×2 (08:04→19:30)
[2022-01-19] MEDS: SODIUM CHLORIDE 0.9% 1,000 ML IV SCH ×2 (09:08→21:38)
[2022-01-19] MEDS: CHOLECALCIFEROL 25 MCG (1000 IU) TABLET PO SCH (09:15)
[2022-01-19] MEDS: MULTIVITAMINS, THERA 1 EACH TAB PO SCH (09:15)
[2022-01-19] MEDS: lisinopriL 10 MG TAB PO SCH (09:18)
[2022-01-19] MEDS: ZINC SULFATE 220 MG CAP PO SCH (09:18)
[2022-01-19] MEDS: methylPREDNISolone 4 MG TAB TAPER PO SCH (09:18)
[2022-01-19 09:36] LABS: Albumin 2.8 g/dL (3.5-5.0); Calcium 9.8 mg/dL (8.4-10.2); Magnesium 2.1 mg/dL (1.6-2.3); Potassium 3.7 mmol/L (3.5-5.1); Total Bilirubin 0.5 mg/dL (0.2-1.3); Total Protein 6.9 g/dL (6.3-8.2)
[2022-01-19 09:53] LABS: Anisocytosis Slight; Basophils % (A) 0 %; Eosinophils # (A) 0.2 k/uL (0-0.7); Eosinophils % (A) 1 %; HCT 33.7 % (34.0-46.0); Hypochromasia Marked; Lymphocytes # (A) 1.9 k/uL (1.0-4.8); Lymphocytes % (A) 11 %; MCH 25.9 pg (25.0-35.0); MCHC 29.2 g/dL (31.0-37.0); MCV 88.7 fL (80.0-100.0); Monocytes # (A) 0.6 k/uL (0-1.0); Monocytes % (A) 4 %; Neutrophils # (A) 14.3 k/uL (1.3-7.7); Neutrophils % (A) 83 %; Platelet Count 520 k/uL (150-450); Poikilocytosis Slight; WBC 17.3 k/uL (3.8-10.6)
[2022-01-19 09:56] LABS: HGB 9.9 gm/dL (11.4-16.0)
--- NOTE | 2022-01-19 14:01 | P.PN ---
Subjective Progress Note Date: 01/19/22 Principal diagnosis: Shortness of breath, lung cancer. Pulmonary consult dated 01/18/2022. 66-year-old female seen in the emergency room, yesterday, January 17, because of shortness of breath. The patient was apparently over at the infusion center at [facility], and apparently was short of breath, and had saturations in the 70 range. For that reason, she was directed to the emergency room. She apparently was receiving an iron infusion, and her chemotherapy. The patient was recently inpatient, between December 28, and January 01, for similar episode of shortness of breath. Patient was discharged home, not on any oxygen. She apparently tells me that she did not qualify. The patient has a history of recently diagnosed adenocarcinoma of the right upper lobe. It is metastatic, as she has spinal metastasis. The procedure and making the diagnosis was done by my partner. Currently, she is on saline at 20 mL an hour, and nasal O2 at 4 L/m. She has a history of metastatic adenocarcinoma of the lung, COPD, GERD, hypertension, and hypothyroidism. The patient is a former smoker. White count 11.9, hemoglobin 8.4, hematocrit 28.3, and platelet count 447,000. Sodium 136, potassium 2.8, chlorides 106, CO2 25, anion gap 5, BUN 16, creatinine 0.82. Albumin is 2.4. Testing for coronavirus was negative. On chest x-ray, the patient has a dense consolidation in the right upper lobe, which appears to be a bit worse, and was previously present. Progress note dated 01/19/2022. 66-year-old female, again seen in room 352. She was seen in consultation yesterday. The patient is a bit more short of breath today. His because she has her oxygen off. The patient would probably qualify for oxygen as her room air resting saturation was below 90%. I'm sure, with exertion, she will be below 88%. She has a recently diagnosed adenocarcinoma of the right upper lobe. She also has spinal metastasis. White count 17.3, he will 9.9, hematocrit 33.7, and platelet count 520,000. Sodium potassium chloride CO2 all normal. Anion gap normal. BUN 18, creatinine 0.81. Albumin is 2.8. Cortisol level was 35. Testing for kessler virus was negative. Her chest x-ray shows a dense consolidation in the right upper lobe. Objective - Vital Signs Vital signs: Vital Signs Temp 97.8 F 01/19/22 09:20 Pulse 66 01/19/22 12:14 Resp 18 01/19/22 09:20 BP 137/77 01/19/22 09:20 Pulse Ox 97 01/19/22 09:20 Intake & Output 01/18/22 01/19/22 01/19/22 18:59 06:59 18:59 Intake Total 480 360 Output Total 300 Balance 480 -300 360 Weight 51.2 kg Intake: Oral 480 360 Output: Urine 300 Other: # Voids 1 # Bowel Movements 0 - Exam No acute distress, oriented 3. Saturations on 3 L, are 97%. HEENT examination is grossly unremarkable. Neck supple. Full range of motion. No adenopathy thyromegaly or neck vein distention. Cardiovascular examination reveals regular rhythm rate. S1-S2 normal. No S3 or S4. No discernible murmur noted. Heart rate 66 bpm. Lungs reveal mild scattered rhonchi. Mild expiratory wheezes. No crackles. Breath sounds equal bilaterally but diminished throughout. Saturations are 97% on 3 L. Abdomen soft bowel sounds are heard. No masses or tenderness. Extremities are intact. No cyanosis clubbing or edema. Skin is without rash or lesion. Neurologic examination is brief but nonfocal. - Labs CBC & Chem 7: 01/19/22 08:12 01/19/22 08:12 Labs: Abnormal Lab Results - Last 24 Hours (Table) 01/18/22 01/18/22 01/19/22 Range/Units 15:15 23:23 08:12 WBC 17.3 H (3.8-10.6) k/uL Hgb 9.9 L D (11.4-16.0) gm/dL Hct 33.7 L (34.0-46.0) % MCHC 29.2 L (31.0-37.0) g/dL RDW 18.0 H (11.5-15.5) % Plt Count 520 H (150-450) k/uL Neutrophils # 14.3 H (1.3-7.7) k/uL Sodium 134 L (137-145) mmol/L Potassium 2.9 L 3.3 L (3.5-5.1) mmol/L BUN (7-17) mg/dL Glucose (74-99) mg/dL Albumin (3.5-5.0) g/dL 01/19/22 Range/Units 08:12 WBC (3.8-10.6) k/uL Hgb (11.4-16.0) gm/dL Hct (34.0-46.0) % MCHC (31.0-37.0) g/dL RDW (11.5-15.5) % Plt Count (150-450) k/uL Neutrophils # (1.3-7.7) k/uL Sodium (137-145) mmol/L Potassium (3.5-5.1) mmol/L BUN 18 H (7-17) mg/dL Glucose 115 H (74-99) mg/dL Albumin 2.8 L (3.5-5.0) g/dL Assessment and Plan Assessment: Advanced non-small cell lung cancer, adenocarcinoma, with spinal metastasis. COPD. Previous heavy tobacco use. History of hypertension. History of hypothyroidism. Gastroesophageal reflux disease. Plan: Plan dated 01/18/2022. Currently, the patient appears to be very comfortable. She does not appear to be any distress. There is no audible wheezing, use of accessory muscles, or conversational dyspnea. She will be placed on DuoNeb's, and Symbicort. Overall prognosis remains guarded. Additional recommendations are made. Patient could be considered for discharge. She feels like she needs oxygen although apparently she does not qualify for it. I will also place her on a Medrol Dosepak. Plan dated 01/19/2022. The patient's room air resting saturation was 88-89%. Likely, the patient exerts herself, she'll desaturate down below 88%. She feels like she gets home, he becomes very short of breath, and would benefit from oxygen therapy. Currently, she is on a Medrol Dosepak, Symbicort, Singulair, and albuterol sulfate and ipratropium bromide. The patient does not require antibiotics at this time. Patient could be considered for discharge if we can arrange for home O2. She should be walked up and down the hallway, to determine what her walking saturation is. We will continue to follow make recommendations where appropriate. Labs, x-rays, and medications are reviewed. Prognosis is certainly guarded. Time with Patient: Less than 30
[2022-01-19] MEDS ORDERED: HYDROmorphone 0.5 MG/0.5 ML SYRINGE IVP PRN (16:16)
[2022-01-19] MEDS: KETOROLAC 15 MG/ML 1 ML VIAL IVP SCH (16:59)
--- NOTE | 2022-01-19 20:48 | HP ---
HISTORY AND PHYSICAL CHIEF COMPLAINT: Shortness of breath and as well as back pain. HISTORY OF PRESENT ILLNESS: This 66-year-old woman with a past medical history of COPD, advanced lung cancer, being followed by Dr. Aggarwal in the outpatient setting, was complaining of increasing shortness of breath and the patient was admitted to [facility]. Patient on bronchodilators treatment. Patient complaining of severe back pain at this time. The patient is also seen by Dr. Peña and as well as Hematology/Oncology. Keytruda is being continued at this time. The patient also had possibly adrenal insufficiency secondary to chemotherapy. PAST MEDICAL HISTORY: History of lung cancer, history of COPD, GERD. HOME MEDICATIONS: Reviewed include Zofran, zinc. Doses are reviewed. ALLERGIES: NOVOCAIN. FAMILY HISTORY: History of heart disease. SOCIAL HISTORY: Previous smoker. REVIEW OF SYSTEMS: 14 point review of service is negative except mentioned earlier. PHYSICAL EXAMINATION: Pulse is 98, blood pressure 127/74, respiration 20. HEENT: Conjunctivae normal. NECK is no JVD. CARDIOVASCULAR: S1, S2 muffled. RESPIRATORY: Breath sounds diminished in the bases. Bilateral scattered rhonchi and crackles. ABDOMEN: Soft, nontender. Examination of back: Some tenderness present. LEGS: No edema. No swelling. NERVOUS System: No focal deficits. SKIN: No ulcers, rashes. JOINTS: No active deforming arthropathy. LABS: WBC 17.2. Other labs are noted. ASSESSMENT: 1. Chronic obstructive pulmonary disease acute exacerbation. 2. Severe back pain. 3. Advanced non-small cell carcinoma/adenocarcinoma with spinal metastasis. RECOMMENDATIONS AND DISCUSSION: This 66 -year-old woman who presented with multiple complex medical issues, we will monitor the patient closely. Continue the current medications, management, optimize the pain medications. Otherwise, steroids and continue the rest of medications including bronchodilators. Prognosis guarded. Further recommendations to follow. See orders for details. DVT prophylaxis. MMODL / IJN: [id number] /
[2022-01-19] MEDS: HEPARIN SODIUM,PORCINE/PF 5,000 UNIT/0.5 ML SYRINGE SQ SCH (21:41)
[2022-01-19] MEDS: MONTELUKAST 10 MG TAB PO SCH (21:45)
[2022-01-19] MEDS: lisinopriL 5 MG TAB PO SCH (21:45)
[2022-01-20] MEDS: KETOROLAC 15 MG/ML 1 ML VIAL IVP SCH ×4 (00:05→23:40)
[2022-01-20] MEDS: PANTOPRAZOLE 40 MG TABLET PO SCH (06:30)
[2022-01-20] MEDS: LEVOTHYROXINE 100 MCG TAB PO SCH (06:30)
[2022-01-20] MEDS: HYDROcodone/APAP 5-325MG 1 EACH TAB PO PRN ×2 (07:18→21:58)
[2022-01-20] MEDS: IPRATROPIUM-ALBUTEROL 3 ML NEB INHALATION SCH ×4 (08:36→21:25)
[2022-01-20] MEDS: SYMBICORT 160-4.5 MCG INHALER INHALATION SCH ×2 (08:36→21:25)
[2022-01-20] MEDS: ZINC SULFATE 220 MG CAP PO SCH (09:20)
[2022-01-20] MEDS: MULTIVITAMINS, THERA 1 EACH TAB PO SCH (09:20)
[2022-01-20] MEDS: lisinopriL 10 MG TAB PO SCH (09:20)
[2022-01-20] MEDS: CHOLECALCIFEROL 25 MCG (1000 IU) TABLET PO SCH (09:20)
[2022-01-20] MEDS: HEPARIN SODIUM,PORCINE/PF 5,000 UNIT/0.5 ML SYRINGE SQ SCH ×2 (09:21→21:55)
[2022-01-20] MEDS: methylPREDNISolone 4 MG TAB TAPER PO SCH (09:22)
[2022-01-20 09:34] LABS: Anisocytosis Slight; Basophils # (A) 0.1 k/uL (0-0.2); Basophils % (A) 0 %; Eosinophils # (A) 0.5 k/uL (0-0.7); Eosinophils % (A) 3 %; HCT 30.5 % (34.0-46.0); HGB 8.8 gm/dL (11.4-16.0); Hypochromasia Marked; Lymphocytes # (A) 1.7 k/uL (1.0-4.8); Lymphocytes % (A) 11 %; MCHC 28.9 g/dL (31.0-37.0); MCV 90.1 fL (80.0-100.0); Mean Platelet Volume 6.8; Monocytes # (A) 0.6 k/uL (0-1.0); Monocytes % (A) 4 %; Neutrophils # (A) 12.3 k/uL (1.3-7.7); Neutrophils % (A) 80 %; Platelet Count 527 k/uL (150-450); RBC 3.38 m/uL (3.80-5.40); RDW 18.2 % (11.5-15.5); WBC 15.4 k/uL (3.8-10.6)
[2022-01-20 09:52] LABS: Albumin 2.7 g/dL (3.5-5.0); Calcium 9.6 mg/dL (8.4-10.2); Potassium 4.9 mmol/L (3.5-5.1); Total Bilirubin 0.5 mg/dL (0.2-1.3); Total Protein 6.6 g/dL (6.3-8.2)
--- NOTE | 2022-01-20 12:37 | P.PN ---
Subjective Progress Note Date: 01/20/22 Principal diagnosis: Shortness of breath, lung cancer. Pulmonary consult dated 01/18/2022. 66-year-old female seen in the emergency room, yesterday, January 17, because of shortness of breath. The patient was apparently over at the infusion center at [facility], and apparently was short of breath, and had saturations in the 70 range. For that reason, she was directed to the emergency room. She apparently was receiving an iron infusion, and her chemotherapy. The patient was recently inpatient, between December 28, and January 01, for similar episode of shortness of breath. Patient was discharged home, not on any oxygen. She apparently tells me that she did not qualify. The patient has a history of recently diagnosed adenocarcinoma of the right upper lobe. It is metastatic, as she has spinal metastasis. The procedure and making the diagnosis was done by my partner. Currently, she is on saline at 20 mL an hour, and nasal O2 at 4 L/m. She has a history of metastatic adenocarcinoma of the lung, COPD, GERD, hypertension, and hypothyroidism. The patient is a former smoker. White count 11.9, hemoglobin 8.4, hematocrit 28.3, and platelet count 447,000. Sodium 136, potassium 2.8, chlorides 106, CO2 25, anion gap 5, BUN 16, creatinine 0.82. Albumin is 2.4. Testing for coronavirus was negative. On chest x-ray, the patient has a dense consolidation in the right upper lobe, which appears to be a bit worse, and was previously present. Progress note dated 01/19/2022. 66-year-old female, again seen in room 352. She was seen in consultation yesterday. The patient is a bit more short of breath today. His because she has her oxygen off. The patient would probably qualify for oxygen as her room air resting saturation was below 90%. I'm sure, with exertion, she will be below 88%. She has a recently diagnosed adenocarcinoma of the right upper lobe. She also has spinal metastasis. White count 17.3, he will 9.9, hematocrit 33.7, and platelet count 520,000. Sodium potassium chloride CO2 all normal. Anion gap normal. BUN 18, creatinine 0.81. Albumin is 2.8. Cortisol level was 35. Testing for kessler virus was negative. Her chest x-ray shows a dense consolidation in the right upper lobe. Progress note dated 01/20/2022. 66-year-old female, again seen in room 352. The patient's currently on a couple liters of oxygen. She feels better while on oxygen. The patient states that overall, she is doing recently well. We did qualify her for home O2. She has recently diagnosed adenocarcinoma of the right upper lobe, with spinal metast asis. She does complain of some back pain. White count 15.4, hemoglobin 8.8, hematocrit 30.5, platelet count 527,000. Sodium 139, potassium 4.9, chlorides 108, CO2 26, anion gap 5, BUN 24, and creatinine 1.0. No recent chest x-ray to review. Objective - Vital Signs Vital signs: Vital Signs Temp 98.3 F 01/20/22 12:00 Pulse 102 H 01/20/22 12:00 Resp 16 01/20/22 12:00 BP 152/79 01/20/22 12:00 Pulse Ox 97 01/20/22 12:00 Intake & Output 01/19/22 01/20/22 01/20/22 17:59 06:59 18:59 Intake Total 240 Output Total 0 Balance 240 Intake: Oral 240 Output: Urine Stool 0 Other: Voiding Method Toilet # Voids - Exam No acute distress, oriented 3. Saturations on 3 L, are 96%. HEENT examination is grossly unremarkable. Neck supple. Full range of motion. No adenopathy thyromegaly or neck vein distention. Cardiovascular examination reveals regular rhythm rate. S1-S2 normal. No S3 or S4. No discernible murmur noted. Heart rate 82 bpm. Lungs reveal mild scattered rhonchi. Mild expiratory wheezes. No crackles. Breath sounds equal bilaterally but diminished throughout. Saturations are 96% on 3 L. Abdomen soft bowel sounds are heard. No masses or tenderness. Extremities are intact. No cyanosis clubbing or edema. Skin is without rash or lesion. Neurologic examination is brief but nonfocal. - Labs CBC & Chem 7: 01/20/22 08:44 01/20/22 08:44 Labs: Abnormal Lab Results - Last 24 Hours (Table) 01/20/22 01/20/22 Range/Units 08:44 08:44 WBC 15.4 H (3.8-10.6) k/uL RBC 3.38 L (3.80-5.40) m/uL Hgb 8.8 L (11.4-16.0) gm/dL Hct 30.5 L (34.0-46.0) % MCHC 28.9 L (31.0-37.0) g/dL RDW 18.2 H (11.5-15.5) % Plt Count 527 H (150-450) k/uL Neutrophils # 12.3 H (1.3-7.7) k/uL Chloride 108 H (98-107) mmol/L BUN 24 H (7-17) mg/dL Albumin 2.7 L (3.5-5.0) g/dL Assessment and Plan Assessment: Advanced non-small cell lung cancer, adenocarcinoma, with spinal metastasis. COPD. Previous heavy tobacco use. History of hypertension. History of hypothyroidism. Gastroesophageal reflux disease. Plan: Plan dated 01/18/2022. Currently, the patient appears to be very comfortable. She does not appear to be any distress. There is no audible wheezing, use of accessory muscles, or conversational dyspnea. She will be placed on DuoNeb's, and Symbicort. Overall prognosis remains guarded. Additional recommendations are made. Patient could be considered for discharge. She feels like she needs oxygen although apparently she does not qualify for it. I will also place her on a Medrol Dosepak. Plan dated 01/19/2022. The patient's room air resting saturation was 88-89%. Likely, the patient exerts herself, she'll desaturate down below 88%. She feels like she gets home, he becomes very short of breath, and would benefit from oxygen therapy. Currently, she is on a Medrol Dosepak, Symbicort, Singulair, and albuterol sulf ate and ipratropium bromide. The patient does not require antibiotics at this time. Patient could be considered for discharge if we can arrange for home O2. She should be walked up and down the hallway, to determine what her walking saturation is. We will continue to follow make recommendations where appropriate. Labs, x-rays, and medications are reviewed. Prognosis is certainly guarded. Plan dated 01/20/2022. The patient is currently on 3 L nasal cannula. Saturations are 97%. Clinically she is doing much better. We did qualify her for oxygen at home. I suspect she may be discharged tomorrow. Labs, x-rays, and medications are all reviewed. We will continue to follow this patient and make recommendations where appropriate. Prognosis is guarded given her diagnosis of metastatic lung cancer. Time with Patient: Less than 30
--- NOTE | 2022-01-20 18:32 | PN ---
PROGRESS NOTE DATE OF SERVICE: 01/20/2022 This 66-year-old woman who was admitted with COPD acute exacerbation also complained of some back pain possibly secondary to metastasis. No chest pain. No palpitation. PHYSICAL EXAMINATION: Pulse 97, blood pressure 140/85, respirations 19. Chest: A few scattered rhonchi and crackles. Cardiovascular: S1, S2. Abdomen: Soft, nontender. No distention. Back: Minimal tenderness. LAB: WBC 15.4, other labs are reviewed. ASSESSMENT: 1. Chronic obstructive pulmonary disease acute exacerbation. 2. Severe back pain possibly secondary to metastasis. 3. Advanced non-small cell carcinoma with spinal METS. RECOMMENDATIONS AND DISCUSSION: Recommend to continue current medications, management and symptomatic treatment. Continue with steroids. Continue the rest of the medications. Bronchodilators. Dr. Aggarwal will follow tomorrow. MMTANISHAL / DEBIN: [id number] /
[2022-01-20] MEDS: MONTELUKAST 10 MG TAB PO SCH (21:55)
[2022-01-20] MEDS: lisinopriL 5 MG TAB PO SCH (21:55)
[2022-01-20] MEDS: SODIUM CHLORIDE 0.9% 1,000 ML IV SCH (23:38)
[2022-01-21] MEDS: LEVOTHYROXINE 100 MCG TAB PO SCH (05:52)
[2022-01-21] MEDS: HYDROcodone/APAP 5-325MG 1 EACH TAB PO PRN (05:53)
[2022-01-21] MEDS: HEPARIN SODIUM,PORCINE/PF 5,000 UNIT/0.5 ML SYRINGE SQ SCH (08:02)
[2022-01-21] MEDS: SYMBICORT 160-4.5 MCG INHALER INHALATION SCH (08:03)
[2022-01-21] MEDS: IPRATROPIUM-ALBUTEROL 3 ML NEB INHALATION SCH ×2 (08:03→12:17)
[2022-01-21] MEDS: PANTOPRAZOLE 40 MG TABLET PO SCH (08:06)
[2022-01-21] MEDS: ZINC SULFATE 220 MG CAP PO SCH (08:06)
[2022-01-21] MEDS: KETOROLAC 15 MG/ML 1 ML VIAL IVP SCH (08:06)
[2022-01-21] MEDS: CHOLECALCIFEROL 25 MCG (1000 IU) TABLET PO SCH (08:07)
[2022-01-21] MEDS: methylPREDNISolone 4 MG TAB TAPER PO SCH (08:07)
[2022-01-21] MEDS: lisinopriL 10 MG TAB PO SCH (08:07)
[2022-01-21] MEDS: MULTIVITAMINS, THERA 1 EACH TAB PO SCH (08:07)
[2022-01-21 08:08] VITALS: BP 154/84; RESP 20; TEMP 98
[2022-01-21] MEDS: SODIUM CHLORIDE 0.9% 1,000 ML IV SCH (08:08)
[2022-01-21 09:43] LABS: Basophils # (A) 0.03 X 10*3/uL (0.00-0.10); Basophils % (A) 0.2 %; Eosinophils # (A) 0.47 X 10*3/uL (0.04-0.35); Eosinophils % (A) 3.3 %; HCT 26.3 % (37.2-46.3); HGB 7.2 g/dL (12.0-15.0); Immature Grans, Automated 3.2 %; Lymphocytes # (A) 1.77 X 10*3/uL (0.90-5.00); Lymphocytes % (A) 12.3 %; MCH 25.4 pg (27.0-32.0); MCHC 27.4 g/dL (32.0-37.0); MCV 92.9 fL (80.0-97.0); Mean Platelet Volume 9.2 fL (9.5-12.2); Monocytes # (A) 0.79 X 10*3/uL (0.20-1.00); Monocytes % (A) 5.5 %; NRBC Per 100 WBC 0.1 /100 WBCS (0.0-0.0); Neutrophils % (A) 75.5 %; Platelet Count 438 X 10*3/uL (140-440); RBC 2.83 X 10*6/uL (4.10-5.20); RDW 20.1 % (11.5-14.5); WBC 14.42 X 10*3/uL (4.50-10.00)
[2022-01-21 09:51] LABS: ALT 13 U/L (8-44); AST 10 U/L (13-35); African American GFR (CKD) 103.9 (60.0-200.0); Albumin 2.6 g/dL (3.8-4.9); Albumin/Globulin Ratio 0.84 (1.60-3.17); Alkaline Phosphatase 103 U/L (41-126); BUN/Creat Ratio 29.86 Ratio (12.00-20.00); Blood Urea Nitrogen 20.9 mg/dL (9.0-27.0); Calcium 9.5 mg/dL (8.7-10.3); Carbon Dioxide 20.3 mmol/L (20.0-27.5); Chloride 106 mmol/L (96-109); Globulin 3.1 g/dL (1.6-3.3); Glucose 87 mg/dL (70-110); Non-African American GFR(CKD) 89.7 (60.0-200.0); Potassium 4.5 mmol/L (3.5-5.5); Sodium 138 mmol/L (135-145); Total Bilirubin <0.15 mg/dL (0.30-1.20); Total Protein 5.7 g/dL (6.2-8.2)
--- NOTE | 2022-01-21 10:26 | P.DS ---
Providers Date of admission: 01/17/22 19:06 Expected date of discharge: 01/21/22 Attending physician: Keenan Aggarwal Consults: 01/17/22 19:08 Consult Physician Routine Consulting Provider: Ricardo Peña Consult Reason/Comments: lung cavitation Do you want consulting provider notified?: Yes 01/17/22 19:09 Consult Physician Routine Consulting Provider: John Pineda Consult Reason/Comments: cancer Do you want consulting provider notified?: Yes Primary care physician: Keenan Aggarwal Hospital Course: Final Diagnoses: Advnced non-small cell lung CA, adenocarcinoma with spinal metastasis Acute COPD exacerbation Acute hypoxic respiratory failure secondary to the above Chronic back pain suspect secondary to metastasis Gastroesophageal reflux disease Hypertension Hypothyroidism Hospital course: This is a 66-year-old female with advanced non-small cell lung CA, adenocarcinoma with spinal metastasis, COPD and multiple other medical issues. Evaluated by oncology, pulmonary. Maintained on nebulized bronchodilators, steroids, Symbicort. No antibiotics recommended as per pulmonary. With exertion patient desats below 88% with accompanying shortness of breath; at discharge patient will require home O2, and nebulized bronchodilators with DuoNeb 0.5 mg-3 mg/3 mL solution inhalation 4 times a day and every 4 hours PRN SOB. Cleared by pulmonary for discharge. Patient will be discharged home today in stable condition with guarded prognosis. Patient is Palliative care appropriate, possible informational meeting either prior to discharge or at home pending patient's consent. The impression and plan of care has been dictated as directed. : I performed a history and examination of this patient, discussed the same with the dictator. I agree with the dictator's note ,documented as a scribe. Any additional findings or plans will be noted. Patient Condition at Discharge: Stable Plan - Discharge Summary Discharge Rx Participant: No New Discharge Prescriptions: New methylPREDNISolone Dose Pack [Medrol Dose Pack] 4 mg PO DIRECTED #21 tab Pantoprazole [Protonix] 40 mg PO AC-BRKFST #30 tab Ipratropium-Albuterol Nebulize [Duoneb 0.5 mg-3 mg/3 ml Soln] 3 ml INHALATION RT-QID #120 ml Budesonide-Formot 160-4.5 Mcg [Symbicort 160-4.5 Mcg Inhaler] 2 puff INHA LATION RT-BID #1 Continue Albuterol Sulfate [Proair Hfa] 2 puff INHALATION RT-Q6H PRN PRN Reason: Shortness Of Breath Lisinopril [Zestril] 5 mg PO HS ondansetron HCL [Zofran] 8 mg PO Q6H PRN PRN Reason: Nausea Levothyroxine Sodium 100 mcg PO DAILY #30 tablet Lisinopril [Zestril] 10 mg PO DAILY Multivitamins, Thera [Multivitamin (formulary)] 1 tab PO DAILY Montelukast Sodium [Singulair] 10 mg PO HS Cholecalciferol [Vitamin D3 (25 Mcg = 1000 Iu)] 25 mcg PO DAILY Zinc Gluconate [Zinc] 50 mg PO DAILY HYDROcodone/APAP 5-325MG [Highlands 5-325] 1 tab PO Q6H PRN PRN Reason: Pain Discharge Medication List Albuterol Sulfate [Proair Hfa] 2 puff INHALATION RT-Q6H PRN 09/25/21 [History] Montelukast Sodium [Singulair] 10 mg PO HS 09/25/21 [History] Multivitamins, Thera [Multivitamin (formulary)] 1 tab PO DAILY 09/25/21 [History] Cholecalciferol [Vitamin D3 (25 Mcg = 1000 Iu)] 25 mcg PO DAILY 10/25/21 [Histo ry] Lisinopril [Zestril] 5 mg PO HS 12/27/21 [History] ondansetron HCL [Zofran] 8 mg PO Q6H PRN 12/27/21 [History] Levothyroxine Sodium 100 mcg PO DAILY #30 tablet 01/01/22 [Rx] HYDROcodone/APAP 5-325MG [High[place] 5-325] 1 tab PO Q6H PRN 01/17/22 [History] Lisinopril [Zestril] 10 mg PO DAILY 01/17/22 [History] Zinc Gluconate [Zinc] 50 mg PO DAILY 01/17/22 [History] Budesonide-Formot 160-4.5 Mcg [Symbicort 160-4.5 Mcg Inhaler] 2 puff INHALATION RT-BID #1 01/21/22 [Rx] Ipratropium-Albuterol Nebulize [Duoneb 0.5 mg-3 mg/3 ml Soln] 3 ml INHALATION RT-QID #120 ml 03/14/22 [Rx] Pantoprazole [Protonix] 40 mg PO AC-BRKFST #30 tab 01/21/22 [Rx] methylPREDNISolone Dose Pack [Medrol Dose Pack] 4 mg PO DIRECTED #21 tab 01/21/22 [Rx] Follow up Appointment(s)/Referral(s): John Pineda MD [STAFF PHYSICIAN] - 1 Week Keenan Aggarwal DO [Primary Care Provider] - 3 Days Activity/Diet/Wound Care/Special Instructions: Patient requires oxygen/Nebs to manage their copd at home.. Palliative informational visit at home.
[2022-01-21 12:27] VITALS: PULSE 90
--- NOTE | 2022-01-21 13:13 | P.PN ---
<Mary Jeffries M - Last Filed: 01/21/22 13:13> Subjective Progress Note Date: 01/21/22 Pulmonary consult dated 01/18/2022. 66-year-old female seen in the emergency room, yesterday, January 17, because of shortness of breath. The patient was apparently over at the infusion center at [facility], and apparently was short of breath, and had saturations in the 70 range. For that reason, she was directed to the emergency room. She apparently was receiving an iron infusion, and her chemotherapy. The patient was recently inpatient, between December 28, and January 01, for similar episode of shortness of breath. Patient was discharged home, not on any oxygen. She apparently tells me that she did not qualify. The patient has a history of recently diagnosed adenocarcinoma of the right upper lobe. It is metastatic, as she has spinal metastasis. The procedure and making the diagnosis was done by my partner. Currently, she is on saline at 20 mL an hour, and nasal O2 at 4 L/m. She has a history of metastatic adenocarcinoma of the lung, COPD, GERD, hypertension, and hypothyroidism. The patient is a former smoker. White count 11.9, hemoglobin 8.4, hematocrit 28.3, and platelet count 447,000. Sodium 136, potassium 2.8, chlorides 106, CO2 25, anion gap 5, BUN 16, creatinine 0.82. Albumin is 2.4. Testing for coronavirus was negative. On chest x-ray, the patient has a dense consolidation in the right upper lobe, which appears to be a bit worse, and was previously present. Progress note dated 01/19/2022. 66-year-old female, again seen in room 352. She was seen in consultation yesterday. The patient is a bit more short of breath today. His because she has her oxygen off. The patient would probably qualify for oxygen as her room air resting saturation was below 90%. I'm sure, with exertion, she will be below 88%. She has a recently diagnosed adenocarcinoma of the right upper lobe. She also has spinal metastasis. White count 17.3, he will 9.9, hematocrit 33.7, and platelet count 520,000. Sodium potassium chloride CO2 all normal. Anion gap normal. BUN 18, creatinine 0.81. Albumin is 2.8. Cortisol level was 35. Testing for kessler virus was negative. Her chest x-ray shows a dense consolidation in the right upper lobe. Progress note dated 01/20/2022. 66-year-old female, again seen in room 352. The patient's currently on a couple liters of oxygen. She feels better while on oxygen. The patient states that overall, she is doing recently well. We did qualify her for home O2. She has recently diagnosed adenocarcinoma of the right upper lobe, with spinal metastasis. She does complain of some back pain. White count 15.4, hemoglobin 8.8, hematocrit 30.5, platelet count 527,000. Sodium 139, potassium 4.9, chlorides 108, CO2 26, anion gap 5, BUN 24, and creatinine 1.0. No recent chest x-ray to review. On 01/21/2022 patient seen in follow-up on medical surgical floor. She states her breathing has improved since admission, she is breathing comfortably today. She is currently on 3 L of oxygen her pulse ox is 95-98%, hemodynamically she is stable, she has been afebrile. She's had no acute events overnight, no cough, no wheezing, lung sounds are diminished at the bases. Patient is currently on the Medrol Dosepak, she is on nebulized and inhaled bronchodilators. Today's labs have been reviewed, white blood cell count slightly improved down to 14.4, hemoglobin is 7.2, electrolytes and renal profile are unremarkable. Objective - Vital Signs Vital signs: Vital Signs Temp 98.0 F 01/21/22 08:00 Pulse 90 01/21/22 12:26 Resp 20 01/21/22 08:00 BP 154/84 01/21/22 08:00 Pulse Ox 95 01/21/22 08:00 Intake & Output 01/20/22 01/21/22 01/21/22 18:59 06:59 18:59 Intake Total 720 Output Total 0 Balance 720 Intake: Oral 720 Output: Stool 0 Other: Voiding Method Toilet Toilet # Voids 3 - Exam GENERAL EXAM: Alert, frail, chronically ill looking 66 yo female comfortable in no apparent distress. HEAD: Normocephalic/atraumatic. EYES: Normal reaction of pupils, equal size. Conjunctiva pink, sclera white. NOSE: Clear with pink turbinates. THROAT: No erythema or exudates. NECK: No masses, no JVD, no thyroid enlargement, no adenopathy. CHEST: No chest wall deformity. Symmetrical expansion. LUNGS: Equal air entry with no crackles, wheeze, rhonchi or dullness. CVS: Regular rate and rhythm, normal S1 and S2, no gallops, no murmurs, no rubs ABDOMEN: Soft, nontender. No hepatosplenomegaly, normal bowel sounds, no guarding or rigidity. EXTREMITIES: No clubbing, no edema, no cyanosis, 2+ pulses and upper and lower extremities. MUSCULOSKELETAL: Muscle strength and tone normal. SPINE: No scoliosis or deformity SKIN: No rashes CENTRAL NERVOUS SYSTEM: Alert and oriented -3. No focal deficits, tone is normal in all 4 extremities. PSYCHIATRIC: Alert and oriented -3. Appropriate affect. Intact judgment and insight. - Labs CBC & Chem 7: 01/21/22 05:09 01/21/22 05:09 Labs: Abnormal Lab Results - Last 24 Hours (Table) 01/21/22 01/21/22 Range/Units 05:09 05:09 WBC 14.42 H (4.50-10.00) X 10*3/uL RBC 2.83 L (4.10-5.20) X 10*6/uL Hgb 7.2 L (12.0-15.0) g/dL Hct 26.3 L (37.2-46.3) % MCH 25.4 L (27.0-32.0) pg MCHC 27.4 L (32.0-37.0) g/dL RDW 20.1 H (11.5-14.5) % MPV 9.2 L (9.5-12.2) fL Absolute Nucleated RBC 0.02 H (0.00-0.00) X 10*3/uL Immature Gran # 0.46 H (0.00-0.04) X 10*3/uL Neutrophils # 10.90 H (1.80-7.70) X 10*3/uL Eosinophils # 0.47 H (0.04-0.35) X 10*3/uL NRBC/100 WBC Diff 0.1 H (0.0-0.0) /100 WBCS BUN/Creatinine Ratio 29.86 H (12.00-20.00) Ratio Total Bilirubin <0.15 L (0.30-1.20) mg/dL AST 10 L (13-35) U/L Total Protein 5.7 L (6.2-8.2) g/dL Albumin 2.6 L (3.8-4.9) g/dL Albumin/Globulin Ratio 0.84 L (1.60-3.17) g/dL Assessment and Plan Plan: Assessment: Advanced non-small cell lung cancer, adenocarcinoma, with spinal metastasis. COPD. Previous heavy tobacco use. History of hypertension. History of hypothyroidism. Gastroesophageal reflux disease. Plan: Vital signs are stable. No acute events overnight Clinically continues to improve Stable for discharge today Home oxygen and nebulized treatments have been set up Outpatient follow-up with Dr. Royal in the office in 2 weeks I have personally seen and examined the patient, performed the documentation and the assessment and plan as written. Number of minutes spent on the visit: [10] Time with Patient: Less than 30 <Casey Lorenzana - Last Filed: 01/21/22 18:19> Objective - Vital Signs Vital signs: Vital Signs Temp 98.0 F 01/21/22 08:00 Pulse 90 01/21/22 12:26 Resp 20 01/21/22 08:00 BP 154/84 01/21/22 08:00 Pulse Ox 95 01/21/22 08:00 Intake & Output 01/20/22 01/21/22 01/21/22 18:59 06:59 18:59 Intake Total 720 Output Total 0 Balance 720 Intake: Oral 720 Output: Stool 0 Other: Voiding Method Toilet Toilet # Voids 3 1 - Labs CBC & Chem 7: 01/21/22 05:09 01/21/22 05:09 Labs: Abnormal Lab Results - Last 24 Hours (Table) 01/21/22 01/21/22 Range/Units 05:09 05:09 WBC 14.42 H (4.50-10.00) X 10*3/uL RBC 2.83 L (4.10-5.20) X 10*6/uL Hgb 7.2 L (12.0-15.0) g/dL Hct 26.3 L (37.2-46.3) % MCH 25.4 L (27.0-32.0) pg MCHC 27.4 L (32.0-37.0) g/dL RDW 20.1 H (11.5-14.5) % MPV 9.2 L (9.5-12.2) fL Absolute Nucleated RBC 0.02 H (0.00-0.00) X 10*3/uL Immature Gran # 0.46 H (0.00-0.04) X 10*3/uL Neutrophils # 10.90 H (1.80-7.70) X 10*3/uL Eosinophils # 0.47 H (0.04-0.35) X 10*3/uL NRBC/100 WBC Diff 0.1 H (0.0-0.0) /100 WBCS BUN/Creatinine Ratio 29.86 H (12.00-20.00) Ratio Total Bilirubin <0.15 L (0.30-1.20) mg/dL AST 10 L (13-35) U/L Total Protein 5.7 L (6.2-8.2) g/dL Albumin 2.6 L (3.8-4.9) g/dL Albumin/Globulin Ratio 0.84 L (1.60-3.17) g/dL Assessment and Plan Plan: I have personally seen and examined the patient and reviewed the documentation. I performed a joint evaluation with the nurse practitioner in this evaluation was done more than 20 minutes. I fully agree with the documentation above and the plan of care.
--- NOTE | 2022-01-21 15:40 | P.PN ---
Subjective Progress Note Date: 01/21/22 Principal diagnosis: Hypoxia Pt doing well on O2, she is starting to get around room with assistive device. Objective - Vital Signs Vital signs: Vital Signs Temp 98.0 F 01/21/22 08:00 Pulse 90 01/21/22 12:26 Resp 20 01/21/22 08:00 BP 154/84 01/21/22 08:00 Pulse Ox 95 01/21/22 08:00 Intake & Output 01/20/22 01/21/22 01/21/22 18:59 06:59 18:59 Intake Total 720 Output Total 0 Balance 720 Intake: Oral 720 Output: Stool 0 Other: Voiding Method Toilet Toilet # Voids 3 1 - Constitutional General appearance: Present: cooperative, no acute distress, thin - EENT Eyes: Present: anicteric sclerae, EOMI ENT: Present: hearing grossly normal - Respiratory Respiratory: bilateral: CTA, diminished - Cardiovascular Rhythm: regular Heart sounds: normal: S1, S2 Abnormal Heart Sounds: Absent: systolic murmur, diastolic murmur, rub, S3 Gallop, S4 Gallop, click, other - Gastrointestinal General gastrointestinal: Present: normal bowel sounds, soft - Neurologic Neurologic: Present: CNII-XII intact - Musculoskeletal Musculoskeletal: Present: generalized weakness, strength equal bilaterally - Psychiatric Psychiatric: Present: A&O x's 3, appropriate affect, intact judgment & insight - Labs CBC & Chem 7: 01/21/22 05:09 01/21/22 05:09 Labs: Abnormal Lab Results - Last 24 Hours (Table) 01/21/22 01/21/22 Range/Units 05:09 05:09 WBC 14.42 H (4.50-10.00) X 10*3/uL RBC 2.83 L (4.10-5.20) X 10*6/uL Hgb 7.2 L (12.0-15.0) g/dL Hct 26.3 L (37.2-46.3) % MCH 25.4 L (27.0-32.0) pg MCHC 27.4 L (32.0-37.0) g/dL RDW 20.1 H (11.5-14.5) % MPV 9.2 L (9.5-12.2) fL Absolute Nucleated RBC 0.02 H (0.00-0.00) X 10*3/uL Immature Gran # 0.46 H (0.00-0.04) X 10*3/uL Neutrophils # 10.90 H (1.80-7.70) X 10*3/uL Eosinophils # 0.47 H (0.04-0.35) X 10*3/uL NRBC/100 WBC Diff 0.1 H (0.0-0.0) /100 WBCS BUN/Creatinine Ratio 29.86 H (12.00-20.00) Ratio Total Bilirubin <0.15 L (0.30-1.20) mg/dL AST 10 L (13-35) U/L Total Protein 5.7 L (6.2-8.2) g/dL Albumin 2.6 L (3.8-4.9) g/dL Albumin/Globulin Ratio 0.84 L (1.60-3.17) g/dL Assessment and Plan (1) Hypoxia Narrative/Plan: Pt needing O2 24/7, this has been ordered for her. 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 Need pt to f/u with Endocrinology Status: Acute Code(s): E27.3 - DRUG-INDUCED ADRENOCORTICAL INSUFFICIENCY SNOMED Code(s): 480565364 (3) History of lung cancer Narrative/Plan: Pt cont on IO maintenance NSCLC. Due at end of month. She sees Primary Onc day before treatment Status: Acute Code(s): Z85.118 - PERSONAL HISTORY OF MALIGNANT NEOPLASM OF BRONCHUS AND LUNG SNOMED Code(s): 474671033
== END 2022-01-21 14:16 | disposition home or self-care (01) | DRG 190 ==
LOC: EC 16:20 → 3SCARD 19:06 → 4SSUR 01-20 15:46
PROVIDERS: ADMIT Family Medicine; ATTEND Family Medicine
DX: J44.1 Chronic obstructive pulmonary disease with (acute) exacerbation (principal); J96.01 Acute respiratory failure with hypoxia; C34.11 Malignant neoplasm of upper lobe, right bronchus or lung; C79.51 Secondary malignant neoplasm of bone; E27.3 Drug-induced adrenocortical insufficiency; T45.1X5A Adverse effect of antineoplastic and immunosuppressive drugs, initial encounter; I10 Essential (primary) hypertension; E03.9 Hypothyroidism, unspecified; Z79.890 Hormone replacement therapy; Z20.822 Contact with and (suspected) exposure to COVID-19; E87.6 Hypokalemia; G89.29 Other chronic pain; J98.4 Other disorders of lung; K21.9 Gastro-esophageal reflux disease without esophagitis; Z79.52 Long term (current) use of systemic steroids; Z79.899 Other long term (current) drug therapy; Z83.3 Family history of diabetes mellitus; Z85.118 Personal history of other malignant neoplasm of bronchus and lung; Z87.891 Personal history of nicotine dependence; Z90.710 Acquired absence of both cervix and uterus; Z88.8 Allergy status to other drugs, medicaments and biological substances; Z87.01 Personal history of pneumonia (recurrent); X58.XXXA Exposure to other specified factors, initial encounter
CPT/HCPCS: 36415; 71045; 80048; 80053; 82533; 83735; 84132; 84443; 85025; 85027; 85610; 85730; 87636; 93005; 94640; 94760; 99285

== ENCOUNTER 2022-03-08 08:57 | Inpatient (IN) | payer MEDICARE ==
[2022-03-08 09:04] VITALS: TEMP 97.8
[2022-03-08] MEDS ORDERED: SODIUM CHLORIDE 0.9% 500 ML 500 ML IV STA (09:23)
[2022-03-08] MEDS ORDERED: HYDROmorphone 0.5 MG/0.5 ML SYRINGE IVP STA (09:23)
--- NOTE | 2022-03-08 09:27 | ED ---
General Adult HPI - General Chief complaint: Shortness of Breath Stated complaint: SOB, hypertension, Abd pain Time Seen by Provider: 03/08/22 08:59 Source: patient, EMS, RN notes reviewed, old records reviewed Mode of arrival: EMS Limitations: no limitations - History of Present Illness Initial comments: 66-year-old female presenting for evaluation of abdominal pain. Patient states she's had increased abdominal pain over the past 2 days. She does take Keller and has a fentanyl patch which has not been alleviating her pain. She described as predominantly left-sided. She's had some diarrhea and nausea. No vomiting. No fever. She is on supplemental oxygen and has a current history of lung CVA and was scheduled for chemotherapy today. - Related Data Home Medications Medication Instructions Recorded Confirmed Albuterol Sulfate [Proair Hfa] 2 puff INHALATION RT-Q6H PRN 09/25/21 03/08/22 Montelukast Sodium [Singulair] 10 mg PO HS 09/25/21 03/08/22 Multivitamins, Thera [Multivitamin 1 tab PO DAILY 09/25/21 03/08/22 (formulary)] Cholecalciferol [Vitamin D3 (25 25 mcg PO DAILY 10/25/21 03/08/22 Mcg = 1000 Iu)] Lisinopril [Zestril] 5 mg PO HS 12/27/21 03/08/22 Lisinopril [Zestril] 10 mg PO DAILY 01/17/22 03/08/22 Zinc Gluconate [Zinc] 50 mg PO DAILY 01/17/22 03/08/22 HYDROcodone/APAP 10-325MG [Keller 1 tab PO Q4HR PRN 02/04/22 03/08/22 10-325] Levothyroxine Sodium [Synthroid] 125 mcg PO DAILY 03/08/22 03/08/22 Ondansetron [Zofran] 4 mg PO Q6H PRN 03/08/22 03/08/22 Previous Rx's Medication Instructions Recorded Ipratropium-Albuterol Nebulize 3 ml INHALATION RT-QID #120 ml 01/21/22 [Duoneb 0.5 mg-3 mg/3 ml Soln] Pantoprazole [Protonix] 40 mg PO AC-BRKFST #30 tab 01/21/22 fentaNYL 25MCG/HR PATCH [Duragesic 1 patch TRANSDERM Q72H patch 02/12/22 25MCG/HR] Allergies Allergy/AdvReac Type Severity Reaction Status Date / Time procaine [From Novocain] Allergy Swelling Verified 03/08/22 09:44 throat Review of Systems ROS Statement: Those systems with pertinent positive or pertinent negative responses have been documented in the HPI. ROS Other: All systems not noted in ROS Statement are negative. 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, pt states no BM past 2 weeks since PET/cat scan, hypothyroid, bilateral pedal edema. Chemo treatment 01/17/2022 History of Any Multi-Drug Resistant Organisms: None Reported Past Surgical History: Hysterectomy Additional Past Surgical History / Comment(s): 09/27/21 bronchoscopy Past Anesthesia/Blood Transfusion Reactions: No Reported Reaction Past Psychological History: No Psychological Hx Reported Smoking Status: Former smoker Past Alcohol Use History: None Reported Past Drug Use History: None Reported - Past Family History Father History Unknown: Yes Family Medical History: No Reported History Mother Family Medical History: Diabetes Mellitus Additional Family Medical History / Comment(s): Mother had a "bad heart" and at the age of 56yrs General Exam Limitations: no limitations General appearance: alert, in no apparent distress, cachectic Head exam: Present: atraumatic, normocephalic ENT exam: Present: mucous membranes dry Respiratory exam: Present: decreased breath sounds. Absent: respiratory distress Cardiovascular Exam: Present: normal rhythm, tachycardia GI/Abdominal exam: Present: distended, tenderness, guarding Extremities exam: Present: normal inspection, normal capillary refill. Absent: pedal edema Neurological exam: Present: alert, oriented X3, CN II-XII intact. Absent: motor sensory deficit Psychiatric exam: Present: normal affect, normal mood Course Vital Signs 03/08/22 03/08/22 03/08/22 08:58 09:04 11:23 Temperature 97.8 F Pulse Rate 109 H 107 H Respiratory 18 20 18 Rate Blood Pressure 92/68 99/61 O2 Sat by Pulse 98 Oximetry EKG Findings - EKG Comments: EKG Findings:: EKG: Sinus tachycardia with PVC, rate of 110, VT interval 132, QRS duration 85, QTC 3:15. Medical Decision Making - Medical Decision Making 66-year-old female with history of metastatic adenocarcinoma of the long presenting with abdominal pain over the past 48 hours. Predominantly left- sided. Upon arrival the patient is tachycardic and has a borderline blood pressure. She has a distended diffusely tender abdomen. Workup is initiated, she has a significant leukocytosis she is anemic. She has a hypokalemic and hypoglycemic. She's given IV dextrose and potassium. She has chest x-ray showing a large mass in the right upper lung as well as suspected intraperitoneal free air. CT of the abdomen does confirm intraperitoneal free air. I did discuss patient's presentation at length with her primary care physician Dr. Aggarwal. There was some previous discussion about the goals of care and possible hospice given the current medical conditions. Case discussed with Dr. Hernandez covering for general surgery. - Lab Data Result diagrams: 03/08/22 09:25 03/08/22 09:25 Lab Results 03/08/22 03/08/22 03/08/22 Range/Units 09:25 09:25 09:25 WBC 35.0 H (3.8-10.6) k/uL RBC 3.67 L (3.80-5.40) m/uL Hgb 9.9 L (11.4-16.0) gm/dL Hct 33.4 L (34.0-46.0) % MCV 91.0 (80.0-100.0) fL MCH 27.0 (25.0-35.0) pg MCHC 29.7 L (31.0-37.0) g/dL RDW 20.8 H (11.5-15.5) % Plt Count 429 (150-450) k/uL MPV 7.2 Neutrophils % 96 % Lymphocytes % 2 % Monocytes % 2 % Eosinophils % 1 % Basophils % 0 % Neutrophils # 33.5 H (1.3-7.7) k/uL Lymphocytes # 0.6 L (1.0-4.8) k/uL Monocytes # 0.6 (0-1.0) k/uL Eosinophils # 0.2 (0-0.7) k/uL Basophils # 0.1 (0-0.2) k/uL Manual Slide Review Performed Hypochromasia Marked Anisocytosis Moderate PT 13.7 H (9.0-12.0) sec INR 1.3 H (<1.2) APTT 28.5 (22.0-30.0) sec Sodium 138 (137-145) mmol/L Potassium 3.2 L (3.5-5.1) mmol/L Chloride 108 H (98-107) mmol/L Carbon Dioxide 28 (22-30) mmol/L Anion Gap 2 mmol/L BUN 21 H (7-17) mg/dL Creatinine 1.15 H (0.52-1.04) mg/dL Est GFR (CKD-EPI)AfAm 57 (>60 ml/min/1.73 sqM) Est GFR (CKD-EPI)NonAf 49 (>60 ml/min/1.73 sqM) Glucose 46 L* (74-99) mg/dL POC Glucose (mg/dL) (75-99) mg/dL POC Glu [employer] ID Plasma Lactic Acid Savage (0.7-2.0) mmol/L Calcium 7.9 L (8.4-10.2) mg/dL Total Bilirubin 0.5 (0.2-1.3) mg/dL AST 18 (14-36) U/L ALT 11 (4-34) U/L Alkaline Phosphatase 130 H (38-126) U/L Total Protein 5.0 L (6.3-8.2) g/dL Albumin 1.7 L (3.5-5.0) g/dL Amylase <30 L (30-110) U/L Lipase 14 L (23-300) U/L 03/08/22 03/08/22 Range/Units 09:25 10:21 WBC (3.8-10.6) k/uL RBC (3.80-5.40) m/uL Hgb (11.4-16.0) gm/dL Hct (34.0-46.0) % MCV (80.0-100.0) fL MCH (25.0-35.0) pg MCHC (31.0-37.0) g/dL RDW (11.5-15.5) % Plt Count (150-450) k/uL MPV Neutrophils % % Lymphocytes % % Monocytes % % Eosinophils % % Basophils % % Neutrophils # (1.3-7.7) k/uL Lymphocytes # (1.0-4.8) k/uL Monocytes # (0-1.0) k/uL Eosinophils # (0-0.7) k/uL Basophils # (0-0.2) k/uL Manual Slide Review Hypochromasia Anisocytosis PT (9.0-12.0) sec INR (<1.2) APTT (22.0-30.0) sec Sodium (137-145) mmol/L Potassium (3.5-5.1) mmol/L Chloride (98-107) mmol/L Carbon Dioxide (22-30) mmol/L Anion Gap mmol/L BUN (7-17) mg/dL Creatinine (0.52-1.04) mg/dL Est GFR (CKD-EPI)AfAm (>60 ml/min/1.73 sqM) Est GFR (CKD-EPI)NonAf (>60 ml/min/1.73 sqM) Glucose (74-99) mg/dL POC Glucose (mg/dL) 144 H (75-99) mg/dL POC Glu [employer] ID [place], [place] Plasma Lactic Acid Savage 1.7 (0.7-2.0) mmol/L Calcium (8.4-10.2) mg/dL Total Bilirubin (0.2-1.3) mg/dL AST (14-36) U/L ALT (4-34) U/L Alkaline Phosphatase (38-126) U/L Total Protein (6.3-8.2) g/dL Albumin (3.5-5.0) g/dL Amylase (30-110) U/L Lipase (23-300) U/L Disposition Clinical Impression: Metastatic adenocarcinoma, Free intraperitoneal air, Sepsis Disposition: ADMITTED IP TO THIS HOSP Condition: Serious Is patient prescribed a controlled substance at d/c from ED?: No Time of Disposition: 11:25
[2022-03-08 09:35] LABS: Anisocytosis Moderate; Basophils # (A) 0.1 k/uL (0-0.2); Basophils % (A) 0 %; Eosinophils # (A) 0.2 k/uL (0-0.7); Eosinophils % (A) 1 %; HCT 33.4 % (34.0-46.0); HGB 9.9 gm/dL (11.4-16.0); Hypochromasia Marked; Lymphocytes # (A) 0.6 k/uL (1.0-4.8); Lymphocytes % (A) 2 %; MCHC 29.7 g/dL (31.0-37.0); Mean Platelet Volume 7.2; Monocytes # (A) 0.6 k/uL (0-1.0); Monocytes % (A) 2 %; Neutrophils # (A) 33.5 k/uL (1.3-7.7); Neutrophils % (A) 96 %; Platelet Count 429 k/uL (150-450); RBC 3.67 m/uL (3.80-5.40); RDW 20.8 % (11.5-15.5)
--- NOTE | 2022-03-08 09:43 | XR ---
EXAMINATION TYPE: XR chest 2V DATE OF EXAM: 03/08/2022 COMPARISON: CTA chest and chest x-ray February 04, 2022 and older studies. HISTORY: Shortness of breath. TECHNIQUE: Frontal and lateral views of the chest are obtained. FINDINGS: Persistent chronic emphysematous change some parenchymal fibrotic change. Persistent thic k walled cavitary lesion in the right lung apex. Some right-sided volume loss redemonstrated. The car diac silhouette size is stable and within normal limits. The osseous structures remain demineralize d. Suggestion of new free air below the right hemidiaphragm. IMPRESSION: Chronic changes without new acute pulmonary process. Probable new pneumoperitoneum. Janelle ent has CT abdomen and pelvis ordered to confirm and further investigate.
[2022-03-08 09:51] LABS: ALT 11 U/L (4-34); AST 18 U/L (14-36); African American GFR (CKD) 57 (>60 ml/min/1.73 sqM); Albumin 1.7 g/dL (3.5-5.0); Alkaline Phosphatase 130 U/L (38-126); Amylase <30 U/L (30-110); Anion Gap 2 mmol/L; Blood Urea Nitrogen 21 mg/dL (7-17); Calcium 7.9 mg/dL (8.4-10.2); Carbon Dioxide 28 mmol/L (22-30); Chloride 108 mmol/L (98-107); Lipase 14 U/L (23-300); Non-African American GFR(CKD) 49 (>60 ml/min/1.73 sqM); Potassium 3.2 mmol/L (3.5-5.1); Sodium 138 mmol/L (137-145); Total Bilirubin 0.5 mg/dL (0.2-1.3)
[2022-03-08 10:02] LABS: INR 1.3 (<1.2); Partial Thromboplastin Time 28.5 sec (22.0-30.0); Prothrombin Time 13.7 sec (9.0-12.0)
[2022-03-08 10:03] LABS: Glucose 46 mg/dL (74-99)
[2022-03-08] MEDS: DEXTROSE 50% SYRINGE 50 ML IVP STA ×2 (10:08→20:43)
[2022-03-08] MEDS ORDERED: SODIUM CHLORIDE 0.9% 500 ML 500 ML IV ONE (10:11)
[2022-03-08 10:22] LABS: Glucose,Whole Blood 144 mg/dL (75-99)
[2022-03-08] MEDS ORDERED: PIPERACILLIN-TAZOBACTAM 3.375 GM in SODIUM CHLORIDE 0.9% 100 ML IVPB STA (10:46)
--- NOTE | 2022-03-08 11:00 | CT ---
EXAMINATION TYPE: CT abdomen pelvis w con DATE OF EXAM: 03/08/2022 COMPARISON: CT 10/25/2021 HISTORY: Abdominal pain CT DLP: 650.2 mGycm Automated exposure control for dose reduction was used. TECHNIQUE: Helical acquisition of images from the lung bases through the pelvis have been completed. CONTRAST: Performed without Oral Contrast and with IV Contrast, patient injected with 80 mL of Isovue 300. FINDINGS: There is been interval development of a small right pleural effusion greater than left. The re is an inguinal hernia on the right containing fat and some fluid LUNG BASES: There is emphysematous change, interstitial changes at the lung bases, some nodularity pr esent within the lingula, right lower lobe, largest nodule measures approximately 1 cm on axial image #2 in the right lower lobe, interstitial changes may reflect interstitial spread of carcinoma. AORTA: No significant abnormality is appreciated. LIVER/GB: Low-attenuation within the liver may be due to hepatic steatosis, gallbladder somewhat dist ended. PANCREAS: No significant abnormality is seen. SPLEEN: No significant abnormality is seen. ADRENALS: No significant abnormality is seen. KIDNEYS: Cortical cysts are present bilaterally similar to prior exam. REPRODUCTIVE ORGANS: Uterus and adnexal structures are not seen BOWEL: 2 fluid collections with associated air bubbles are present within the pelvis one is deep with in the pelvis just posterior to the region of what may represent the lower uterine segment, correlate with surgical history, this abscess measures approximately 3.2 cm x 2.6 cm, coronal image #70 and ax ial image #68, second abscess is present adjacent to the sigmoid colon, axial image 64 measuring 4.1 cm x 2.4 cm draped over the left side of the urinary bladder There is diverticular change in the sig moid colon. Some local air bubbles are present in the left lower quadrant along the mesenteric fat, t here may be local perforation at this level. Small bowel folds show some wall thickening. FREE AIR: There is pneumoperitoneum anteriorly in the upper abdomen but also along the mesentery, an terior, nondependent portions of the abdomen. ASCITES: Free fluid is present within the pelvis as well as about the liver and spleen inferior britt in. PELVIC ADENOPATHY: None visualized. RETROPERITONEAL ADENOPATHY: No Retroperitoneal Adenopathy visible. URINARY BLADDER: Air is present within the urinary bladder, correlate for instrumentation, consider involvement by the abscesses within the pelvis with the bladder, colonic vesicular fistula. OSSEOUS STRUCTURES: There is a compression deformity at L1 which has progressed in the interval, the re is a small soft tissue component, retropulsion is again noted similar to prior exam. IMPRESSION: PNEUMOPERITONEUM, SOURCE MAY BE FROM DIVERTICULAR CHANGES IN THE LEFT LOWER QUADRANT, THERE ARE DIVER TICULAR ABSCESSES PRESENT JUST TO THE LEFT OF MIDLINE DRAPED OVER THE URINARY BLADDER AND DEEP WITHIN THE PELVIS IN THE REGION OF THE CUL-DE-SAC. VERTEBRAL PLANA AT L1 HAS PROGRESSED IN THE INTERVAL, RE TROPULSION IS SIMILAR TO PRIOR EXAM, FINDINGS COMPATIBLE WITH METASTASIS. ASCITES. Pneumoperitoneum c alled to the referring clinician at the time of interpretation the exam. Additional findings above.
[2022-03-08] MEDS: POTASSIUM CHLORIDE 10 MEQ in WATER FOR INJECTION 1 100ML.BAG IVPB SCH ×4 (11:04→12:25)
[2022-03-08] MEDS ORDERED: HYDROmorphone 1 MG/ML 1 ML SYRINGE IVP STA (11:10)
[2022-03-08] MEDS ORDERED: HYDROmorphone 0.5 MG/0.5 ML SYRINGE IVP PRN ×3 (11:22→19:05)
[2022-03-08] MEDS ORDERED: NALOXONE 0.4 MG/ML 1 ML VIAL IV PRN (11:22)
[2022-03-08] MEDS ORDERED: HYDROmorphone 1 MG/ML 1 ML SYRINGE IVP PRN (11:22)
[2022-03-08] MEDS: SODIUM CHLORIDE 0.9% 1,000 ML IV SCH ×2 (11:55→19:59)
[2022-03-08 12:13] LABS: Glucose,Whole Blood 58 mg/dL (75-99)
[2022-03-08] MEDS ORDERED: DEXTROSE 50% SYRINGE 50 ML IVP STA (12:19)
[2022-03-08 12:30] LABS: Glucose,Whole Blood 154 mg/dL (75-99)
[2022-03-08] MEDS ORDERED: D5-0.9% NACL WITH KCL 20 MEQ/L 1,000 ML IV SCH ×2 (13:00→20:00)
[2022-03-08] MEDS ORDERED: ONDANSETRON 4 MG/2 ML VIAL IVP PRN (13:42)
--- NOTE | 2022-03-08 14:54 | P.GSCN ---
History of Present Illness Consult date: 03/08/22 History of present illness: REASON FOR CONSULTATION: Abdominal pain HISTORY OF PRESENT ILLNESS: The patient is a 66 year old female with multiple medical comorbidities including metastatic lung cancer, hypertensive heart disease, chronic obstructive pulmonary disease, gastroesophageal reflux disease, hypothyroidism who reports over 3 day history of lower abdominal pain. Patient reports poor appetite. She had seen her provider yesterday and was placed on antibiotics. Patient reports developing worsening lower abdominal pain last night into this morning hence presentation to the emergency room. Per discussion with the emergency room provider, patient had discussion with her primary care regarding hospice and end-of-life issues for stage IV lung cancer with metastases to spine status post radiation chemotherapy. Additional history is obtained from her daughter who is at bedside. Daughter reports that her mother never had a colonoscopy in the past. Last bowel movement several days ago with chronic constipation and without blood in stools. Patient reports that her abdominal pain may have been longer than 1 week. Family reports patient has barely been eating for1 week. Diagnostic studies demonstrate pneumoperitoneum hence Gen. surgery consultation. PAST MEDICAL HISTORY: See list and reviewed PAST SURGICAL HISTORY: See list and reviewed MEDICATIONS: See list and reviewed ALLERGIES: See list and reviewed SOCIAL HISTORY: See list and reviewed FAMILY HISTORY: See list and reviewed REVIEW OF ORGAN SYSTEMS: CONSTITUTIONAL: No fevers or chills. Has unintentional weight loss. EYES: Denies any trouble with vision. No glasses. HEENT: No difficulties with hearing. No nosebleeds. No difficulty swallowing. RESPIRATORY: Has metastatic lung cancer. She uses supplemental oxygen. Has chronic obstructive pulmonary disease. History of pneumonia CARDIOVASCULAR: Has hypertensive heart disease. GASTROINTESTINAL: Has change in bowel habits with constipation. No blood in stools. Has gastroesophageal reflux disease. GENITOURINARY: Denies any blood in urine or increased urinary frequency. NEUROLOGICAL: Denies any numbness or tingling along the distal extremities. No seizure disorders or headaches. MUSCULOSKELETAL: Has back pain, stiffness or joint arthritis. Has chronic pain. SKIN: No current skin cancer. No rash. PSYCHIATRIC: Denies current depression or suicidal thoughts. ENDOCRINE: Has hypothyroidism. Denies any blood sugar glucose intolerance. HEME/LYMPHATIC: Has metastatic adenocarcinoma of the lung. ALLERGY/IMMUNOLOGY: Recent radiation therapy. BREAST: Denies current breast lumps, pain or nipple discharge. PHYSICAL EXAM: VITALS: Reviewed CONSTITUTIONAL: Well developed and in no acute distress. EYES: Conjuctivae without sclera icterus. Extraocular movements grossly intact. HEAD, EARS, NOSE, THROAT: Moist buccal mucosa. Head is atraumatic, normocephalic. Hears conversational speech. No nasal drainage. NECK: No JV distention. No thyroidomegaly. RESPIRATORY: Non-labored respirations and equal bilateral excursions. CARDIOVASCULAR: 2+ radial pulses. ABDOMEN: Has abdominal distention. Diffusely tender. MUSCULOSKELETAL: No clubbing cyanosis. SKIN: Warm and well perfused with good skin turgor. NEUROLOGIC: Cranial nerves II through XII grossly intact. No focal or lateralizing signs. PSYCH: Appropriate affect. Alert and oriented to person, place and time. Displays appropriate insight. CLINCAL LABS: Reviewed. WBC over 35,000 with sepsis. Hemoglobin low 9.9 with anemia. Potassium low at 3.2. Glucose low 46 with hypoglycemia. Lactate 1.7 and normal. Albumin low 1.7. IMAGING: Independently reviewed CT of the abdomen and pelvis with dilated gallbladder. Pneumoperitoneum identified. Diverticulosis identified of the sigmoid colon with pelvic fluid. Abdominal ascites perihepatic identified. Compression fracture lumbar fracture identified. Fat-containing right inguinal hernia. This is my independent interpretation. Chest x-ray independently reviewed demonstrating free air underneath right diaphragm. This is my independent interpretation. RADIOLOGY: Report reviewed of CT of the abdomen and pelvis demonstrating diverticular abscess of 3 cm and 4 cm in the pelvis. Identified along the mesentery and liver. Right inguinal hernia identified. EKG: Reviewed with supraventricular tachycardia, PVCs, left atrial enlargement, abnormal EKG. ASSESSMENT: 1. Perforated viscus with pneumoperitoneum 2. Metastatic stage IV lung cancer to bone 3. Chronic obstructive pulmonary disease 4. Moderate to severe protein malnutrition with low albumin and weight loss 5. Sepsis 6. Hypoglycemia 7. Anemia PLAN: 1. Patient seen and evaluated regarding abnormal computed tomography scan for pneumoperitoneum and perforated colon. CT abdomen and pelvis independently reviewed. 2. Risk of surgery extremely high for mortality with current condition inc luding for cardiopulmonary arrest. Alternatively, conservative management with antibiotics, IV fluids, nothing by mouth status reviewed. 3. Hospice care advised due to multiple end-of-life issues. 4. Options of nonsurgical intervention and care plans reviewed. 5. Discussion with family and nurse and all questions addressed for over 30 minutes. 6. Hospice options advised. Continue IV antibiotics, pain meds as needed, nothing by mouth today. 7. Will continue to follow. 8. May have ice chips and popsicles ADVANCE DIRECTIVE: Thank you for this kind consultation. 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, pt states no BM past 2 weeks since PET/cat scan, hypothyroid, bilateral pedal edema. Chemo treatment 01/17/2022 History of Any Multi-Drug Resistant Organisms: None Reported Past Surgical History: Hysterectomy Additional Past Surgical History / Comment(s): 09/27/21 bronchoscopy Past Anesthesia/Blood Transfusion Reactions: No Reported Reaction Past Psychological History: No Psychological Hx Reported Additional Psychological History / Comment(s): Pt resides with grandson, son and other family. Pt recently started using cane to ambulate. She has not driven since recent diagnosis. Pt does want some DME, a BSC/walker/and hospital bed. Smoking Status: Former smoker Past Alcohol Use History: None Reported Additional Past Alcohol Use History / Comment(s): Pt started smoking in her teens and quit 08/2021. Past Drug Use History: None Reported Additional Drug Use History / Comment(s): Pt has not smoked marijuana in several months. Used for pain - Past Family History Father History Unknown: Yes Family Medical History: No Reported History Mother Family Medical History: Diabetes Mellitus Additional Family Medical History / Comment(s): Mother had a "bad heart" and at the age of 56yrs Medications and Allergies Home Medications Medication Instructions Recorded Confirmed Type Albuterol Sulfate [Proair Hfa] 2 puff INHALATION RT-Q6H PRN 09/25/21 03/08/22 History Montelukast Sodium [Singulair] 10 mg PO HS 09/25/21 03/08/22 History Multivitamins, Thera [Multivitamin 1 tab PO DAILY 09/25/21 03/08/22 History (formulary)] Cholecalciferol [Vitamin D3 (25 25 mcg PO DAILY 10/25/21 03/08/22 History Mcg = 1000 Iu)] Lisinopril [Zestril] 5 mg PO HS 12/27/21 03/08/22 History Lisinopril [Zestril] 10 mg PO DAILY 01/17/22 03/08/22 History Zinc Gluconate [Zinc] 50 mg PO DAILY 01/17/22 03/08/22 History Ipratropium-Albuterol Nebulize 3 ml INHALATION RT-QID #120 ml 01/21/22 03/08/22 Rx [Duoneb 0.5 mg-3 mg/3 ml Soln] Pantoprazole [Protonix] 40 mg PO AC-BRKFST #30 tab 01/21/22 03/08/22 Rx HYDROcodone/APAP 10-325MG [Barry 1 tab PO Q4HR PRN 02/04/22 03/08/22 History 10-325] fentaNYL 25MCG/HR PATCH [Duragesic 1 patch TRANSDERM Q72H patch 02/12/22 03/08/22 Rx 25MCG/HR] Levothyroxine Sodium [Synthroid] 125 mcg PO DAILY 03/08/22 03/08/22 History Ondansetron [Zofran] 4 mg PO Q6H PRN 03/08/22 03/08/22 History Allergies Allergy/AdvReac Type Severity Reaction Status Date / Time procaine [From Novocain] Allergy Swelling Verified 03/08/22 09:44 throat Surgical - Exam Vital Signs Temp Pulse Resp BP Pulse Ox 97.8 F 109 H 18 92/68 98 03/08/22 08:58 03/08/22 08:58 03/08/22 08:58 03/08/22 08:58 03/08/22 08:58 Results - Labs 03/08/22 09:25 03/08/22 19:35 Abnormal Lab Results - Last 24 Hours (Table) 03/08/22 03/08/22 03/08/22 Range/Units 09:25 09:25 09:25 WBC 35.0 H (3.8-10.6) k/uL RBC 3.67 L (3.80-5.40) m/uL Hgb 9.9 L (11.4-16.0) gm/dL Hct 33.4 L (34.0-46.0) % MCHC 29.7 L (31.0-37.0) g/dL RDW 20.8 H (11.5-15.5) % Neutrophils # 33.5 H (1.3-7.7) k/uL Lymphocytes # 0.6 L (1.0-4.8) k/uL PT 13.7 H (9.0-12.0) sec INR 1.3 H (<1.2) Potassium 3.2 L (3.5-5.1) mmol/L Chloride 108 H (98-107) mmol/L BUN 21 H (7-17) mg/dL Creatinine 1.15 H (0.52-1.04) mg/dL Glucose 46 L* (74-99) mg/dL POC Glucose (mg/dL) (75-99) mg/dL Calcium 7.9 L (8.4-10.2) mg/dL Alkaline Phosphatase 130 H (38-126) U/L Total Protein 5.0 L (6.3-8.2) g/dL Albumin 1.7 L (3.5-5.0) g/dL Amylase <30 L (30-110) U/L Lipase 14 L (23-300) U/L 03/08/22 03/08/22 03/08/22 Range/Units 10:21 12:12 12:29 WBC (3.8-10.6) k/uL RBC (3.80-5.40) m/uL Hgb (11.4-16.0) gm/dL Hct (34.0-46.0) % MCHC (31.0-37.0) g/dL RDW (11.5-15.5) % Neutrophils # (1.3-7.7) k/uL Lymphocytes # (1.0-4.8) k/uL PT (9.0-12.0) sec INR (<1.2) Potassium (3.5-5.1) mmol/L Chloride (98-107) mmol/L BUN (7-17) mg/dL Creatinine (0.52-1.04) mg/dL Glucose (74-99) mg/dL POC Glucose (mg/dL) 144 H 58 L 154 H (75-99) mg/dL Calcium (8.4-10.2) mg/dL Alkaline Phosphatase (38-126) U/L Total Protein (6.3-8.2) g/dL Albumin (3.5-5.0) g/dL Amylase (30-110) U/L Lipase (23-300) U/L Diabetes panel 03/08/22 Range/Units 09:25 Sodium 138 (137-145) mmol/L Potassium 3.2 L (3.5-5.1) mmol/L Chloride 108 H (98-107) mmol/L Carbon Dioxide 28 (22-30) mmol/L BUN 21 H (7-17) mg/dL Creatinine 1.15 H (0.52-1.04) mg/dL Glucose 46 L* (74-99) mg/dL Calcium 7.9 L (8.4-10.2) mg/dL AST 18 (14-36) U/L ALT 11 (4-34) U/L Alkaline Phosphatase 130 H (38-126) U/L Total Protein 5.0 L (6.3-8.2) g/dL Albumin 1.7 L (3.5-5.0) g/dL Calcium panel 03/08/22 Range/Units 09:25 Calcium 7.9 L (8.4-10.2) mg/dL Albumin 1.7 L (3.5-5.0) g/dL Pituitary panel 03/08/22 Range/Units 09:25 Sodium 138 (137-145) mmol/L Potassium 3.2 L (3.5-5.1) mmol/L Chloride 108 H (98-107) mmol/L Carbon Dioxide 28 (22-30) mmol/L BUN 21 H (7-17) mg/dL Creatinine 1.15 H (0.52-1.04) mg/dL Glucose 46 L* (74-99) mg/dL Calcium 7.9 L (8.4-10.2) mg/dL Adrenal panel 03/08/22 Range/Units 09:25 Sodium 138 (137-145) mmol/L Potassium 3.2 L (3.5-5.1) mmol/L Chloride 108 H (98-107) mmol/L Carbon Dioxide 28 (22-30) mmol/L BUN 21 H (7-17) mg/dL Creatinine 1.15 H (0.52-1.04) mg/dL Glucose 46 L* (74-99) mg/dL Calcium 7.9 L (8.4-10.2) mg/dL Total Bilirubin 0.5 (0.2-1.3) mg/dL AST 18 (14-36) U/L ALT 11 (4-34) U/L Alkaline Phosphatase 130 H (38-126) U/L Total Protein 5.0 L (6.3-8.2) g/dL Albumin 1.7 L (3.5-5.0) g/dL
[2022-03-08 16:45] LABS: Glucose,Whole Blood 60 mg/dL (75-99)
[2022-03-08 17:05] LABS: Glucose,Whole Blood 59 mg/dL (75-99)
[2022-03-08 17:31] LABS: Glucose,Whole Blood 68 mg/dL (75-99)
[2022-03-08 17:48] LABS: Glucose,Whole Blood 78 mg/dL (75-99)
--- NOTE | 2022-03-08 18:29 | P.CONS ---
History of Present Illness - Reason for Consult Consult date: 03/08/22 Treatment for cancer Requesting physician: Ricardo Galloway - History of Present Illness Jud is referred by Dr Lorenzana after recent CT Scan and bronchoscopy revealed Adenocarcinoma of lung She stated having increasing cough X 6-12 months, had CXR > CT Scan > RUL 7.9 cm mass with R hilar & Pre-carinal lymphadenopathy. PET Scan: Highly supicious RUL and lymphadenopathy, as well as, L1 metastatic lesion. C/O increasing back pain X 2 months, Tyleno+Motrin not enough for pain control. Has anorexia & weight loss of 30-40 LBS X 3-6 months. She smoked 1 PPD X 45 years, quit 1 months ago. She has been undergoing treatment with immune therapy, Keytruda, status post 4 doses when she presented to emergency with complaints of worsening abdominal pain. CT abdomen revealed pneumoperitoneum and surgery was consulted. Her recent cancer limited progression. We seen and evaluated her today and discussed treatment with surgery is appropriate given the circumstances. Likely unable to resolve without. She is wanting to think about her decision, from oncology standpoint surgical intervention is appropriate. Review of Systems All systems: negative Constitutional: Reports as per HPI 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, pt states no BM past 2 weeks since PET/cat scan, hypothyroid, bilateral pedal edema. Chemo treatment 01/17/2022 History of Any Multi-Drug Resistant Organisms: None Reported Past Surgical History: Hysterectomy Additional Past Surgical History / Comment(s): 09/27/21 bronchoscopy Past Anesthesia/Blood Transfusion Reactions: No Reported Reaction Past Psychological History: No Psychological Hx Reported Smoking Status: Former smoker Past Alcohol Use History: None Reported Past Drug Use History: None Reported - Past Family History Father History Unknown: Yes Family Medical History: No Reported History Mother Family Medical History: Diabetes Mellitus Additional Family Medical History / Comment(s): Mother had a "bad heart" and at the age of 56yrs Medications and Allergies Home Medications Medication Instructions Recorded Confirmed Type Albuterol Sulfate [Proair Hfa] 2 puff INHALATION RT-Q6H PRN 09/25/21 03/08/22 History Montelukast Sodium [Singulair] 10 mg PO HS 09/25/21 03/08/22 History Multivitamins, Thera [Multivitamin 1 tab PO DAILY 09/25/21 03/08/22 History (formulary)] Cholecalciferol [Vitamin D3 (25 25 mcg PO DAILY 10/25/21 03/08/22 History Mcg = 1000 Iu)] Lisinopril [Zestril] 5 mg PO HS 12/27/21 03/08/22 History Lisinopril [Zestril] 10 mg PO DAILY 01/17/22 03/08/22 History Zinc Gluconate [Zinc] 50 mg PO DAILY 01/17/22 03/08/22 History Ipratropium-Albuterol Nebulize 3 ml INHALATION RT-QID #120 ml 01/21/22 03/08/22 Rx [Duoneb 0.5 mg-3 mg/3 ml Soln] Pantoprazole [Protonix] 40 mg PO AC-BRKFST #30 tab 01/21/22 03/08/22 Rx HYDROcodone/APAP 10-325MG [[place]hal 1 tab PO Q4HR PRN 02/04/22 03/08/22 History 10-325] fentaNYL 25MCG/HR PATCH [Duragesic 1 patch TRANSDERM Q72H patch 02/12/22 03/08/22 Rx 25MCG/HR] Levothyroxine Sodium [Synthroid] 125 mcg PO DAILY 03/08/22 03/08/22 History Ondansetron [Zofran] 4 mg PO Q6H PRN 03/08/22 03/08/22 History Allergies Allergy/AdvReac Type Severity Reaction Status Date / Time procaine [From Novocain] Allergy Swelling Verified 03/08/22 09:44 throat Physical Exam Vitals: Vital Signs Temp Pulse Resp BP Pulse Ox 03/08/22 11:23 107 H 18 99/61 03/08/22 09:04 20 03/08/22 08:58 97.8 F 109 H 18 92/68 98 Intake and Output 03/07/22 03/08/22 03/08/22 22:59 06:59 14:59 Other: Weight 54.431 kg - Constitutional General appearance: cooperative, no acute distress - EENT Eyes: edentulous ENT: hard of hearing - Neck Neck: normal ROM - Respiratory Respiratory: bilateral: diminished - Gastrointestinal General gastrointestinal: distended, tenderness - Integumentary Integumentary: pale - Neurologic Neurologic: CNII-XII intact - Musculoskeletal Musculoskeletal: generalized weakness - Psychiatric Psychiatric: A&O x's 3, appropriate affect, intact judgment & insight Results CBC & Chem 7: 03/08/22 09:25 03/08/22 09:25 Labs: Abnormal Lab Results - Last 24 Hours (Table) 03/08/22 03/08/22 03/08/22 Range/Units 09:25 09:25 09:25 WBC 35.0 H (3.8-10.6) k/uL RBC 3.67 L (3.80-5.40) m/uL Hgb 9.9 L (11.4-16.0) gm/dL Hct 33.4 L (34.0-46.0) % MCHC 29.7 L (31.0-37.0) g/dL RDW 20.8 H (11.5-15.5) % Neutrophils # 33.5 H (1.3-7.7) k/uL Lymphocytes # 0.6 L (1.0-4.8) k/uL PT 13.7 H (9.0-12.0) sec INR 1.3 H (<1.2) Potassium 3.2 L (3.5-5.1) mmol/L Chloride 108 H (98-107) mmol/L BUN 21 H (7-17) mg/dL Creatinine 1.15 H (0.52-1.04) mg/dL Glucose 46 L* (74-99) mg/dL POC Glucose (mg/dL) (75-99) mg/dL Calcium 7.9 L (8.4-10.2) mg/dL Alkaline Phosphatase 130 H (38-126) U/L Total Protein 5.0 L (6.3-8.2) g/dL Albumin 1.7 L (3.5-5.0) g/dL Amylase <30 L (30-110) U/L Lipase 14 L (23-300) U/L 03/08/22 03/08/22 03/08/22 Range/Units 10:21 12:12 12:29 WBC (3.8-10.6) k/uL RBC (3.80-5.40) m/uL Hgb (11.4-16.0) gm/dL Hct (34.0-46.0) % MCHC (31.0-37.0) g/dL RDW (11.5-15.5) % Neutrophils # (1.3-7.7) k/uL Lymphocytes # (1.0-4.8) k/uL PT (9.0-12.0) sec INR (<1.2) Potassium (3.5-5.1) mmol/L Chloride (98-107) mmol/L BUN (7-17) mg/dL Creatinine (0.52-1.04) mg/dL Glucose (74-99) mg/dL POC Glucose (mg/dL) 144 H 58 L 154 H (75-99) mg/dL Calcium (8.4-10.2) mg/dL Alkaline Phosphatase (38-126) U/L Total Protein (6.3-8.2) g/dL Albumin (3.5-5.0) g/dL Amylase (30-110) U/L Lipase (23-300) U/L CT scan - abdomen: report reviewed CT scan - pelvis: report reviewed Assessment and Plan (1) Free intraperitoneal air Narrative/Plan: Surgery risks and benefits have been discussed Appropriate intervention for given situation, await patient decision Surgery is following Current Visit: Yes Status: Acute Code(s): K66.8 - OTHER SPECIFIED DISORDERS OF PERITONEUM SNOMED Code(s): 57340527 (2) Metastatic adenocarcinoma Narrative/Plan: Locally advanced with L1 lesion On immune therapy Current Visit: Yes Status: Acute Priority: Medium Code(s): C79.9 - SECONDARY MALIGNANT NEOPLASM OF UNSPECIFIED SITE SNOMED Code(s): 097842334719586 (3) Cancer associated pain Narrative/Plan: Fentanyl and norco at home Current Visit: No Status: Acute Code(s): G89.3 - NEOPLASM RELATED PAIN (ACUTE) (CHRONIC) SNOMED Code(s): 94625430761051 Plan: Dr. Eastman: I have completed the full history and physical and developed the full impression and plan, agree with dictation, dictated as a ascribe.
[2022-03-08] MEDS ORDERED: ALBUTEROL NEBULIZED 2.5 MG/3 ML INHALATION PRN (19:03)
[2022-03-08 19:59] LABS: Calcium 8.3 mg/dL (8.4-10.2); Potassium 3.2 mmol/L (3.5-5.1)
[2022-03-08] MEDS ORDERED: IPRATROPIUM-ALBUTEROL 3 ML NEB INHALATION SCH (20:00)
[2022-03-08] MEDS ORDERED: PIPERACILLIN-TAZOBACTAM 3.375 GM in SODIUM CHLORIDE 0.9% 100 ML IVPB SCH (20:00)
[2022-03-08 20:19] LABS: Glucose,Whole Blood 52 mg/dL (75-99)
[2022-03-08 20:34] LABS: Anisocytosis Moderate; Basophils # (A) 0.1 k/uL (0-0.2); Basophils % (A) 0 %; Eosinophils # (A) 0.1 k/uL (0-0.7); Eosinophils % (A) 0 %; HCT 35.8 % (34.0-46.0); HGB 10.1 gm/dL (11.4-16.0); Hypochromasia Marked; Lymphocytes # (A) 0.8 k/uL (1.0-4.8); Lymphocytes % (A) 2 %; MCH 26.2 pg (25.0-35.0); MCHC 28.3 g/dL (31.0-37.0); MCV 92.7 fL (80.0-100.0); Macrocytosis Slight; Mean Platelet Volume 7.2; Monocytes # (A) 0.6 k/uL (0-1.0); Monocytes % (A) 1 %; Neutrophils # (A) 46.5 k/uL (1.3-7.7); Neutrophils % (A) 96 %; Platelet Count 335 k/uL (150-450); RBC 3.86 m/uL (3.80-5.40); RDW 20.8 % (11.5-15.5); WBC 48.3 k/uL (3.8-10.6)
[2022-03-08 20:37] LABS: Glucose,Whole Blood 58 mg/dL (75-99)
[2022-03-08] MEDS: SODIUM CHLORIDE 0.9% 500 ML 500 ML IV SCH ×3 (20:45→21:21)
[2022-03-08] MEDS ORDERED: SODIUM CHLORIDE 0.9% 1,000 ML IV ONE (20:51)
[2022-03-08 20:57] LABS: Glucose,Whole Blood 112 mg/dL (75-99)
[2022-03-08] MEDS ORDERED: MONTELUKAST 10 MG TAB PO SCH (21:00)
[2022-03-08 21:11] LABS: Poikilocytosis (M) Present
[2022-03-08 22:43] VITALS: BP 92/57; PULSE 113; RESP 19
[2022-03-09] MEDS ORDERED: LEVOTHYROXINE 125 MCG TAB PO SCH (06:30)
== END 2022-03-08 22:15 | disposition hospice, inpatient (51) | DRG 871 ==
LOC: EC 08:57 → 3SCARD 11:22
PROVIDERS: ADMIT Family Medicine; ATTEND Family Medicine
DX: A41.9 Sepsis, unspecified organism (principal); K63.1 Perforation of intestine (nontraumatic); E43 Unspecified severe protein-calorie malnutrition; C34.90 Malignant neoplasm of unspecified part of unspecified bronchus or lung; C79.51 Secondary malignant neoplasm of bone; I47.1 Supraventricular tachycardia; J44.1 Chronic obstructive pulmonary disease with (acute) exacerbation; Z51.5 Encounter for palliative care; Z68.21 Body mass index [BMI] 21.0-21.9, adult; K66.8 Other specified disorders of peritoneum; I49.3 Ventricular premature depolarization; R19.7 Diarrhea, unspecified; D64.9 Anemia, unspecified; E03.9 Hypothyroidism, unspecified; E16.2 Hypoglycemia, unspecified; E87.6 Hypokalemia; I11.9 Hypertensive heart disease without heart failure; G89.3 Neoplasm related pain (acute) (chronic); K21.9 Gastro-esophageal reflux disease without esophagitis; Z79.890 Hormone replacement therapy; Z79.899 Other long term (current) drug therapy; Z83.3 Family history of diabetes mellitus; Z85.118 Personal history of other malignant neoplasm of bronchus and lung; Z87.891 Personal history of nicotine dependence; Z90.710 Acquired absence of both cervix and uterus; Z88.8 Allergy status to other drugs, medicaments and biological substances; Z87.01 Personal history of pneumonia (recurrent); Z86.73 Personal history of transient ischemic attack (TIA), and cerebral infarction without residual deficits
CPT/HCPCS: 36415; 71046; 74177; 80048; 80053; 82150; 83605; 83690; 85025; 85610; 85730; 87040; 93005; 96361; 96365; 96375; 96376; 99285

== ENCOUNTER 2022-03-08 21:27 | Inpatient (IN) | payer MEDICAID ==
[2022-03-08] MEDS ORDERED: ONDANSETRON 4 MG/2 ML VIAL IVP PRN (21:42)
[2022-03-08] MEDS ORDERED: LORazepam 2 MG/ML INJ IV PRN (21:42)
[2022-03-08] MEDS ORDERED: HALOPERIDOL LACTATE 5 MG/ML 1 ML VIAL IM PRN (21:42)
[2022-03-08] MEDS ORDERED: METOCLOPRAMIDE 5 MG/ML 2 ML VIAL IVP PRN (21:42)
[2022-03-08] MEDS ORDERED: MORPHINE SULFATE 4 MG/ML SYRINGE IVP PRN (22:08)
[2022-03-08] MEDS: MORPHINE SULFATE (100 MG/2 ML) 100 MG in SODIUM CHLORIDE 0.9% 100 ML IV SCH (22:44)
[2022-03-09] MEDS ORDERED: ATROPINE OPHTH SOLN 1% 5ML BTL SUBLINGUAL PRN
[2022-03-09] MEDS ORDERED: ACETAMINOPHEN SUPPOSITORY 650 MG SUPP RECTAL PRN
[2022-03-09 11:42] VITALS: PULSE 107
--- NOTE | 2022-03-09 13:39 | P.PN ---
Subjective Progress Note Date: 03/09/22 CHIEF COMPLAINT: Abdominal pain HISTORY OF PRESENT ILLNESS: The patient is a 66 year old female with multiple medical comorbidities including metastatic lung cancer who is admitted for abdominal pain. Diagnosis studies demonstrated pneumoperitoneum from possible perforated diverticulitis. Patient now in hospice and surrounded by family. REVIEW OF ORGAN SYSTEMS: No chest pain. No bowel movements. Now has change in mental status. PHYSICAL EXAM: VITALS: Reviewed CONSTITUTIONAL: Well developed and in no acute distress. EYES: Conjuctivae without sclera icterus. Extraocular movements grossly intact. HEAD, EARS, NOSE, THROAT: Head is atraumatic, normocephalic. Hears conversational speech. No nasal drainage. NECK: No JV distention. RESPIRATORY: Shallow respirations. CARDIOVASCULAR: 2+ radial pulses. ABDOMEN: Distended with tenderness. MUSCULOSKELETAL: No clubbing cyanosis. SKIN: Warm and well perfused with good skin turgor. NEUROLOGIC: Cranial nerves II through XII grossly intact. No focal or lateralizing signs. PSYCH: Lethargic. ASSESSMENT: 1. Perforated viscus with pneumoperitoneum 2. Metastatic stage IV lung cancer to bone 3. Chronic obstructive pulmonary disease 4. Moderate to severe protein malnutrition with low albumin and weight loss 5. Sepsis 6. Hypoglycemia 7. Anemia PLAN: 1. No surgical intervention. 2. Patient now NO CODE. ADVANCE DIRECTIVE: DNR Objective - Vital Signs Vital signs: Vital Signs Temp Pulse 107 H 03/09/22 11:39 Resp 15 03/09/22 11:39 BP Pulse Ox 95 03/09/22 11:39 Intake & Output 03/08/22 03/09/22 03/09/22 18:59 06:59 18:59 Intake Total 9.673 Balance 9.673 Weight 54.431 kg Intake: Intake, IV Titration 9.673 Amount Morphine Sulfate (100 mg/ 9.673 2 ml) 100 mg In Sodium Chloride 0.9% 100 ml @ 1 MG/HR 1.02 mls/hr IV . Q24H [facility] Rx#:[id number] Other: Voiding Method Diaper Diaper # Voids 1
[2022-03-09] MEDS: MORPHINE SULFATE (100 MG/2 ML) 100 MG in SODIUM CHLORIDE 0.9% 100 ML IV SCH (18:15)
[2022-03-10 03:44] VITALS: RESP 14
== END 2022-03-10 06:21 | disposition expired | DRG 951 ==
LOC: 3SCARD 22:18
PROVIDERS: ADMIT Family Medicine; ATTEND Family Medicine
DX: Z51.5 Encounter for palliative care (principal); A41.9 Sepsis, unspecified organism; E43 Unspecified severe protein-calorie malnutrition; C34.90 Malignant neoplasm of unspecified part of unspecified bronchus or lung; C79.51 Secondary malignant neoplasm of bone; K57.80 Diverticulitis of intestine, part unspecified, with perforation and abscess without bleeding; J44.9 Chronic obstructive pulmonary disease, unspecified; E16.2 Hypoglycemia, unspecified; D64.9 Anemia, unspecified; Z68.21 Body mass index [BMI] 21.0-21.9, adult; Z66 Do not resuscitate; Z88.4 Allergy status to anesthetic agent; Z28.311 Partially vaccinated for COVID-19